=== PATIENT | female | born 2000 | race American Indian/Alaskan Native ===

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

== ENCOUNTER 2020-02-24 05:37 | Emergency (ER) | payer MEDICAID ==
[2020-02-24 07:11] LABS: Bacteria,Urine 2+ /HPF (Negative); Bilirubin,Urine NEG (Negative); Blood,Urine SM (Negative); Color,Urine Yellow (Yellow)
[2020-02-24 07:17] LABS: WBC,Urine > 182.0 /HPF (0.0-6.0)
[2020-02-24 07:21] LABS: HCG Qualitative,Urine Negative (Negative)
== END 2020-02-24 09:04 | disposition left against medical advice (07) ==
LOC: ED 05:37
DX: R21 Rash and other nonspecific skin eruption (principal); Z53.21 Procedure and treatment not carried out due to patient leaving prior to being seen by health care provider
CPT/HCPCS: 81001; 81025

== ENCOUNTER 2020-04-21 04:48 | Emergency (ER) | payer MEDICAID ==
[2020-04-21 06:04] VITALS: BP 133/85
[2020-04-21 07:08] LABS: Bacteria,Urine 1+ /HPF (Negative); Bilirubin,Urine NEG (Negative); Blood,Urine NEG (Negative); Color,Urine Yellow (Yellow); Protein,Urine <15 mg/dL mg/dL (Negative); Urobilinogen,Urine < 2.0 mg/dL (<2.0); WBC,Urine < 1.0 /HPF (0.0-6.0)
[2020-04-21 07:10] LABS: HCG Qualitative,Urine Negative (Negative)
--- NOTE | 2020-04-21 08:23 | Emergency Department Report ---
ED Female HPI - General Chief complaint: Urogenital-Female Stated complaint: BURNING URINATION/VAGINAL DISCHARGE/POSS STD Time Seen by Provider: 04/21/20 07:33 Source: patient Mode of arrival: Ambulatory Limitations: No Limitations - History of Present Illness Initial comments: This is a 20-year-old female nontoxic, well nourished in appearance, no acute signs of distress presents to the ED with c/o of nausea and vomiting after only taking doxycycline. Patient stated that she was seen by her ACID WASH OPERATOR 2 days ago and was prescribed doxycycline for STDs and stated that every time she takes medications she vomits 1 time. Patient denies any abdominal pain, pelvic pain, chest pain, short of breath, fever, chills, headache, stiff neck, numbness or tingling. Patient denies any diarrhea or constipation. Denies any blood in stool. Patient denies any recent travels. Patient stated allergies to azithromycin. Patient denies any urinary symptoms. -: days(s) Severity scale (0 -10): 0 Improves with: none Worsens with: none Associated Symptoms: nausea/vomiting. denies: vaginal bleeding, abdominal pain, fever/chills, headaches, loss of appetite, dysuria, hematuria, rash, seizure, shortness of breath, syncope, weakness - Related Data Sexually active: Yes Previous Rx's Medication Instructions Recorded Last Taken Type levETIRAcetam [Keppra TAB] 500 mg PO BID #60 tablet 06/17/16 Unknown Rx Acetaminophen/Codeine [Tylenol 1 tab PO Q6H PRN #20 tab 11/28/16 Unknown Rx /Codeine # 3 tab] Amoxicillin/K Clav Tab [Augmentin 1 tab PO Q12HR #20 tab 11/28/16 Unknown Rx 875 mg] Neomy/Polymyx B/Hc (Otic) Soln 4 drops .ROUTE TID #10 ml 11/28/16 Unknown Rx [Cortisporin (Otic) Soln] Ondansetron [Zofran Odt] 4 mg PO Q8HR PRN #12 tab.rapdis 04/21/20 Unknown Rx Allergies Allergy/AdvReac Type Severity Reaction Status Date / Time azithromycin [From Zithromax] Allergy Rash Verified 08/24/13 07:30 ED Review of Systems ROS: Stated complaint: BURNING URINATION/VAGINAL DISCHARGE/POSS STD Other details as noted in HPI Constitutional: denies: chills, fever Eyes: denies: eye pain, eye discharge, vision change ENT: denies: ear pain, throat pain Respiratory: denies: cough, shortness of breath, wheezing Cardiovascular: denies: chest pain, palpitations Endocrine: no symptoms reported Gastrointestinal: nausea, vomiting. denies: abdominal pain, diarrhea, constipation, hematemesis, melena, hematochezia Genitourinary: denies: urgency, dysuria, discharge Musculoskeletal: denies: back pain, joint swelling, arthralgia Skin: denies: rash, lesions Neurological: denies: headache, weakness, paresthesias Psychiatric: denies: anxiety, depression Hematological/Lymphatic: denies: easy bleeding, easy bruising ED Past Medical Hx - Past Medical History Previous Medical History?: Yes Hx Diabetes: Yes Hx Seizures: Yes (new this admission) Hx Psychiatric Treatment: Yes (bipolar) - Surgical History Past Surgical History?: No - Social History Smoking Status: Never Smoker Substance Use Type: None - Medications Home Medications: Home Medications Medication Instructions Recorded Confirmed Last Taken Type levETIRAcetam [Keppra TAB] 500 mg PO BID #60 tablet 06/17/16 Unknown Rx Acetaminophen/Codeine [Tylenol 1 tab PO Q6H PRN #20 tab 11/28/16 Unknown Rx /Codeine # 3 tab] Amoxicillin/K Clav Tab [Augmentin 1 tab PO Q12HR #20 tab 11/28/16 Unknown Rx 875 mg] Neomy/Polymyx B/Hc (Otic) Soln 4 drops .ROUTE TID #10 ml 11/28/16 Unknown Rx [Cortisporin (Otic) Soln] Ondansetron [Zofran Odt] 4 mg PO Q8HR PRN #12 tab.rapdis 04/21/20 Unknown Rx ED Physical Exam - General Limitations: No Limitations General appearance: alert, in no apparent distress - Head Head exam: Present: atraumatic, normocephalic - Eye Eye exam: Present: normal appearance - Neck Neck exam: Present: normal inspection, full ROM - Respiratory Respiratory exam: Absent: respiratory distress - Cardiovascular Cardiovascular Exam: Present: regular rate - GI/Abdominal GI/Abdominal exam: Present: soft, normal bowel sounds. Absent: distended, tenderness, guarding, rebound, rigid, diminished bowel sounds - Extremities Exam Extremities exam: Present: normal inspection, full ROM - Back Exam Back exam: Present: normal inspection, full ROM - Neurological Exam Neurological exam: Present: alert, oriented X3, normal gait - Psychiatric Psychiatric exam: Present: normal affect, normal mood - Skin Skin exam: Present: warm, dry, intact, normal color. Absent: rash ED Course Vital Signs 04/21/20 05:47 Temperature 98.3 F Pulse Rate 85 Respiratory 18 Rate Blood Pressure 133/85 O2 Sat by Pulse 100 Oximetry - Reevaluation(s) Reevaluation #1: 04/21/20 08:21 Patient is speaking in full sentences with no signs of distress noted. ED Medical Decision Making - Medical Decision Making This is a 20-year-old female that presents with nausea and vomiting. Patient is stable and was examined by me. There is no abdominal tenderness. Patient is currently being treated and seen by ACID WASH OPERATOR for STDs. Urine unremarkable. Patient be discharged with Zofran and was instructed to take Zofran prior to taking medication for nausea and vomiting. Negative signs of symptoms of appendicitis, cholecystitis or acute abdomen. Labs obtained. UA obtained. Xr abdomen/chest xray obtained and dictated by the radiologist. Patient is notified of the report with no questions noted by the patient. Vital signs are stable prior to discharge. A by mouth challenge has been obtained and patient tolerated well with no nausea vomiting. Patient was also instructed to call her ACID WASH OPERATOR tomorrow and see if further medication needs to be adjusted due to vomiting. Patient was also instructed to Follow-up with a OBGYN doctor in 3-5 days or if symptoms worsen and continue return to emergency room as soon as possible. At time of discharge, the patient does not seem toxic or ill in appearance. No acute signs of distress noted. Patient agrees to discharge treatment plan of care. No further questions noted by the patient. Critical care attestation.: If time is entered above; I have spent that time in minutes in the direct care of this critically ill patient, excluding procedure time. ED Disposition Clinical Impression: Nausea & vomiting Qualifiers: Vomiting type: unspecified Vomiting Intractability: non-intractable Qualified Code(s): R11.2 - Nausea with vomiting, unspecified Disposition: DC-01 TO HOME OR SELFCARE Is pt being admited?: No Does the pt Need Aspirin: No Condition: Stable Instructions: Nausea and Vomiting, Adult Additional Instructions: Follow-up with a primary care doctor in 3-5 days or if symptoms worsen and continue return to emergency room as soon as possible. Prescriptions: Ondansetron [Zofran Odt] 4 mg PO Q8HR PRN #12 tab.rapdis PRN Reason: nausea Referrals: PRIMARY CAREMD [Primary Care Provider] - 3-5 Days CHARO GUO MD [Staff Physician] - 3-5 Days Forms: Work/School Release Form(ED)
== END 2020-04-21 08:37 | disposition home or self-care (01) ==
LOC: ED 04:48
DX: R11.2 Nausea with vomiting, unspecified (principal); E11.9 Type 2 diabetes mellitus without complications; R56.9 Unspecified convulsions; F31.9 Bipolar disorder, unspecified; Z79.899 Other long term (current) drug therapy; Z88.1 Allergy status to other antibiotic agents
CPT/HCPCS: 81001; 81025

== ENCOUNTER 2020-10-01 10:57 | Emergency (ER) | payer MEDICAID ==
--- NOTE | 2020-10-01 12:26 | Event Note ---
ED Screening Note Date of service: 10/01/20 Time: 12:22 ED Screening Note: Nurses is a 20-year-old diabetic female presents with hyperglycemia. Seems alcohol intoxicated. FBG > 600 Charge nurse notified This initial assessment/diagnostic orders/clinical plan/treatment(s) is/are subject to change based on patients health status, clinical progression and re- assessment by fellow clinical providers in the ED. Further treatment and workup at subsequent clinical providers discretion. Patient/guardian urged not to elope from the ED as their condition may be serious if not clinically assessed and managed. Initial orders include: Labs, urine, IV fluids, insulin 10
[2020-10-01 12:27] VITALS: BP 147/87
[2020-10-01 15:33] LABS: Bilirubin,Urine NEG (Negative); Blood,Urine MOD (Negative); Color,Urine Colorless (Yellow); Mucus,Urine FEW /HPF; Protein,Urine <15 mg/dL mg/dL (Negative); Urobilinogen,Urine < 2.0 mg/dL (<2.0); WBC,Urine < 1.0 /HPF (0.0-6.0)
--- NOTE | 2020-10-02 14:55 | Electrocardiograph Report ---
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
== END 2020-10-01 16:30 ==
LOC: ED 10:57
DX: E11.65 Type 2 diabetes mellitus with hyperglycemia (principal); Z53.21 Procedure and treatment not carried out due to patient leaving prior to being seen by health care provider
CPT/HCPCS: 81001

== ENCOUNTER 2020-10-02 10:25 | Inpatient (IN) | payer MEDICAID ==
[2020-10-02] MEDS ORDERED: NALOXONE 2 MG/2 ML INJ ONE (10:31)
[2020-10-02] MEDS ORDERED: SODIUM CHLORIDE 0.9% 1000 ML 1,000 ML IV ONE ×2 (10:34→11:34)
--- NOTE | 2020-10-02 10:39 | Emergency Department Report ---
HPI - General Time Seen by Provider: 10/02/20 10:34 - HPI HPI: This is a 20-year-old -[place] female presents to the emergency department from home unresponsive. Per the patient's significant other, who was not there when EMS arrived, the patient allegedly was awake and alert at about 6:30 AM. The patient's mother found her in this current unresponsive state just prior to presentation. EMS found the patient to have a critically high blood sugar on Accu-Chek. Initially the patient had hypertension and then began having hypotension. She was given some IV fluid resuscitation in route. Mom says that she has insulin-dependent diabetes for which she is on Lantus and another insulin medication, but she is often noncompliant and has been out of her medication for at least 1 week. Mom also admits that the patient has been taking "beans", which is apparently street sling for ecstasy. The patient has a history of bipolar disorder. She has been in diabetic ketoacidosis previously. Our records indicate that the patient has also been here for a drug overdose for suicidal intent. Patient is a poor historian secondary to her current medical condition. ED Past Medical Hx - Past Medical History Hx Diabetes: Yes Hx Seizures: Yes (new this admission) Hx Psychiatric Treatment: Yes (bipolar) - Social History Smoking Status: Never Smoker Substance Use Type: None - Medications Home Medications: Home Medications Medication Instructions Recorded Confirmed Last Taken Type levETIRAcetam [Keppra TAB] 500 mg PO BID #60 tablet 06/17/16 Unknown Rx Acetaminophen/Codeine [Tylenol 1 tab PO Q6H PRN #20 tab 11/28/16 Unknown Rx /Codeine # 3 tab] Amoxicillin/K Clav Tab [Augmentin 1 tab PO Q12HR #20 tab 11/28/16 Unknown Rx 875 mg] Neomy/Polymyx B/Hc (Otic) Soln 4 drops .ROUTE TID #10 ml 11/28/16 Unknown Rx [Cortisporin (Otic) Soln] Ondansetron [Zofran Odt] 4 mg PO Q8HR PRN #12 tab.rapdis 04/21/20 Unknown Rx ED Review of Systems ROS: Stated complaint: UNRESPONSIVE Other details as noted in HPI Comment: Unobtainable due to pts medical conditions Physical Exam - Physical Exam Physical Exam: GENERAL: The patient is ill-appearing. HENT: Normocephalic. Atraumatic. Patient has moist mucous membranes. EYES: Pupils equal reactive to light bilaterally. NECK: Supple. Trachea is midline. CHEST/LUNGS: Clear to auscultation. Shallow breaths. HEART/CARDIOVASCULAR: Regular. There is mild tachycardia. There is no murmur. ABDOMEN: Abdomen is soft, nontender. Patient has normal bowel sounds. There is no abdominal distention. SKIN: Skin is warm and dry. NEURO: Patient is unresponsive except to painful stimuli. Nonverbal. Not following commands. MUSCULOSKELETAL: There is no tenderness or deformity. ED Course - Consultations Consultation #1: 10/02/20 12:05 I spoke to the major account representative on-call, Dr. Pitt, to let him know about the patient's ED course thus far and the impending consult for ICU management. Given the patient's DKA and severe acidosis, he has recommended a sodium bicarb drip with 3 A in sterile water to be run at 100 cc/h. - Central Line Placement Right Femoral Consent Obtained: verbal consent (From Mom) Time Out Performed: Yes Patient Placed on Monitor/Pulse Ox: Yes MD Prep: mask, gown, gloves Central Line Prep: Chlorhexidine scrub Local Anesthesia Used: Lidocaine 1% Amount of Anesthesia Used (mls): 3 Ultrasound Used for Placement: Yes Central Line Lumen Inserted: triple Reason for Insertion: Volume Resuscitation Bloods Obtained for Lab: No Central Line Position: good blood return, all ports aspirated, flus, sutured in place with nyl Dressing Applied: Tegaderm, sterile gauze/tape Patient Tolerated Procedure: well Complications: none ED Medical Decision Making - Lab Data Result diagrams: 10/02/20 10:44 10/02/20 13:55 Lab Results 10/02/20 10/02/20 10/02/20 Range/Units 10:35 10:44 10:44 WBC 42.4 H* (4.5-11.0) K/mm3 RBC 3.60 L (3.65-5.03) M/mm3 Hgb 11.3 (10.1-14.3) gm/dl Hct 46.6 H (30.3-42.9) % MCV 130 H (79-97) fl MCH 31 (28-32) pg MCHC 24 L (30-34) % RDW 17.7 H (13.2-15.2) % Plt Count 316 (140-440) K/mm3 Lymph # (Auto) Gi Technician Add Manual Diff Complete Total Counted 200 Seg Neuts % (Manual) 73.5 H (40.0-70.0) % Band Neutrophils % 1.5 % Lymphocytes % (Manual) 15.5 (13.4-35.0) % Monocytes % (Manual) 9.0 H (0.0-7.3) % Metamyelocytes % 0.5 % Nucleated RBC % Not Reportable Seg Neutrophils # Man 31.2 H (1.8-7.7) K/mm3 Band Neutrophils # 0.6 K/mm3 Lymphocytes # (Manual) 6.6 H (1.2-5.4) K/mm3 Abs React Lymphs (Man) 0.0 K/mm3 Monocytes # (Manual) 3.8 H (0.0-0.8) K/mm3 Eosinophils # (Manual) 0.0 (0.0-0.4) K/mm3 Basophils # (Manual) 0.0 (0.0-0.1) K/mm3 Metamyelocytes # 0.2 K/mm3 Myelocytes # 0.0 K/mm3 Promyelocytes # 0.0 K/mm3 Blast Cells # 0.0 K/mm3 WBC Morphology Not Reportable Hypersegmented Neuts Not Reportable Hyposegmented Neuts Not Reportable Hypogranular Neuts Not Reportable Smudge Cells Not Reportable Toxic Granulation Not Reportable Toxic Vacuolation Not Reportable Dohle Bodies Not Reportable Pelger-Huet Anomaly Not Reportable Alessio Rods Not Reportable Platelet Estimate Consistent w auto Clumped Platelets Not Reportable Plt Clumps, EDTA Not Reportable Large Platelets Few Giant Platelets Not Reportable Platelet Satelliting Not Reportable Plt Morphology Comment Not Reportable RBC Morphology Not Reportable Dimorphic RBCs Not Reportable Polychromasia Few Hypochromasia Not Reportable Poikilocytosis Not Reportable Anisocytosis 1+ Microcytosis Not Reportable Macrocytosis 1+ Spherocytes Not Reportable Pappenheimer Bodies Not Reportable Sickle Cells Not Reportable Target Cells Not Reportable Tear Drop Cells Not Reportable Ovalocytes Not Reportable Helmet Cells Not Reportable [place] Bodies Not Reportable [place] Rings Not Reportable [place] Cells Not Reportable Bite Cells Not Reportable Crenated Cell Not Reportable Elliptocytes Not Reportable Acanthocytes (Spur) Not Reportable Rouleaux Not Reportable Hemoglobin C Crystals Not Reportable Schistocytes Not Reportable Malaria parasites Not Reportable Luis Bodies Not Reportable Hem Pathologist Commnt No VBG pH (7.320-7.420) Sodium 126 L (137-145) mmol/L Potassium 7.6 H* (3.6-5.0) mmol/L Chloride 75.9 L (98-107) mmol/L Carbon Dioxide < 2.0 L* (22-30) mmol/L Anion Gap 56 mmol/L BUN 42 H (7-17) mg/dL Creatinine 3.2 H (0.6-1.2) mg/dL Estimated GFR 22 ml/min BUN/Creatinine Ratio 13 % Glucose 1603 H* (65-100) mg/dL POC Glucose > 600 H (70-105) mg/dL Ketones Quantitative (Negative) Lactic Acid (0.7-2.0) mmol/L Calcium 8.5 (8.4-10.2) mg/dL Phosphorus (2.5-4.5) mg/dL Magnesium (1.7-2.3) mg/dL Total Bilirubin 0.20 (0.1-1.2) mg/dL AST 24 (5-40) units/L ALT 21 (7-56) units/L Alkaline Phosphatase 165 H (35-129) units/L Ammonia (25-60) umol/L Total Creatine Kinase 357 H (30-135) units/L Total Protein 7.2 (6.3-8.2) g/dL Albumin 3.8 L (3.9-5) g/dL Albumin/Globulin Ratio 1.1 % TSH (0.270-4.200) mlU/mL HCG, Qual (Negative) Salicylates (2.8-20.0) mg/dL Acetaminophen (10.0-30.0) ug/mL Plasma/Serum Alcohol (0-0.07) % 10/02/20 10/02/20 10/02/20 Range/Units 10:44 10:44 10:44 WBC (4.5-11.0) K/mm3 RBC (3.65-5.03) M/mm3 Hgb (10.1-14.3) gm/dl Hct (30.3-42.9) % MCV (79-97) fl MCH (28-32) pg MCHC (30-34) % RDW (13.2-15.2) % Plt Count (140-440) K/mm3 Lymph # (Auto) Add Manual Diff Total Counted Seg Neuts % (Manual) (40.0-70.0) % Band Neutrophils % % Lymphocytes % (Manual) (13.4-35.0) % Monocytes % (Manual) (0.0-7.3) % Metamyelocytes % % Nucleated RBC % Seg Neutrophils # Man (1.8-7.7) K/mm3 Band Neutrophils # K/mm3 Lymphocytes # (Manual) (1.2-5.4) K/mm3 Abs React Lymphs (Man) K/mm3 Monocytes # (Manual) (0.0-0.8) K/mm3 Eosinophils # (Manual) (0.0-0.4) K/mm3 Basophils # (Manual) (0.0-0.1) K/mm3 Metamyelocytes # K/mm3 Myelocytes # K/mm3 Promyelocytes # K/mm3 Blast Cells # K/mm3 WBC Morphology Hypersegmented Neuts Hyposegmented Neuts Hypogranular Neuts Smudge Cells Toxic Granulation Toxic Vacuolation Dohle Bodies Pelger-Huet Anomaly Alessio Rods Platelet Estimate Clumped Platelets Plt Clumps, EDTA Large Platelets Giant Platelets Platelet Satelliting Plt Morphology Comment RBC Morphology Dimorphic RBCs Polychromasia Hypochromasia Poikilocytosis Anisocytosis Microcytosis Macrocytosis Spherocytes Pappenheimer Bodies Sickle Cells Target Cells Tear Drop Cells Ovalocytes Helmet Cells Masters-[place] Bodies [place] Rings Yu Cells Bite Cells Crenated Cell Elliptocytes Acanthocytes (Spur) Rouleaux Hemoglobin C Crystals Schistocytes Malaria parasites Luis Bodies Hem Pathologist Commnt VBG pH (7.320-7.420) Sodium (137-145) mmol/L Potassium (3.6-5.0) mmol/L Chloride (98-107) mmol/L Carbon Dioxide (22-30) mmol/L Anion Gap mmol/L BUN (7-17) mg/dL Creatinine (0.6-1.2) mg/dL Estimated GFR ml/min BUN/Creatinine Ratio % Glucose (65-100) mg/dL POC Glucose (70-105) mg/dL Ketones Quantitative (Negative) Lactic Acid 8.20 H* (0.7-2.0) mmol/L Calcium (8.4-10.2) mg/dL Phosphorus (2.5-4.5) mg/dL Magnesium (1.7-2.3) mg/dL Total Bilirubin (0.1-1.2) mg/dL AST (5-40) units/L ALT (7-56) units/L Alkaline Phosphatase (35-129) units/L Ammonia 97.0 H (25-60) umol/L Total Creatine Kinase (30-135) units/L Total Protein (6.3-8.2) g/dL Albumin (3.9-5) g/dL Albumin/Globulin Ratio % TSH 0.317 (0.270-4.200) mlU/mL HCG, Qual (Negative) Salicylates (2.8-20.0) mg/dL Acetaminophen (10.0-30.0) ug/mL Plasma/Serum Alcohol (0-0.07) % 10/02/20 10/02/20 10/02/20 Range/Units 10:44 10:44 10:44 WBC (4.5-11.0) K/mm3 RBC (3.65-5.03) M/mm3 Hgb (10.1-14.3) gm/dl Hct (30.3-42.9) % MCV (79-97) fl MCH (28-32) pg MCHC (30-34) % RDW (13.2-15.2) % Plt Count (140-440) K/mm3 Lymph # (Auto) Add Manual Diff Total Counted Seg Neuts % (Manual) (40.0-70.0) % Band Neutrophils % % Lymphocytes % (Manual) (13.4-35.0) % Monocytes % (Manual) (0.0-7.3) % Metamyelocytes % % Nucleated RBC % Seg Neutrophils # Man (1.8-7.7) K/mm3 Band Neutrophils # K/mm3 Lymphocytes # (Manual) (1.2-5.4) K/mm3 Abs React Lymphs (Man) K/mm3 Monocytes # (Manual) (0.0-0.8) K/mm3 Eosinophils # (Manual) (0.0-0.4) K/mm3 Basophils # (Manual) (0.0-0.1) K/mm3 Metamyelocytes # K/mm3 Myelocytes # K/mm3 Promyelocytes # K/mm3 Blast Cells # K/mm3 WBC Morphology Hypersegmented Neuts Hyposegmented Neuts Hypogranular Neuts Smudge Cells Toxic Granulation Toxic Vacuolation Dohle Bodies Pelger-Huet Anomaly Alessio Rods Platelet Estimate Clumped Platelets Plt Clumps, EDTA Large Platelets Giant Platelets Platelet Satelliting Plt Morphology Comment RBC Morphology Dimorphic RBCs Polychromasia Hypochromasia Poikilocytosis Anisocytosis Microcytosis Macrocytosis Spherocytes Pappenheimer Bodies Sickle Cells Target Cells Tear Drop Cells Ovalocytes Helmet Cells Masters-[place] Bodies [place] Rings [place] Cells Bite Cells Crenated Cell Elliptocytes Acanthocytes (Spur) Rouleaux Hemoglobin C Crystals Schistocytes Malaria parasites Luis Bodies Hem Pathologist Commnt VBG pH (7.320-7.420) Sodium (137-145) mmol/L Potassium (3.6-5.0) mmol/L Chloride (98-107) mmol/L Carbon Dioxide (22-30) mmol/L Anion Gap mmol/L BUN (7-17) mg/dL Creatinine (0.6-1.2) mg/dL Estimated GFR ml/min BUN/Creatinine Ratio % Glucose (65-100) mg/dL POC Glucose (70-105) mg/dL Ketones Quantitative (Negative) Lactic Acid (0.7-2.0) mmol/L Calcium (8.4-10.2) mg/dL Phosphorus (2.5-4.5) mg/dL Magnesium (1.7-2.3) mg/dL Total Bilirubin (0.1-1.2) mg/dL AST (5-40) units/L ALT (7-56) units/L Alkaline Phosphatase (35-129) units/L Ammonia (25-60) umol/L Total Creatine Kinase (30-135) units/L Total Protein (6.3-8.2) g/dL Albumin (3.9-5) g/dL Albumin/Globulin Ratio % TSH (0.270-4.200) mlU/mL HCG, Qual (Negative) Salicylates < 0.3 L (2.8-20.0) mg/dL Acetaminophen 5.0 L (10.0-30.0) ug/mL Plasma/Serum Alcohol < 0.01 (0-0.07) % 10/02/20 10/02/20 10/02/20 Range/Units 10:44 10:44 10:44 WBC (4.5-11.0) K/mm3 RBC (3.65-5.03) M/mm3 Hgb (10.1-14.3) gm/dl Hct (30.3-42.9) % MCV (79-97) fl MCH (28-32) pg MCHC (30-34) % RDW (13.2-15.2) % Plt Count (140-440) K/mm3 Lymph # (Auto) Add Manual Diff Total Counted Seg Neuts % (Manual) (40.0-70.0) % Band Neutrophils % % Lymphocytes % (Manual) (13.4-35.0) % Monocytes % (Manual) (0.0-7.3) % Metamyelocytes % % Nucleated RBC % Seg Neutrophils # Man (1.8-7.7) K/mm3 Band Neutrophils # K/mm3 Lymphocytes # (Manual) (1.2-5.4) K/mm3 Abs React Lymphs (Man) K/mm3 Monocytes # (Manual) (0.0-0.8) K/mm3 Eosinophils # (Manual) (0.0-0.4) K/mm3 Basophils # (Manual) (0.0-0.1) K/mm3 Metamyelocytes # K/mm3 Myelocytes # K/mm3 Promyelocytes # K/mm3 Blast Cells # K/mm3 WBC Morphology Hypersegmented Neuts Hyposegmented Neuts Hypogranular Neuts Smudge Cells Toxic Granulation Toxic Vacuolation Dohle Bodies Pelger-Huet Anomaly Alessio Rods Platelet Estimate Clumped Platelets Plt Clumps, EDTA Large Platelets Giant Platelets Platelet Satelliting Plt Morphology Comment RBC Morphology Dimorphic RBCs Polychromasia Hypochromasia Poikilocytosis Anisocytosis Microcytosis Macrocytosis Spherocytes Pappenheimer Bodies Sickle Cells Target Cells Tear Drop Cells Ovalocytes Helmet Cells Masters-[place] Bodies [place] Rings Yu Cells Bite Cells Crenated Cell Elliptocytes Acanthocytes (Spur) Rouleaux Hemoglobin C Crystals Schistocytes Malaria parasites Luis Bodies Hem Pathologist Commnt VBG pH 6.867 L* (7.320-7.420) Sodium (137-145) mmol/L Potassium (3.6-5.0) mmol/L Chloride (98-107) mmol/L Carbon Dioxide (22-30) mmol/L Anion Gap mmol/L BUN (7-17) mg/dL Creatinine (0.6-1.2) mg/dL Estimated GFR ml/min BUN/Creatinine Ratio % Glucose (65-100) mg/dL POC Glucose (70-105) mg/dL Ketones Quantitative Large (Negative) Lactic Acid (0.7-2.0) mmol/L Calcium (8.4-10.2) mg/dL Phosphorus (2.5-4.5) mg/dL Magnesium (1.7-2.3) mg/dL Total Bilirubin (0.1-1.2) mg/dL AST (5-40) units/L ALT (7-56) units/L Alkaline Phosphatase (35-129) units/L Ammonia (25-60) umol/L Total Creatine Kinase (30-135) units/L Total Protein (6.3-8.2) g/dL Albumin (3.9-5) g/dL Albumin/Globulin Ratio % TSH (0.270-4.200) mlU/mL HCG, Qual Negative (Negative) Salicylates (2.8-20.0) mg/dL Acetaminophen (10.0-30.0) ug/mL Plasma/Serum Alcohol (0-0.07) % 10/02/20 10/02/20 10/02/20 Range/Units 12:14 12:35 12:35 WBC (4.5-11.0) K/mm3 RBC (3.65-5.03) M/mm3 Hgb (10.1-14.3) gm/dl Hct (30.3-42.9) % MCV (79-97) fl MCH (28-32) pg MCHC (30-34) % RDW (13.2-15.2) % Plt Count (140-440) K/mm3 Lymph # (Auto) Add Manual Diff Total Counted Seg Neuts % (Manual) (40.0-70.0) % Band Neutrophils % % Lymphocytes % (Manual) (13.4-35.0) % Monocytes % (Manual) (0.0-7.3) % Metamyelocytes % % Nucleated RBC % Seg Neutrophils # Man (1.8-7.7) K/mm3 Band Neutrophils # K/mm3 Lymphocytes # (Manual) (1.2-5.4) K/mm3 Abs React Lymphs (Man) K/mm3 Monocytes # (Manual) (0.0-0.8) K/mm3 Eosinophils # (Manual) (0.0-0.4) K/mm3 Basophils # (Manual) (0.0-0.1) K/mm3 Metamyelocytes # K/mm3 Myelocytes # K/mm3 Promyelocytes # K/mm3 Blast Cells # K/mm3 WBC Morphology Hypersegmented Neuts Hyposegmented Neuts Hypogranular Neuts Smudge Cells Toxic Granulation Toxic Vacuolation Dohle Bodies Pelger-Huet Anomaly Alessio Rods Platelet Estimate Clumped Platelets Plt Clumps, EDTA Large Platelets Giant Platelets Platelet Satelliting Plt Morphology Comment RBC Morphology Dimorphic RBCs Polychromasia Hypochromasia Poikilocytosis Anisocytosis Microcytosis Macrocytosis Spherocytes Pappenheimer Bodies Sickle Cells Target Cells Tear Drop Cells Ovalocytes Helmet Cells Masters-[place] Bodies [place] Rings [place] Cells Bite Cells Crenated Cell Elliptocytes Acanthocytes (Spur) Rouleaux Hemoglobin C Crystals Schistocytes Malaria parasites Luis Bodies Hem Pathologist Commnt VBG pH (7.320-7.420) Sodium 128 L (137-145) mmol/L Potassium 7.5 H* (3.6-5.0) mmol/L Chloride 81.1 L (98-107) mmol/L Carbon Dioxide 3 L* (22-30) mmol/L Anion Gap 51 mmol/L BUN 42 H (7-17) mg/dL Creatinine 3.4 H (0.6-1.2) mg/dL Estimated GFR 20 ml/min BUN/Creatinine Ratio 12 % Glucose 1556 H* (65-100) mg/dL POC Glucose (70-105) mg/dL Ketones Quantitative (Negative) Lactic Acid 7.70 H* (0.7-2.0) mmol/L Calcium 7.7 L (8.4-10.2) mg/dL Phosphorus 16.10 H (2.5-4.5) mg/dL Magnesium 3.50 H (1.7-2.3) mg/dL Total Bilirubin (0.1-1.2) mg/dL AST (5-40) units/L ALT (7-56) units/L Alkaline Phosphatase (35-129) units/L Ammonia (25-60) umol/L Total Creatine Kinase (30-135) units/L Total Protein (6.3-8.2) g/dL Albumin (3.9-5) g/dL Albumin/Globulin Ratio % TSH (0.270-4.200) mlU/mL HCG, Qual (Negative) Salicylates (2.8-20.0) mg/dL Acetaminophen (10.0-30.0) ug/mL Plasma/Serum Alcohol (0-0.07) % - EKG Data -: EKG Interpreted by Me EKG shows normal: sinus rhythm, axis (Left axis deviation), intervals (Prolonged QTC), QRS complexes (Nonspecific IVCD, LVH), ST-T waves Rate: normal - EKG Data When compared to previous EKG there are: previous EKG unavailable Interpretation: other (Sinus rhythm at 89 bpm, left axis deviation, prolonged QTC, IVCD, LVH.) - Radiology Data Radiology results: report reviewed, image reviewed interpreted by me: Chest x-ray does not show any acute process. There are no pleural effusions, obvious pneumonia and there is no pneumothorax. No significant cardiomegaly. CT ABDOMEN AND PELVIS WITHOUT CONTRAST INDICATION / CLINICAL INFORMATION: ABD Pain, leukocytosis, DKA. TECHNIQUE: Axial CT images were obtained through the abdomen and pelvis without IV contrast. All CT scans at this location are performed using CT dose reduction for ALARA by means of automated exposure control. COMPARISON: None available. FINDINGS: LOWER CHEST: No significant abnormality. LIVER: No significant abnormality. GALLBLADDER: No significant abnormality. BILE DUCTS: No significant abnormality. PANCREAS: No significant abnormality. SPLEEN: No significant abnormality. ADRENALS: No significant abnormality. RIGHT KIDNEY / URETER: No significant abnormality. LEFT KIDNEY / URETER: No significant abnormality. STOMACH / SMALL BOWEL: No significant abnormality. COLON: No significant abnormality. APPENDIX: No significant abnormality. PERITONEUM: No free fluid. No free air. No fluid collection. LYMPH NODES: No significant adenopathy. VASCULAR STRUCTURES: No significant abnormality. URINARY BLADDER: Rebollar catheter in satisfactory position. REPRODUCTIVE ORGANS: No significant abnormality. ADDITIONAL FINDINGS: Right femoral catheter in satisfactory position. SKELETAL SYSTEM: No significant abnormality. IMPRESSION: No acute abnormality. CT head/brain wo con INDICATION: Altered mental status. TECHNIQUE: Routine CT head without contrast. All CT scans at this location are performed using CT dose reduction for ALARA by means of automated exposure control. COMPARISON: Head CT on 06/14/2016 FINDINGS: Exam is mildly limited due to motion artifact. BRAIN / INTRACRANIAL CONTENTS: No appreciable hemorrhage, mass effect, midline shift, or hydrocephalus. No appreciable acute large territorial or lacunar infarct. ORBITS: No significant abnormality of visualized orbits. SINUSES / MASTOIDS: No significant abnormality of visualized sinuses and mastoid air cells. ADDITIONAL FINDINGS: None. IMPRESSION: 1. Mildly limited exam due to motion artifact. No appreciable acute intracranial abnormality. - Medical Decision Making This patient presents to the emergency department with altered mental status and a critically high blood sugar on Accu-Chek. Mom had also said that the patient had some recent ecstasy use. Even though there was no known opiate use, I gave her Narcan with hopes that she would return to normal mentation, but this did not work. The patient has the appearance of someone in severe DKA and this was later confirmed with her laboratory studies. Patient has a venous acidosis of 6.8, and anion gap of 56, a blood sugar of 1600. The patient also has a leukocytosis of about 40,000. She has hyper kalemia, hyperphosphatemia, hypocalcemia, hypomagnesemia. The patient was given 3 L of IV fluid resuscitation and still had hypotension. For this reason a right femoral vein CVC was placed so that pressors could be started. An insulin drip has been started. Due to the leukocytosis and a lactic acidosis of 8, the patient was treated empirically with IV antibiotics. Patient has acute renal failure with a GFR of about 20. CT scan of the head without contrast did not show any large vessel occlusion, hemorrhage, edema, hydrocephalus, or any other acute process. CT scan of the abdomen and pelvis without contrast also did not show any acute process. The major account representative was contacted and consulted. After consultation the patient was started on a sodium bicarbonate drip. Patient will be admitted to the ICU and was accepted for admission by the hospitalist, Dr. Hannah. Critical Care Time: Yes Critical care time in (mins) excluding proc time.: 80 Critical care attestation.: If time is entered above; I have spent that time in minutes in the direct care of this critically ill patient, excluding procedure time. Critical care time was spent on this patient in doing her initial evaluation, multiple reevaluations, ordering and interpretation of labs and imaging, IV antibiotics, multiple liters of IV fluid resuscitation due to hypotension and hyperglycemia, IV insulin drip, multiple discussions with the patient's family, discussion with the major account representative and hospitalist services. This does not include the separately billable procedures including the central venous catheter placement. Critical Care Time: 80 minutes ED Disposition Clinical Impression: DKA (diabetic ketoacidoses), Metabolic encephalopathy, Acute kidney injury (COLT) with acute tubular necrosis (ATN), Metabolic acidosis, Hyperkalemia, Hyperphosphatemia, SIRS (systemic inflammatory response syndrome) Disposition: [id number] OP ADMIT IP TO THIS HOSP Is pt being admited?: Yes Condition: Serious Time of Disposition: 15:17
[2020-10-02 11:33] LABS: Mean Corpuscular HGB Conc 24 % (30-34); Platelet Count 316 K/mm3 (140-440); Red Cell Distribution Width 17.7 % (13.2-15.2)
[2020-10-02 11:34] LABS: Hematocrit 46.6 % (30.3-42.9); Hemoglobin 11.3 gm/dl (10.1-14.3); Mean Corpuscular Volume 130 fl (79-97)
[2020-10-02] MEDS ORDERED: cefTRIAXone/NS 1 GM/50 ML 1 GM/50 ML BAG IV ONE (11:51)
[2020-10-02 11:54] LABS: Alanine Aminotransferase 21 units/L (7-56); Albumin 3.8 g/dL (3.9-5); BUN/Creatinine Ratio 13; Blood Urea Nitrogen 42 mg/dL (7-17); Calcium 8.5 mg/dL (8.4-10.2); Hemolysis Index 2
[2020-10-02 12:05] LABS: Band Neutrophils # (Manual) 0.6 K/mm3; Total Cells Counted 200
--- NOTE | 2020-10-02 12:06 | XRay Report ---
CHEST 1 VIEW 10/02/2020 11:42 AM INDICATION / CLINICAL INFORMATION: Altered mental status COMPARISON: None available. FINDINGS: SUPPORT DEVICES: None. HEART / MEDIASTINUM: No significant abnormality. LUNGS / PLEURA: No significant pulmonary or pleural abnormality. No pneumothorax. ADDITIONAL FINDINGS: No significant additional findings. IMPRESSION: 1. No acute findings. Signer Name: Josué Gaines MD Signed: 10/02/2020 12:01 PM Workstation Name: [id number]
[2020-10-02 12:07] LABS: Anisocytosis 1+; Large Platelets Few; Macrocytosis 1+; Platelet Estimate Consistent w Auto
[2020-10-02] MEDS ORDERED: SODIUM BICARB 8.4% 50 MEQ/50 ML SYRINGE IV ONE ×3 (12:24→16:46)
[2020-10-02] MEDS: SODIUM BICARBONATE 150 MEQ in WATER FOR INJECTION (PF) 1,000 ML IV SCH (12:47)
[2020-10-02] MEDS ORDERED: INSULIN REGULAR, HUMAN 100 UNITS in SODIUM CHLORIDE 0.9% 99 ML IV SCH (13:00)
[2020-10-02] MEDS ORDERED: DOXYCYCLINE HYCLATE 100 MG in SODIUM CHLORIDE 0.9% 250ML 250 ML IV ONE (13:00)
[2020-10-02] MEDS ORDERED: SODIUM CHLORIDE 0.9% 1000 ML 3,000 ML IV ONE (13:21)
--- NOTE | 2020-10-02 13:23 | History and Physical Report ---
History of Present Illness Chief complaint: Unresponsive History of present illness: 20 YO Female ith DM, Seizure Disorder, Bipolar Disorder, Suicide Attempt in 2017 presents to ED for evaluation. Patient is unresponsive at the time of my evaluation and is unable to provide history. Patient history taken from EMS s taff, ED staff, as well as the patient's mother who is at bedside during exam and interview. As per patient mother the patient was in her usual state of health and spending time with her significant other at around 0630 hrs. The mother arrived at the patient home and the patient was found to be unresponsive. As per the patient's mother the patient has been "taking beans" which is apparently street sling for the drug ecstasy. EMS was notified by the patient's mother and upon arrival the patient was found to be in distress. The patient was transported to [facility] for further care and evaluation of the aforementioned symptoms. The patient was seen and evaluated in the emergency department. All lab and imaging studies reviewed. The patient was found to have DKA, complicated by metabolic encephalopathy, acute kidney injury with acute tubular necrosis. The patient was admitted to ICU and initiated on DKA protocol. The patient was also found to have significant leukocytosis without obvious source of infection. Leukocytosis is suspected secondary to use of ecstasy at this time. Critical care team consulted in the emergency department. Patient is unresponsive at the time my evaluation but has a positive gag reflex and is able to protect her airway without difficulty. Prior admission on 06/14/2016 reviewed. All medication listed at time of admission has been reconciled. Past History Past Medical History: diabetes, seizures, other (See HPI) Past Surgical History: No surgical history, Other (Reviewed) Social history: single, other (Polysubstance abuse) Family history: hypertension Medications and Allergies Allergies Allergy/AdvReac Type Severity Reaction Status Date / Time azithromycin [From Zithromax] Allergy Rash Verified 08/24/13 07:30 Home Medications Medication Instructions Recorded Confirmed Last Taken Type levETIRAcetam [Keppra TAB] 500 mg PO BID #60 tablet 06/17/16 Unknown Rx Acetaminophen/Codeine [Tylenol 1 tab PO Q6H PRN #20 tab 11/28/16 Unknown Rx /Codeine # 3 tab] Amoxicillin/K Clav Tab [Augmentin 1 tab PO Q12HR #20 tab 11/28/16 Unknown Rx 875 mg] Neomy/Polymyx B/Hc (Otic) Soln 4 drops .ROUTE TID #10 ml 11/28/16 Unknown Rx [Cortisporin (Otic) Soln] Ondansetron [Zofran Odt] 4 mg PO Q8HR PRN #12 tab.rapdis 04/21/20 Unknown Rx Active Meds: Active Medications Doxycycline Hyclate 100 mg/ (Sodium Chloride) 250 mls @ 250 mls/hr IV ONCE ONE; Protocol Stop: 10/02/20 13:59 Sodium Bicarbonate 150 meq/ (Sterile Water) 1,150 mls @ 100 mls/hr IV DIRECT CLARE Last Admin: 10/02/20 12:47 Dose: 100 mls/hr Documented by: Calcium Gluconate 1,000 mg/ (Sodium Chloride) 110 mls @ 220 mls/hr IV ONCE ONE Stop: 10/02/20 13:59 Insulin Human Regular 100 (units/ Sodium Chloride) 100 mls @ 1 mls/hr IV TITR CLARE; Protocol Insulin Human Regular 100 (units/ Sodium Chloride) 100 mls @ 1 mls/hr IV TITR CLARE; Protocol Sodium Chloride (Nacl 0.9% 1000 Ml) 1,000 mls @ 150 mls/hr IV DIRECT CLARE Sodium Chloride (Nacl 0.9% 1000 Ml) 3,000 mls @ 999 mls/hr IV BOLUS ONE Stop: 10/02/20 16:21 Sodium Chloride (Sodium Chloride 0.9% 10 Ml Flush Syringe) 10 ml IV BID CLARE Sodium Chloride (Sodium Chloride 0.9% 10 Ml Flush Syringe) 10 ml IV PRN PRN PRN Reason: LINE FLUSH Review of Systems ROS unobtainable: due to mental status Exam - Constitutional Vitals: Temp Pulse Resp BP Pulse Ox 89 25 H 88/31 100 10/02/20 10:37 10/02/20 10:37 10/02/20 10:37 10/02/20 10:37 General appearance: Present: mild distress - EENT Eyes: Present: PERRL ENT: clear oral mucosa, hearing decreased - Neck Neck: Present: supple, normal ROM - Respiratory Respiratory effort: normal Respiratory: bilateral: CTA - Cardiovascular Rhythm: other (Tachycardia) Heart Sounds: Present: S1 & S2. Absent: rub, click - Extremities Extremities: pulses symmetrical, No edema Peripheral Pulses: within normal limits - Abdominal General gastrointestinal: Present: soft, non-tender, non-distended, normal bowel sounds Female genitourinary: Present: normal - Integumentary Integumentary: Present: clear, warm, dry - Musculoskeletal Musculoskeletal: generalized weakness - Psychiatric Psychiatric: no appropriate mood/affect, no intact judgment & insight, no memory intact - Neurologic Neurologic: CNII-XII intact, no focal deficits, moves all extremities, no gait normal Results - Labs CBC & Chem 7: 10/02/20 10:44 10/02/20 10:44 Labs: Abnormal lab results 10/02/20 10/02/20 10/02/20 Range/Units 10:35 10:44 10:44 WBC 42.4 H* (4.5-11.0) K/mm3 RBC 3.60 L (3.65-5.03) M/mm3 Hct 46.6 H (30.3-42.9) % MCV 130 H (79-97) fl MCHC 24 L (30-34) % RDW 17.7 H (13.2-15.2) % Seg Neuts % (Manual) 73.5 H (40.0-70.0) % Monocytes % (Manual) 9.0 H (0.0-7.3) % Seg Neutrophils # Man 31.2 H (1.8-7.7) K/mm3 Lymphocytes # (Manual) 6.6 H (1.2-5.4) K/mm3 Monocytes # (Manual) 3.8 H (0.0-0.8) K/mm3 VBG pH (7.320-7.420) Sodium 126 L (137-145) mmol/L Potassium 7.6 H* (3.6-5.0) mmol/L Chloride 75.9 L (98-107) mmol/L Carbon Dioxide < 2.0 L* (22-30) mmol/L BUN 42 H (7-17) mg/dL Creatinine 3.2 H (0.6-1.2) mg/dL Glucose 1603 H* (65-100) mg/dL POC Glucose > 600 H (70-105) mg/dL Lactic Acid (0.7-2.0) mmol/L Alkaline Phosphatase 165 H (35-129) units/L Ammonia (25-60) umol/L Total Creatine Kinase 357 H (30-135) units/L Albumin 3.8 L (3.9-5) g/dL Salicylates (2.8-20.0) mg/dL Acetaminophen (10.0-30.0) ug/mL 10/02/20 10/02/20 10/02/20 Range/Units 10:44 10:44 10:44 WBC (4.5-11.0) K/mm3 RBC (3.65-5.03) M/mm3 Hct (30.3-42.9) % MCV (79-97) fl MCHC (30-34) % RDW (13.2-15.2) % Seg Neuts % (Manual) (40.0-70.0) % Monocytes % (Manual) (0.0-7.3) % Seg Neutrophils # Man (1.8-7.7) K/mm3 Lymphocytes # (Manual) (1.2-5.4) K/mm3 Monocytes # (Manual) (0.0-0.8) K/mm3 VBG pH (7.320-7.420) Sodium (137-145) mmol/L Potassium (3.6-5.0) mmol/L Chloride (98-107) mmol/L Carbon Dioxide (22-30) mmol/L BUN (7-17) mg/dL Creatinine (0.6-1.2) mg/dL Glucose (65-100) mg/dL POC Glucose (70-105) mg/dL Lactic Acid 8.20 H* (0.7-2.0) mmol/L Alkaline Phosphatase (35-129) units/L Ammonia 97.0 H (25-60) umol/L Total Creatine Kinase (30-135) units/L Albumin (3.9-5) g/dL Salicylates < 0.3 L (2.8-20.0) mg/dL Acetaminophen (10.0-30.0) ug/mL 10/02/20 10/02/20 10/02/20 Range/Units 10:44 10:44 12:14 WBC (4.5-11.0) K/mm3 RBC (3.65-5.03) M/mm3 Hct (30.3-42.9) % MCV (79-97) fl MCHC (30-34) % RDW (13.2-15.2) % Seg Neuts % (Manual) (40.0-70.0) % Monocytes % (Manual) (0.0-7.3) % Seg Neutrophils # Man (1.8-7.7) K/mm3 Lymphocytes # (Manual) (1.2-5.4) K/mm3 Monocytes # (Manual) (0.0-0.8) K/mm3 VBG pH 6.867 L* (7.320-7.420) Sodium (137-145) mmol/L Potassium (3.6-5.0) mmol/L Chloride (98-107) mmol/L Carbon Dioxide (22-30) mmol/L BUN (7-17) mg/dL Creatinine (0.6-1.2) mg/dL Glucose (65-100) mg/dL POC Glucose (70-105) mg/dL Lactic Acid 7.70 H* (0.7-2.0) mmol/L Alkaline Phosphatase (35-129) units/L Ammonia (25-60) umol/L Total Creatine Kinase (30-135) units/L Albumin (3.9-5) g/dL Salicylates (2.8-20.0) mg/dL Acetaminophen 5.0 L (10.0-30.0) ug/mL Assessment and Plan - Patient Problems (1) DKA (diabetic ketoacidosis) Current Visit: No Status: Acute Plan to address problem: DKA protocol: Patient mated to ICU and initiated on insulin drip, IV fluid resuscitation therapy, serial lactic acid level, serial BMP, monitor anion gap, IV fluid resuscitation therapy, potassium repletion as per protocol. The high probability of a clinically significant, sudden or life threatening deterioration of the [cardiac, pulmonary, renal, endocrine, infectious disease] system(s) required my full and direct attention, intervention and personal management. The aggregate critical care time was [95] minutes. This time is in addition to time spent performing reported procedures but includes the following : [x] Data Review and interpretation [x] Patient assessment and monitoring of vital signs [x] Documentation [x] Medication orders and management (2) Seizure disorder Current Visit: Yes Status: Acute Plan to address problem: Neuro check, seizure protocol, aspiration precautions, continue antiepileptic therapy. (3) Metabolic encephalopathy Current Visit: Yes Status: Acute Plan to address problem: CT head, neuro check, seizure precautions, aspiration precautions, supportive care. Treat DKA. (4) Metabolic acidosis Current Visit: Yes Status: Acute (5) Acute kidney injury (COLT) with acute tubular necrosis (ATN) Current Visit: Yes Status: Acute Plan to address problem: IV fluid resuscitation therapy, monitor urine output every shift, repeat BMP in a.m. to monitor serum creatinine as well as GFR. (6) DVT prophylaxis Current Visit: Yes Status: Acute Plan to address problem: SCD to bilateral lower extremities while in bed, prophylactic anticoagulation
[2020-10-02] MEDS ORDERED: SODIUM CHLORIDE 0.9% 1000 ML 1,000 ML IV SCH (13:30)
[2020-10-02] MEDS ORDERED: CALCIUM GLUCONATE 1,000 MG in SODIUM CHLORIDE 0.9% 100 ML IV ONE ×2 (13:30→16:59)
--- NOTE | 2020-10-02 13:32 | Cat Scan Report ---
CT head/brain wo con INDICATION: Altered mental status. TECHNIQUE: Routine CT head without contrast. All CT scans at this location are performed using CT dos e reduction for ALARA by means of automated exposure control. COMPARISON: Head CT on 06/14/2016 FINDINGS: Exam is mildly limited due to motion artifact. BRAIN / INTRACRANIAL CONTENTS: No appreciable hemorrhage, mass effect, midline shift, or hydrocephalu s. No appreciable acute large territorial or lacunar infarct. ORBITS: No significant abnormality of visualized orbits. SINUSES / MASTOIDS: No significant abnormality of visualized sinuses and mastoid air cells. ADDITIONAL FINDINGS: None. IMPRESSION: 1. Mildly limited exam due to motion artifact. No appreciable acute intracranial abnormality. Signer Name: Josué Gaines MD Signed: 10/02/2020 1:27 PM Workstation Name: [id number]
--- NOTE | 2020-10-02 13:35 | Cat Scan Report ---
CT ABDOMEN AND PELVIS WITHOUT CONTRAST INDICATION / CLINICAL INFORMATION: ABD Pain, leukocytosis, DKA. TECHNIQUE: Axial CT images were obtained through the abdomen and pelvis without IV contrast. All CT scans at this location are performed using CT dose reduction for ALARA by means of automated exposure control. COMPARISON: None available. FINDINGS: LOWER CHEST: No significant abnormality. LIVER: No significant abnormality. GALLBLADDER: No significant abnormality. BILE DUCTS: No significant abnormality. PANCREAS: No significant abnormality. SPLEEN: No significant abnormality. ADRENALS: No significant abnormality. RIGHT KIDNEY / URETER: No significant abnormality. LEFT KIDNEY / URETER: No significant abnormality. STOMACH / SMALL BOWEL: No significant abnormality. COLON: No significant abnormality. APPENDIX: No significant abnormality. PERITONEUM: No free fluid. No free air. No fluid collection. LYMPH NODES: No significant adenopathy. VASCULAR STRUCTURES: No significant abnormality. URINARY BLADDER: Rebollar catheter in satisfactory position. REPRODUCTIVE ORGANS: No significant abnormality. ADDITIONAL FINDINGS: Right femoral catheter in satisfactory position. SKELETAL SYSTEM: No significant abnormality. IMPRESSION: No acute abnormality. Signer Name: Len Rendon MD Signed: 10/02/2020 1:30 PM Workstation Name: [id number]
[2020-10-02 13:45] LABS: Calcium 7.7 mg/dL (8.4-10.2)
[2020-10-02 14:28] LABS: BUN/Creatinine Ratio 13; Blood Urea Nitrogen 41 mg/dL (7-17); Calcium 7.3 mg/dL (8.4-10.2); Hemolysis Index 11
[2020-10-02] MEDS: INSULIN REGULAR, HUMAN 100 UNITS in SODIUM CHLORIDE 0.9% 99 ML IV SCH ×2 (14:30→22:51)
--- NOTE | 2020-10-02 14:52 | Electrocardiograph Report ---
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
--- NOTE | 2020-10-02 14:57 | Consultation ---
History of Present Illness Consult date: 10/02/20 Requesting physician: BROWN DAVILA Reason for consult: other (Severe DKA; Severe Sepsis) History of present illness: PULMONARY/CCM CONSULT NOTE (Full dictation # [id number]) Please see dictated notes for full details Past History Past Medical History: diabetes, seizures, other (See HPI) Past Surgical History: No surgical history, Other (Reviewed) Social history: single, other (Polysubstance abuse) Family history: hypertension Medications and Allergies Allergies Allergy/AdvReac Type Severity Reaction Status Date / Time azithromycin [From Zithromax] Allergy Rash Verified 08/24/13 07:30 Home Medications Medication Instructions Recorded Confirmed Last Taken Type levETIRAcetam [Keppra TAB] 500 mg PO BID #60 tablet 06/17/16 Unknown Rx Acetaminophen/Codeine [Tylenol 1 tab PO Q6H PRN #20 tab 11/28/16 Unknown Rx /Codeine # 3 tab] Amoxicillin/K Clav Tab [Augmentin 1 tab PO Q12HR #20 tab 11/28/16 Unknown Rx 875 mg] Neomy/Polymyx B/Hc (Otic) Soln 4 drops .ROUTE TID #10 ml 11/28/16 Unknown Rx [Cortisporin (Otic) Soln] Ondansetron [Zofran Odt] 4 mg PO Q8HR PRN #12 tab.rapdis 04/21/20 Unknown Rx Active Meds: Active Medications Enoxaparin Sodium (Enoxaparin 30 Mg/0.3 Ml Inj) 30 mg SUB-Q QDAY CLARE; Protocol Sodium Bicarbonate 150 meq/ (Sterile Water) 1,150 mls @ 100 mls/hr IV DIRECT CLARE Last Admin: 10/02/20 12:47 Dose: 100 mls/hr Documented by: Insulin Human Regular 100 (units/ Sodium Chloride) 100 mls @ 1 mls/hr IV TITR CLARE; Protocol Last Admin: 10/02/20 14:30 Dose: 8 units/hr, 8 mls/hr Documented by: Sodium Chloride (Nacl 0.9% 1000 Ml) 1,000 mls @ 150 mls/hr IV DIRECT CLARE Sodium Chloride (Nacl 0.9% 1000 Ml) 3,000 mls @ 999 mls/hr IV BOLUS ONE Stop: 10/02/20 16:21 NORepinephrine/NS 8 MG-250 ML (Norepinephrine/Ns 8 Mg-250 Ml (Double Conc)) 8 mg in 250 mls @ 3.75 mls/hr IV TITRATE CLARE; Protocol Levetiracetam (Levetiracetam 500 Mg Tab) 500 mg PO BID CLARE Sodium Chloride (Sodium Chloride 0.9% 10 Ml Flush Syringe) 10 ml IV BID CLARE Sodium Chloride (Sodium Chloride 0.9% 10 Ml Flush Syringe) 10 ml IV PRN PRN PRN Reason: LINE FLUSH Physical Examination Vital signs: Vital Signs BP Pulse Ox 84/35 100 10/02/20 10:35 10/02/20 10:35 Results - Laboratory Findings CBC and BMP: 10/02/20 23:55 10/03/20 09:01 Abnormal lab findings: Abnormal Labs 10/02/20 10/02/20 10/02/20 10:35 10:44 10:44 WBC 42.4 H* RBC 3.60 L Hct 46.6 H MCV 130 H MCHC 24 L RDW 17.7 H Seg Neuts % (Manual) 73.5 H Monocytes % (Manual) 9.0 H Seg Neutrophils # Man 31.2 H Lymphocytes # (Manual) 6.6 H Monocytes # (Manual) 3.8 H VBG pH Sodium 126 L Potassium 7.6 H* Chloride 75.9 L Carbon Dioxide < 2.0 L* BUN 42 H Creatinine 3.2 H Glucose 1603 H* POC Glucose > 600 H Lactic Acid Calcium Phosphorus Magnesium Alkaline Phosphatase 165 H Ammonia Total Creatine Kinase 357 H Albumin 3.8 L Salicylates Acetaminophen 10/02/20 10/02/20 10/02/20 10:44 10:44 10:44 WBC RBC Hct MCV MCHC RDW Seg Neuts % (Manual) Monocytes % (Manual) Seg Neutrophils # Man Lymphocytes # (Manual) Monocytes # (Manual) VBG pH Sodium Potassium Chloride Carbon Dioxide BUN Creatinine Glucose POC Glucose Lactic Acid 8.20 H* Calcium Phosphorus Magnesium Alkaline Phosphatase Ammonia 97.0 H Total Creatine Kinase Albumin Salicylates < 0.3 L Acetaminophen 10/02/20 10/02/20 10/02/20 10:44 10:44 12:14 WBC RBC Hct MCV MCHC RDW Seg Neuts % (Manual) Monocytes % (Manual) Seg Neutrophils # Man Lymphocytes # (Manual) Monocytes # (Manual) VBG pH 6.867 L* Sodium Potassium Chloride Carbon Dioxide BUN Creatinine Glucose POC Glucose Lactic Acid 7.70 H* Calcium Phosphorus Magnesium Alkaline Phosphatase Ammonia Total Creatine Kinase Albumin Salicylates Acetaminophen 5.0 L 10/02/20 10/02/20 10/02/20 12:35 12:35 13:55 WBC RBC Hct MCV MCHC RDW Seg Neuts % (Manual) Monocytes % (Manual) Seg Neutrophils # Man Lymphocytes # (Manual) Monocytes # (Manual) VBG pH Sodium 128 L Potassium 7.5 H* Chloride 81.1 L Carbon Dioxide 3 L* BUN 42 H Creatinine 3.4 H Glucose 1556 H* POC Glucose Lactic Acid 7.70 H* Calcium 7.7 L Phosphorus 16.10 H Magnesium 3.50 H Alkaline Phosphatase Ammonia Total Creatine Kinase Albumin Salicylates Acetaminophen 10/02/20 10/02/20 13:55 13:55 WBC RBC Hct MCV MCHC RDW Seg Neuts % (Manual) Monocytes % (Manual) Seg Neutrophils # Man Lymphocytes # (Manual) Monocytes # (Manual) VBG pH Sodium 134 L Potassium 7.6 H* Chloride 90.3 L Carbon Dioxide < 2.0 L* BUN 41 H Creatinine 3.1 H Glucose 1445 H* POC Glucose Lactic Acid Calcium 7.3 L Phosphorus 14.50 H Magnesium 3.20 H Alkaline Phosphatase Ammonia Total Creatine Kinase Albumin Salicylates Acetaminophen
[2020-10-02] MEDS ORDERED: NORepinephrine/NS 8 MG-250 ML 8 MG/250 ML INFUS..BTL IV SCH (15:00)
[2020-10-02 16:35] LABS: Calcium 7.6 mg/dL (8.4-10.2)
--- NOTE | 2020-10-02 17:46 | Consultation ---
History of Present Illness - Reason for Consult Consult date: 10/02/20 acute renal failure, hyperkalemia - History of Present Illness The patient is a 20 YO female with history significant for Type 1 DM, Seizure Disorder, Bipolar Disorder and Suicide Attempt in 2016 who presented to PSYCHIATRIC ED 10/02 for evaluation of AMS. Patient was confused and there was no family member at the bedside. The mother found patient unresponsive at home. Per mother the patient has been taking ecstasy. EMS was notified and the patient was transported to the ED for further evaluation. In the ED patient was found to have DKA, complicated by metabolic encephalopathy and acute kidney injury. Initial BP was 80s/30s. The patient received IV fluid bolus, started on Insulin drip per protocol and was admitted to ICU. Labs significant for wbc 42, Glucose 1603, K 7.6, bicarb <2, Creat 3.2, BUN 42 and Lactic acid 8.2. Nephrology was consulted for further evaluation and treatment of COLT. Past History Past Medical History: diabetes, seizures, other (See HPI) Past Surgical History: No surgical history, Other (Reviewed) Social history: single, other (Polysubstance abuse) Family history: hypertension Medications and Allergies Allergies Allergy/AdvReac Type Severity Reaction Status Date / Time azithromycin [From Zithromax] Allergy Rash Verified 08/24/13 07:30 Home Medications Medication Instructions Recorded Confirmed Last Taken Type levETIRAcetam [Keppra TAB] 500 mg PO BID #60 tablet 06/17/16 Unknown Rx Acetaminophen/Codeine [Tylenol 1 tab PO Q6H PRN #20 tab 11/28/16 Unknown Rx /Codeine # 3 tab] Amoxicillin/K Clav Tab [Augmentin 1 tab PO Q12HR #20 tab 11/28/16 Unknown Rx 875 mg] Neomy/Polymyx B/Hc (Otic) Soln 4 drops .ROUTE TID #10 ml 11/28/16 Unknown Rx [Cortisporin (Otic) Soln] Ondansetron [Zofran Odt] 4 mg PO Q8HR PRN #12 tab.rapdis 04/21/20 Unknown Rx Active Meds: Active Medications Enoxaparin Sodium (Enoxaparin 30 Mg/0.3 Ml Inj) 30 mg SUB-Q QDAY CLARE; Protocol Sodium Bicarbonate 150 meq/ (Sterile Water) 1,150 mls @ 100 mls/hr IV DIRECT CLARE Last Admin: 10/02/20 12:47 Dose: 100 mls/hr Documented by: Insulin Human Regular 100 (units/ Sodium Chloride) 100 mls @ 1 mls/hr IV TITR CLARE; Protocol Last Titration: 10/02/20 17:01 Dose: 11 units/hr, 11 mls/hr Documented by: Sodium Chloride (Nacl 0.9% 1000 Ml) 1,000 mls @ 150 mls/hr IV DIRECT CLARE NORepinephrine/NS 8 MG-250 ML (Norepinephrine/Ns 8 Mg-250 Ml (Double Conc)) 8 mg in 250 mls @ 3.75 mls/hr IV TITRATE CLARE; Protocol Levetiracetam (Levetiracetam 500 Mg Tab) 500 mg PO BID CLARE Sodium Chloride (Sodium Chloride 0.9% 10 Ml Flush Syringe) 10 ml IV BID CLARE Sodium Chloride (Sodium Chloride 0.9% 10 Ml Flush Syringe) 10 ml IV PRN PRN PRN Reason: LINE FLUSH Review of Systems ROS unobtainable: due to mental status Exam - Vital Signs Vital signs: Vital Signs BP Pulse Ox 84/35 100 10/02/20 10:35 10/02/20 10:35 Results - Lab Results 10/02/20 10:44 10/02/20 18:40 Most recent lab results Calcium 7.6 mg/dL (8.4-10.2) L 10/02/20 16:00 Phosphorus 14.50 mg/dL (2.5-4.5) H 10/02/20 13:55 Magnesium 3.20 mg/dL (1.7-2.3) H 10/02/20 13:55 Assessment and Plan 1. Acute kidney injury: Vasomotor COLT in the setting of hypotension and volume depletion. ATN likely. CT abdomen negative for hydro. Urine studies ordered. S/p IV fluid boluses. Continue IV fluids. Monitor renal function. Non-oliguric. Pt has neves catheter. Avoid nephrotoxic agents. Meds dosage based on GFR. Monitor for [employer]ING [employer]ANT [employer]PER[employer] needs. 2. FEN: Hyperkalemia, associated with very high blood sugar, on Insulin drip, monitor. No significant EKG changes. Severe anion-gap metabolic acidosis, 2/2 DKA/COLT/Lactic acidosis, monitor. On Bicarbonate drip. Monitor lytes and volume status. 3. DKA: On Insulin drip. 4. Acute metabolic encephalopathy: CT head brain negative. Followed by Neuro. 5. Leukocytosis. 6. Seizure disorder: Neuro check, seizure precautions, aspiration precautions, continue antiepileptic therapy. 7. Suspected drug OD. Subjective: Patient was seen and examined at the bedside. RN at the bedside. Examination: General appearance: well-developed, agitated, on restrains HEENT: CYNDI, atraumatic Neck: trachea midline Respiratory: Ctab Heart: S1S2, tachycardia, no murmur Abdomen: soft, bowel sounds heard, NT, ND Integumentary: no obvious rash Neurologic: lethargic, very confused, not following any command Ext: no edema noted : Neves catheter
[2020-10-02] MEDS: CALCIUM CHLORIDE 1,000 MG/10 ML SYRINGE IV ONE ×2 (18:26→18:33)
[2020-10-02 19:09] LABS: Creatinine,Urine 27.5 mg/dL (0.1-20.0)
[2020-10-02 19:15] LABS: Amphetamine Screen,Urine PRESUMPTIVE NEGATIVE; Benzodiazepines Screen,Urine PRESUMPTIVE NEGATIVE; Cannabinoid Screen,Urine PRESUMPTIVE NEGATIVE; Cocaine Screen,Urine PRESUMPTIVE NEGATIVE; Methadone Screen,Urine PRESUMPTIVE NEGATIVE; Opiate Screen,Urine PRESUMPTIVE NEGATIVE
[2020-10-02 19:18] LABS: Calcium 8.9 mg/dL (8.4-10.2)
[2020-10-02] MEDS: levETIRAcetam 500 MG TAB PO SCH (21:10)
[2020-10-02 22:01] LABS: Bilirubin,Urine NEG (Negative); Blood,Urine MOD (Negative); Color,Urine Straw (Yellow); Mucus,Urine FEW /HPF; Urobilinogen,Urine < 2.0 mg/dL (<2.0)
[2020-10-02 23:25] LABS: Calcium 9.2 mg/dL (8.4-10.2)
[2020-10-03 00:10] LABS: Hematocrit 29.7 % (30.3-42.9); Hemoglobin 10.3 gm/dl (10.1-14.3); Mean Corpuscular HGB Conc 35 % (30-34); Mean Corpuscular Volume 91 fl (79-97); Platelet Count 251 K/mm3 (140-440); Red Blood Count 3.26 M/mm3 (3.65-5.03); Red Cell Distribution Width 15.1 % (13.2-15.2)
[2020-10-03] MEDS: D5W/0.45% NACL/KCL 20 MEQ 20 MEQ/1,000 ML BAG IV SCH ×2 (01:06→09:21)
[2020-10-03] MEDS: SODIUM BICARBONATE 150 MEQ in WATER FOR INJECTION (PF) 1,000 ML IV SCH (06:07)
[2020-10-03] MEDS: levETIRAcetam 500 MG TAB PO SCH ×2 (09:20→22:07)
[2020-10-03] MEDS: ENOXAPARIN 30 MG/0.3 ML INJ SUB-Q SCH (09:21)
[2020-10-03 10:30] LABS: Calcium 8.4 mg/dL (8.4-10.2)
[2020-10-03] MEDS: INSULIN REGULAR, HUMAN 100 UNITS in SODIUM CHLORIDE 0.9% 99 ML IV SCH (10:56)
--- NOTE | 2020-10-03 14:11 | Progress Note ---
Assessment and Plan 1. Acute kidney injury: Vasomotor COLT in the setting of hypotension and volume depletion. ATN likely. CT abdomen negative for hydro. Urine studies ordered. S/p IV fluid boluses. Continue IV fluids. Pt has neves catheter. Non-oliguric. Monitor renal function. Creatinine level is improving. Avoid nephrotoxic agents. Meds dosage based on GFR. 2. FEN: Hyperkalemia, improved, monitor. Severe anion-gap metabolic acidosis, 2/2 DKA/COLT/Lactic acidosis, improved, monitor. Hypernatremia, on hypotonic IV fluids. Monitor lytes and volume status. 3. DKA: On Insulin drip. 4. Acute metabolic encephalopathy: CT head brain negative. 5. Leukocytosis. 6. Seizure disorder: Neuro check, seizure precautions, aspiration precautions, continue antiepileptic therapy. 7. Suspected drug OD. Subjective: Patient was seen and examined at the bedside. Examination: General appearance: well-developed, no distress, on restrains HEENT: CYNDI, atraumatic Neck: trachea midline Respiratory: Ctab Heart: S1S2, tachycardia, no murmur Abdomen: soft, bowel sounds heard, NT, ND Integumentary: no obvious rash Neurologic: lethargic, some confusion noted, not following any command Ext: no edema noted : Neves catheter Subjective Date of service: 10/03/20 Objective - Vital Signs Vital signs: Vital Signs - 12hr 10/03/20 10/03/20 10/03/20 03:00 04:00 05:00 Temperature 98.1 F Pulse Rate 130 H 127 H Respiratory 32 H 29 H 18 Rate Blood Pressure 124/76 125/73 111/62 O2 Sat by Pulse 100 100 100 Oximetry 10/03/20 10/03/20 10/03/20 06:00 07:00 08:00 Temperature 98.1 F Pulse Rate 124 H 126 H 103 H Respiratory 22 20 19 Rate Blood Pressure 116/68 113/74 124/84 O2 Sat by Pulse 100 100 99 Oximetry 10/03/20 10/03/20 09:01 11:54 Temperature 98.4 F Pulse Rate 126 H Respiratory 16 Rate Blood Pressure 131/80 O2 Sat by Pulse 100 Oximetry - Lab 10/02/20 23:55 10/03/20 09:01 Most recent lab results Calcium 8.4 mg/dL (8.4-10.2) 10/03/20 09:01 Phosphorus 3.40 mg/dL (2.5-4.5) D 10/03/20 09:01 Magnesium 3.20 mg/dL (1.7-2.3) H 10/02/20 13:55 Urine Creatinine 27.5 mg/dL (0.1-20.0) H 10/02/20 17:02 Urine Sodium 43 mmol/L 10/02/20 17:02 Medications & Allergies - Medications Allergies/Adverse Reactions: Allergies azithromycin [From Zithromax] Allergy (Verified 08/24/13 07:30) Rash Home Medications: Home Medications Medication Instructions Recorded Confirmed Last Taken Type levETIRAcetam [Keppra TAB] 500 mg PO BID #60 tablet 06/17/16 Unknown Rx Acetaminophen/Codeine [Tylenol 1 tab PO Q6H PRN #20 tab 11/28/16 Unknown Rx /Codeine # 3 tab] Amoxicillin/K Clav Tab [Augmentin 1 tab PO Q12HR #20 tab 11/28/16 Unknown Rx 875 mg] Neomy/Polymyx B/Hc (Otic) Soln 4 drops .ROUTE TID #10 ml 11/28/16 Unknown Rx [Cortisporin (Otic) Soln] Ondansetron [Zofran Odt] 4 mg PO Q8HR PRN #12 tab.rapdis 04/21/20 Unknown Rx Active Medications: Generic Name Dose Route Start Last Admin Trade Name Freq PRN Reason Stop Dose Admin Enoxaparin Sodium 30 mg 10/03/20 10:00 10/03/20 09:21 Enoxaparin 30 Mg/0.3 Ml Inj SUB-Q 30 mg QDAY CLARE Administration Protocol Famotidine 20 mg 10/03/20 13:00 Famotidine 20 Mg/2 Ml Inj IV QDAY CLARE Insulin Human Regular 100 100 mls @ 1 mls/hr 10/02/20 14:00 10/03/20 13:36 units/ Sodium Chloride IV 8 units/hr TITR CLARE 8 mls/hr Titration Protocol 1 UNITS/HR Sodium Chloride 1,000 mls @ 150 mls/hr 10/02/20 13:30 10/02/20 20:20 Nacl 0.9% 1000 Ml IV 150 mls/hr DIRECT CLARE Administration NORepinephrine/NS 8 MG-250 ML 8 mg in 250 mls @ 3.75 mls/hr 10/02/20 15:00 Norepinephrine/Ns 8 Mg-250 Ml (Double Conc) IV TITRATE CLARE Protocol 2 MCG/MIN Potassium Chloride/Dextrose/Sod Cl 20 meq in 1,000 mls @ 125 mls/hr 10/02/20 23:45 10/03/20 09:21 D5w/0.45% Nacl/Kcl 20 Meq IV 125 mls/hr DIRECT CLARE Administration Insulin Human NPH 15 unit 10/03/20 17:00 Insulin Nph, Human 100 Unit/1 Ml SUB-Q BIDDIAB CLARE Insulin Human Regular 0 units 10/03/20 16:30 Insulin Regular, Human 100 Units/1 Ml SUB-Q ACHS CLARE Protocol Levetiracetam 500 mg 10/02/20 22:00 10/03/20 09:20 Levetiracetam 500 Mg Tab PO 500 mg BID CLARE Administration Sodium Chloride 10 ml 10/02/20 22:00 10/03/20 09:22 Sodium Chloride 0.9% 10 Ml Flush Syringe IV 10 ml BID CLARE Administration Sodium Chloride 10 ml 10/02/20 14:00 Sodium Chloride 0.9% 10 Ml Flush Syringe IV PRN PRN LINE FLUSH
[2020-10-03] MEDS: FAMOTIDINE 20 MG/2 ML INJ IV SCH (14:34)
[2020-10-03 14:57] LABS: Calcium 8.2 mg/dL (8.4-10.2)
--- NOTE | 2020-10-03 15:52 | Progress Note ---
Assessment and Plan This is a 20-year-old female with history of diabetes mellitus type 1 seizure disorder bipolar disorder suicidal attempt in 2017 brought to the ER by EMS after being found unresponsive by the family member. On admission patient noted to have white count of 42,000, venous blood pH 6.8, sodium 126, creatinine 3.2, CO2 <2, lactic acid 8.2, blood glucose of 1603, blood in urine with positive ketones. Patient was placed on bicarbonate drip and insulin drip and admitted to ICU with DKA protocol. A/P: -- DKA (diabetic ketoacidosis) On admission blood glucose was 1603 with CO2 less than 2, lactic acid 8.2 and venous pH 6.8 Patient admitted with DKA protocol: Insulin drip along with bicarbonate drip Anion gap has resolved, serum CO2 and blood glucose levels significantly improved. We will stop insulin and bicarbonate drip Start on consistent carb diet SSI, long-acting insulin Check A1c -- Seizure disorder Neuro check, seizure protocol, aspiration precautions, continue antiepileptic therapy with IV Keppra twice daily -- Metabolic encephalopathy Likely due to severe DKA CT head, neuro check, seizure precautions, aspiration precautions, supportive care. -- Acute kidney injury (COLT) with acute tubular necrosis (ATN) IV fluid resuscitation therapy, monitor urine output every shift, repeat BMP in a.m. to monitor serum creatinine as well as GFR. Nephrology following --History of bipolar disorder We will consult psychiatry --Hyponatremia likely due to hyperglycemia, resolved --Hypernatremia, will place on hypotonic fluid, monitor BMP -- DVT prophylaxis SCD to bilateral lower extremities while in bed, prophylactic anticoagulation --Full CODE STATUS Daily clinical course: 10/03: Patient remains lethargic, anion gap closed, will start on consistent carb diet as tolerated, will stop insulin drip and bicarbonate drip. Will place on SSI and long-acting insulin. Check A1c. Creatinine today 1.4 with sodium 147. Change fluid to half-normal saline. Appreciate nephrology and critical care recommendation. Patient's Covid test is negative. Will transfer the patient to telemetry. We will also consult psychiatry. Subjective Date of service: 10/03/20 Interval history: Patient seen and examined. Medical records and medication list reviewed. No acute event overnight noted by the RN. Patient does not communicate and does not make any eye contact Discussed plan of care at bedside with patient's RN. Objective - Exam Narrative Exam: GENERAL: well-developed and well-nourished young -Citizen Of [place] lying on bed appeared to be in no discomfort. HEENT: Normocephalic. Atraumatic. No conjunctival congestion or icterus. Pat ient has moist mucous membranes. NECK: Supple. Trachea midline. CHEST/LUNGS: Clear to auscultated bilaterally, breathing nonlabored. No wheezes crackles or rhonchi. HEART/CARDIOVASCULAR: Regular in rate and rhythm. S1 and S2 positive. ABDOMEN: Abdomen is soft, nontender. Patient has normal bowel sounds. SKIN: There is no rash. Warm and dry. NEURO: Does not follow any command and noncommunicative MUSCULOSKELETAL: No joint effusion or tenderness. EXTRIMITY: No edema, no cyanosis or clubbing. PSYCH: Does not make any eye contact - Constitutional Vitals: Vital Signs - 12hr 10/03/20 10/03/20 10/03/20 04:00 05:00 06:00 Temperature 98.1 F Pulse Rate 130 H 127 H 124 H Respiratory 29 H 18 22 Rate Blood Pressure 125/73 111/62 116/68 O2 Sat by Pulse 100 100 100 Oximetry 10/03/20 10/03/20 10/03/20 07:00 08:00 09:01 Temperature 98.1 F Pulse Rate 126 H 103 H 126 H Respiratory 20 19 16 Rate Blood Pressure 113/74 124/84 131/80 O2 Sat by Pulse 100 99 100 Oximetry 10/03/20 11:54 Temperature 98.4 F Pulse Rate Respiratory Rate Blood Pressure O2 Sat by Pulse Oximetry - Labs CBC & Chem 7: 10/02/20 23:55 10/03/20 13:41 Labs: Abnormal lab results 10/02/20 10/02/20 10/02/20 Range/Units 15:34 16:00 16:50 WBC (4.5-11.0) K/mm3 RBC (3.65-5.03) M/mm3 Hct (30.3-42.9) % MCHC (30-34) % Sodium 129 L (137-145) mmol/L Potassium 8.3 H* (3.6-5.0) mmol/L Chloride 84.8 L (98-107) mmol/L Carbon Dioxide 2 L* (22-30) mmol/L BUN 43 H (7-17) mg/dL Creatinine 3.3 H (0.6-1.2) mg/dL Glucose 1434 H* (65-100) mg/dL POC Glucose > 600 H > 600 H (70-105) mg/dL Calcium 7.6 L (8.4-10.2) mg/dL Urine Creatinine (0.1-20.0) mg/dL 10/02/20 10/02/20 10/02/20 Range/Units 17:02 18:07 18:40 WBC (4.5-11.0) K/mm3 RBC (3.65-5.03) M/mm3 Hct (30.3-42.9) % MCHC (30-34) % Sodium (137-145) mmol/L Potassium (3.6-5.0) mmol/L Chloride 93.1 L (98-107) mmol/L Carbon Dioxide 6 L* (22-30) mmol/L BUN 40 H (7-17) mg/dL Creatinine 2.8 H (0.6-1.2) mg/dL Glucose 970 H* (65-100) mg/dL POC Glucose > 600 H (70-105) mg/dL Calcium (8.4-10.2) mg/dL Urine Creatinine 27.5 H (0.1-20.0) mg/dL 10/02/20 10/02/20 10/02/20 Range/Units 18:47 19:26 20:00 WBC (4.5-11.0) K/mm3 RBC (3.65-5.03) M/mm3 Hct (30.3-42.9) % MCHC (30-34) % Sodium (137-145) mmol/L Potassium (3.6-5.0) mmol/L Chloride (98-107) mmol/L Carbon Dioxide (22-30) mmol/L BUN (7-17) mg/dL Creatinine (0.6-1.2) mg/dL Glucose (65-100) mg/dL POC Glucose > 600 H > 600 H > 600 H (70-105) mg/dL Calcium (8.4-10.2) mg/dL Urine Creatinine (0.1-20.0) mg/dL 10/02/20 10/02/20 10/02/20 Range/Units 20:09 21:01 22:08 WBC (4.5-11.0) K/mm3 RBC (3.65-5.03) M/mm3 Hct (30.3-42.9) % MCHC (30-34) % Sodium (137-145) mmol/L Potassium (3.6-5.0) mmol/L Chloride (98-107) mmol/L Carbon Dioxide (22-30) mmol/L BUN (7-17) mg/dL Creatinine (0.6-1.2) mg/dL Glucose 685 H* (65-100) mg/dL POC Glucose > 600 H 485 H (70-105) mg/dL Calcium (8.4-10.2) mg/dL Urine Creatinine (0.1-20.0) mg/dL 10/02/20 10/02/20 10/02/20 Range/Units 22:53 22:59 23:55 WBC 29.4 H (4.5-11.0) K/mm3 RBC 3.26 L (3.65-5.03) M/mm3 Hct 29.7 L D (30.3-42.9) % MCHC 35 H (30-34) % Sodium 147 H (137-145) mmol/L Potassium (3.6-5.0) mmol/L Chloride (98-107) mmol/L Carbon Dioxide 20 L D (22-30) mmol/L BUN 36 H (7-17) mg/dL Creatinine 2.2 H (0.6-1.2) mg/dL Glucose 381 H (65-100) mg/dL POC Glucose 410 H (70-105) mg/dL Calcium (8.4-10.2) mg/dL Urine Creatinine (0.1-20.0) mg/dL 10/03/20 10/03/20 10/03/20 Range/Units 00:01 00:59 01:58 WBC (4.5-11.0) K/mm3 RBC (3.65-5.03) M/mm3 Hct (30.3-42.9) % MCHC (30-34) % Sodium (137-145) mmol/L Potassium (3.6-5.0) mmol/L Chloride (98-107) mmol/L Carbon Dioxide (22-30) mmol/L BUN (7-17) mg/dL Creatinine (0.6-1.2) mg/dL Glucose (65-100) mg/dL POC Glucose 310 H 221 H 223 H (70-105) mg/dL Calcium (8.4-10.2) mg/dL Urine Creatinine (0.1-20.0) mg/dL 10/03/20 10/03/20 10/03/20 Range/Units 03:01 03:59 05:05 WBC (4.5-11.0) K/mm3 RBC (3.65-5.03) M/mm3 Hct (30.3-42.9) % MCHC (30-34) % Sodium (137-145) mmol/L Potassium (3.6-5.0) mmol/L Chloride (98-107) mmol/L Carbon Dioxide (22-30) mmol/L BUN (7-17) mg/dL Creatinine (0.6-1.2) mg/dL Glucose (65-100) mg/dL POC Glucose 171 H 154 H 145 H (70-105) mg/dL Calcium (8.4-10.2) mg/dL Urine Creatinine (0.1-20.0) mg/dL 10/03/20 10/03/20 10/03/20 Range/Units 06:04 06:55 08:00 WBC (4.5-11.0) K/mm3 RBC (3.65-5.03) M/mm3 Hct (30.3-42.9) % MCHC (30-34) % Sodium (137-145) mmol/L Potassium (3.6-5.0) mmol/L Chloride (98-107) mmol/L Carbon Dioxide (22-30) mmol/L BUN (7-17) mg/dL Creatinine (0.6-1.2) mg/dL Glucose (65-100) mg/dL POC Glucose 136 H 117 H 111 H (70-105) mg/dL Calcium (8.4-10.2) mg/dL Urine Creatinine (0.1-20.0) mg/dL 10/03/20 10/03/20 10/03/20 Range/Units 08:52 09:01 09:55 WBC (4.5-11.0) K/mm3 RBC (3.65-5.03) M/mm3 Hct (30.3-42.9) % MCHC (30-34) % Sodium 152 H (137-145) mmol/L Potassium (3.6-5.0) mmol/L Chloride 109.2 H (98-107) mmol/L Carbon Dioxide (22-30) mmol/L BUN 30 H (7-17) mg/dL Creatinine 1.5 H (0.6-1.2) mg/dL Glucose (65-100) mg/dL POC Glucose 127 H 114 H (70-105) mg/dL Calcium (8.4-10.2) mg/dL Urine Creatinine (0.1-20.0) mg/dL 10/03/20 10/03/20 10/03/20 Range/Units 10:54 11:49 13:07 WBC (4.5-11.0) K/mm3 RBC (3.65-5.03) M/mm3 Hct (30.3-42.9) % MCHC (30-34) % Sodium (137-145) mmol/L Potassium (3.6-5.0) mmol/L Chloride (98-107) mmol/L Carbon Dioxide (22-30) mmol/L BUN (7-17) mg/dL Creatinine (0.6-1.2) mg/dL Glucose (65-100) mg/dL POC Glucose 113 H 130 H 250 H (70-105) mg/dL Calcium (8.4-10.2) mg/dL Urine Creatinine (0.1-20.0) mg/dL 10/03/20 10/03/20 Range/Units 13:41 14:14 WBC (4.5-11.0) K/mm3 RBC (3.65-5.03) M/mm3 Hct (30.3-42.9) % MCHC (30-34) % Sodium 147 H (137-145) mmol/L Potassium (3.6-5.0) mmol/L Chloride (98-107) mmol/L Carbon Dioxide (22-30) mmol/L BUN 26 H (7-17) mg/dL Creatinine 1.4 H (0.6-1.2) mg/dL Glucose 292 H (65-100) mg/dL POC Glucose 294 H (70-105) mg/dL Calcium 8.2 L (8.4-10.2) mg/dL Urine Creatinine (0.1-20.0) mg/dL
--- NOTE | 2020-10-03 16:08 | Progress Note ---
Assessment and Plan DKA Seizure disorder Metabolic encephalopathy Acute kidney injury bipolar disorder Hyponatremia Hypernatremia - Psych evaluation is appropriate - continue IV insulin per DKA protocol - prn supplemental oxygen to keep O2 sats > 90% - prn bronchodilators with pulm hygiene per RT - avoid nephrotoxins, renally dose all medications - mobility protocols to prevent pressure ulcers - PT/OT as tolerated - Wound care per RN/WCT - tobacco abstinence strongly counseled at the bedside - GI & VTE prophylaxis - Flu & pneumovax per protocol - prn analgesia per pain score - continue other care per attending / other consultants ... re-evaluate in am & prn I have spent ( >35 ) minutes with the patient w/ >50% of the time spent counseling and/or coordinating care for this patient. Counseling topics and/or how time was spent coordinating patient's care is outlined in the impression and plan above. Subjective Date of service: 10/03/20 Principal diagnosis: DKA; Seizures; Metabolic encephalopathy; COLT; bipolar disorder Interval history: Patient is seen today for: DKA; Seizure disorder; Metabolic encephalopathy; Acute kidney injury; bipolar disorder Seen and examined at bedside; 24hour events reviewed; nursing and respiratory care staff consulted; no adverse overnight events reported to me; restring peacefully in bed; a little more ccoherent; remains on IV insulin drip @ 8 units/hr; denies suicidal ideations to me Objective Vital Signs - 12hr 10/03/20 10/03/20 10/03/20 05:00 06:00 07:00 Temperature 98.1 F Pulse Rate 127 H 124 H 126 H Respiratory 18 22 20 Rate Blood Pressure 111/62 116/68 113/74 O2 Sat by Pulse 100 100 100 Oximetry 10/03/20 10/03/20 10/03/20 08:00 09:01 11:54 Temperature 98.4 F Pulse Rate 103 H 126 H Respiratory 19 16 Rate Blood Pressure 124/84 131/80 O2 Sat by Pulse 99 100 Oximetry Constitutional: no acute distress Eyes: non-icteric ENT: oropharynx moist Neck: supple, no lymphadenopathy, no JVD Effort: normal Ascultation: Bilateral: clear Percussion: Bilateral: not dull Cardiovascular: regular rate and rhythm Gastrointestinal: normoactive bowel sounds, soft, non-tender, non-distended Integumentary: normal Extremities: no cyanosis, no edema, pulses normal, no ischemia or petechiae Neurologic: non-focal exam, pupils equal and round, CN II-XII normal, motor strength normal and Psychiatric: other (flat affect) CBC and BMP: 10/04/20 04:58 10/04/20 04:58 Abnormal lab findings: Abnormal Labs 10/02/20 10/02/20 10/02/20 10:35 10:44 10:44 WBC 42.4 H* RBC 3.60 L Hct 46.6 H MCV 130 H MCHC 24 L RDW 17.7 H Seg Neuts % (Manual) 73.5 H Monocytes % (Manual) 9.0 H Seg Neutrophils # Man 31.2 H Lymphocytes # (Manual) 6.6 H Monocytes # (Manual) 3.8 H VBG pH Sodium 126 L Potassium 7.6 H* Chloride 75.9 L Carbon Dioxide < 2.0 L* BUN 42 H Creatinine 3.2 H Glucose 1603 H* POC Glucose > 600 H Lactic Acid Calcium Phosphorus Magnesium Alkaline Phosphatase 165 H Ammonia Total Creatine Kinase 357 H Albumin 3.8 L Urine Creatinine Salicylates Acetaminophen 10/02/20 10/02/20 10/02/20 10:44 10:44 10:44 WBC RBC Hct MCV MCHC RDW Seg Neuts % (Manual) Monocytes % (Manual) Seg Neutrophils # Man Lymphocytes # (Manual) Monocytes # (Manual) VBG pH Sodium Potassium Chloride Carbon Dioxide BUN Creatinine Glucose POC Glucose Lactic Acid 8.20 H* Calcium Phosphorus Magnesium Alkaline Phosphatase Ammonia 97.0 H Total Creatine Kinase Albumin Urine Creatinine Salicylates < 0.3 L Acetaminophen 10/02/20 10/02/20 10/02/20 10:44 10:44 12:14 WBC RBC Hct MCV MCHC RDW Seg Neuts % (Manual) Monocytes % (Manual) Seg Neutrophils # Man Lymphocytes # (Manual) Monocytes # (Manual) VBG pH 6.867 L* Sodium Potassium Chloride Carbon Dioxide BUN Creatinine Glucose POC Glucose Lactic Acid 7.70 H* Calcium Phosphorus Magnesium Alkaline Phosphatase Ammonia Total Creatine Kinase Albumin Urine Creatinine Salicylates Acetaminophen 5.0 L 10/02/20 10/02/20 10/02/20 12:35 12:35 13:55 WBC RBC Hct MCV MCHC RDW Seg Neuts % (Manual) Monocytes % (Manual) Seg Neutrophils # Man Lymphocytes # (Manual) Monocytes # (Manual) VBG pH Sodium 128 L Potassium 7.5 H* Chloride 81.1 L Carbon Dioxide 3 L* BUN 42 H Creatinine 3.4 H Glucose 1556 H* POC Glucose Lactic Acid 7.70 H* Calcium 7.7 L Phosphorus 16.10 H Magnesium 3.50 H Alkaline Phosphatase Ammonia Total Creatine Kinase Albumin Urine Creatinine Salicylates Acetaminophen 10/02/20 10/02/20 10/02/20 13:55 13:55 15:34 WBC RBC Hct MCV MCHC RDW Seg Neuts % (Manual) Monocytes % (Manual) Seg Neutrophils # Man Lymphocytes # (Manual) Monocytes # (Manual) VBG pH Sodium 134 L Potassium 7.6 H* Chloride 90.3 L Carbon Dioxide < 2.0 L* BUN 41 H Creatinine 3.1 H Glucose 1445 H* POC Glucose > 600 H Lactic Acid Calcium 7.3 L Phosphorus 14.50 H Magnesium 3.20 H Alkaline Phosphatase Ammonia Total Creatine Kinase Albumin Urine Creatinine Salicylates Acetaminophen 10/02/20 10/02/20 10/02/20 16:00 16:50 17:02 WBC RBC Hct MCV MCHC RDW Seg Neuts % (Manual) Monocytes % (Manual) Seg Neutrophils # Man Lymphocytes # (Manual) Monocytes # (Manual) VBG pH Sodium 129 L Potassium 8.3 H* Chloride 84.8 L Carbon Dioxide 2 L* BUN 43 H Creatinine 3.3 H Glucose 1434 H* POC Glucose > 600 H Lactic Acid Calcium 7.6 L Phosphorus Magnesium Alkaline Phosphatase Ammonia Total Creatine Kinase Albumin Urine Creatinine 27.5 H Salicylates Acetaminophen 10/02/20 10/02/20 10/02/20 18:07 18:40 18:47 WBC RBC Hct MCV MCHC RDW Seg Neuts % (Manual) Monocytes % (Manual) Seg Neutrophils # Man Lymphocytes # (Manual) Monocytes # (Manual) VBG pH Sodium Potassium Chloride 93.1 L Carbon Dioxide 6 L* BUN 40 H Creatinine 2.8 H Glucose 970 H* POC Glucose > 600 H > 600 H Lactic Acid Calcium Phosphorus Magnesium Alkaline Phosphatase Ammonia Total Creatine Kinase Albumin Urine Creatinine Salicylates Acetaminophen 10/02/20 10/02/20 10/02/20 19:26 20:00 20:09 WBC RBC Hct MCV MCHC RDW Seg Neuts % (Manual) Monocytes % (Manual) Seg Neutrophils # Man Lymphocytes # (Manual) Monocytes # (Manual) VBG pH Sodium Potassium Chloride Carbon Dioxide BUN Creatinine Glucose 685 H* POC Glucose > 600 H > 600 H Lactic Acid Calcium Phosphorus Magnesium Alkaline Phosphatase Ammonia Total Creatine Kinase Albumin Urine Creatinine Salicylates Acetaminophen 10/02/20 10/02/20 10/02/20 21:01 22:08 22:53 WBC RBC Hct MCV MCHC RDW Seg Neuts % (Manual) Monocytes % (Manual) Seg Neutrophils # Man Lymphocytes # (Manual) Monocytes # (Manual) VBG pH Sodium 147 H Potassium Chloride Carbon Dioxide 20 L D BUN 36 H Creatinine 2.2 H Glucose 381 H POC Glucose > 600 H 485 H Lactic Acid Calcium Phosphorus Magnesium Alkaline Phosphatase Ammonia Total Creatine Kinase Albumin Urine Creatinine Salicylates Acetaminophen 10/02/20 10/02/20 10/03/20 22:59 23:55 00:01 WBC 29.4 H RBC 3.26 L Hct 29.7 L D MCV MCHC 35 H RDW Seg Neuts % (Manual) Monocytes % (Manual) Seg Neutrophils # Man Lymphocytes # (Manual) Monocytes # (Manual) VBG pH Sodium Potassium Chloride Carbon Dioxide BUN Creatinine Glucose POC Glucose 410 H 310 H Lactic Acid Calcium Phosphorus Magnesium Alkaline Phosphatase Ammonia Total Creatine Kinase Albumin Urine Creatinine Salicylates Acetaminophen 10/03/20 10/03/20 10/03/20 00:59 01:58 03:01 WBC RBC Hct MCV MCHC RDW Seg Neuts % (Manual) Monocytes % (Manual) Seg Neutrophils # Man Lymphocytes # (Manual) Monocytes # (Manual) VBG pH Sodium Potassium Chloride Carbon Dioxide BUN Creatinine Glucose POC Glucose 221 H 223 H 171 H Lactic Acid Calcium Phosphorus Magnesium Alkaline Phosphatase Ammonia Total Creatine Kinase Albumin Urine Creatinine Salicylates Acetaminophen 10/03/20 10/03/20 10/03/20 03:59 05:05 06:04 WBC RBC Hct MCV MCHC RDW Seg Neuts % (Manual) Monocytes % (Manual) Seg Neutrophils # Man Lymphocytes # (Manual) Monocytes # (Manual) VBG pH Sodium Potassium Chloride Carbon Dioxide BUN Creatinine Glucose POC Glucose 154 H 145 H 136 H Lactic Acid Calcium Phosphorus Magnesium Alkaline Phosphatase Ammonia Total Creatine Kinase Albumin Urine Creatinine Salicylates Acetaminophen 10/03/20 10/03/20 10/03/20 06:55 08:00 08:52 WBC RBC Hct MCV MCHC RDW Seg Neuts % (Manual) Monocytes % (Manual) Seg Neutrophils # Man Lymphocytes # (Manual) Monocytes # (Manual) VBG pH Sodium Potassium Chloride Carbon Dioxide BUN Creatinine Glucose POC Glucose 117 H 111 H 127 H Lactic Acid Calcium Phosphorus Magnesium Alkaline Phosphatase Ammonia Total Creatine Kinase Albumin Urine Creatinine Salicylates Acetaminophen 10/03/20 10/03/20 10/03/20 09:01 09:55 10:54 WBC RBC Hct MCV MCHC RDW Seg Neuts % (Manual) Monocytes % (Manual) Seg Neutrophils # Man Lymphocytes # (Manual) Monocytes # (Manual) VBG pH Sodium 152 H Potassium Chloride 109.2 H Carbon Dioxide BUN 30 H Creatinine 1.5 H Glucose POC Glucose 114 H 113 H Lactic Acid Calcium Phosphorus Magnesium Alkaline Phosphatase Ammonia Total Creatine Kinase Albumin Urine Creatinine Salicylates Acetaminophen 10/03/20 10/03/20 10/03/20 11:49 13:07 13:41 WBC RBC Hct MCV MCHC RDW Seg Neuts % (Manual) Monocytes % (Manual) Seg Neutrophils # Man Lymphocytes # (Manual) Monocytes # (Manual) VBG pH Sodium 147 H Potassium Chloride Carbon Dioxide BUN 26 H Creatinine 1.4 H Glucose 292 H POC Glucose 130 H 250 H Lactic Acid Calcium 8.2 L Phosphorus Magnesium Alkaline Phosphatase Ammonia Total Creatine Kinase Albumin Urine Creatinine Salicylates Acetaminophen 10/03/20 14:14 WBC RBC Hct MCV MCHC RDW Seg Neuts % (Manual) Monocytes % (Manual) Seg Neutrophils # Man Lymphocytes # (Manual) Monocytes # (Manual) VBG pH Sodium Potassium Chloride Carbon Dioxide BUN Creatinine Glucose POC Glucose 294 H Lactic Acid Calcium Phosphorus Magnesium Alkaline Phosphatase Ammonia Total Creatine Kinase Albumin Urine Creatinine Salicylates Acetaminophen Allied health notes reviewed: nursing
[2020-10-03] MEDS: INSULIN NPH, HUMAN 100 UNIT/1 ML SUB-Q SCH (17:20)
[2020-10-03] MEDS: INSULIN REGULAR, HUMAN 100 UNITS/1 ML SUB-Q SCH ×2 (17:20→22:08)
[2020-10-03] MEDS: SODIUM CHLORIDE 0.45% 1000 ML 1,000 ML IV SCH ×2 (17:21→20:14)
[2020-10-03] MEDS ORDERED: cefTRIAXone/NS 2 GM/100 ML 2 GM/100 ML BAG IV SCH (20:00)
[2020-10-03] MEDS ORDERED: cefTRIAXone/NS 1 GM/50 ML 1 GM/50 ML BAG IV SCH (20:00)
--- NOTE | 2020-10-04 02:01 | Consultation ---
DATE OF CONSULTATION: 10/02/2020 PULMONARY CRITICAL CARE CONSULT NOTE CONSULTING PHYSICIAN: Dr. Bourne. REASON FOR CONSULTATION: 1. Diabetic ketoacidosis. 2. Severe metabolic acidosis. 3. Acute encephalopathy. CHIEF COMPLAINT AND HISTORY OF PRESENT ILLNESS: The patient is a now 20-year-old female with past medical history significant amongst other things for a diagnosis of diabetes that is insulin-dependent. She was brought in to the Emergency Department from her home unresponsive. According to her significant other she had been alert around 6:30 a.m. Her mother found her unresponsive prior to presentation. Accu-Cheks revealed a critically high blood sugar, in the emergency room, she was initially hypertensive and then became hypotensive. She was evaluated. There was no acute need for intubation. Reportedly, she had been taking a street drug called beans, which appears to be Ecstasy. She is also reported to have a history of bipolar disorder. She was stabilized in the emergency room, had a discussion with emergency room physician. Because of her severe metabolic acidosis she was also started on a bicarbonate drip and we are asked to assist with management. When I stopped by to see her, she was resting in bed, still mostly unresponsive, but did moan to stimulation. I do not have any history of vomiting or overt aspiration. With regards to the patient's tobacco use/abuse history, she is described as a never smoker. The above is as much of the history of presentation as I have. Of note, also no mention of any injuries on her body. There was a mention of a possible vaginal discharge according to I believe the history from the patient's mother, but no purulent discharge was seen or other type of discharge reportedly, at the insertion of Rebollar catheter. This really is as much of the history of presentation as I have. PAST MEDICAL HISTORY: Diabetes. She was also taking blood pressure medication at home according to the home medication list and she also has a history of seizures. She reportedly also has a history of being on Keppra. ____ she has a history of bipolar disorder. PAST SURGICAL HISTORY: Unknown. MEDICATIONS: She was on at the time I stopped by to see her, according to the medication administration record included the following: Sodium bicarbonate drip, 3 amps of sodium bicarbonate per liter of sterile water running at 100 mL per hour. She was also on an IV insulin drip at 8 units per hour, Levophed drip had been started earlier today. I believe at 5 mcg per minute. Keppra 500 mg p.o. b.i.d., enoxaparin 30 mg subcu daily. ALLERGIES: AZITHROMYCIN. Nature of this allergy is unknown. DIET: Obese young lady, acute weight loss or gain history is unknown. FAMILY AND SOCIAL HISTORY: Lives in the community. Alcohol, tobacco use history is unknown. She reportedly does use some street drugs. Family history is otherwise unknown. REVIEW OF SYSTEMS: Unobtainable secondary to patient's medical and mental condition. Since she has been in the hospital, no gross hematochezia or melena, no gross hematuria. Seems like she had a witnessed seizure. No hematemesis, no hemoptysis. Review of systems is otherwise unobtainable or as in the body of the history above. PHYSICAL EXAMINATION: VITAL SIGNS: At presentation the initial vital signs, temperature was 90.4 degrees Fahrenheit, pulse of 89, respiratory rate of 25, blood pressure 84/35, O2 sats 100%, inspired oxygen concentration at that time was not recorded. GENERAL: She is a young, obese female. Normocephalic, atraumatic. Resting in bed with mildly increased respiratory effort at rest, but without overt Kussmaul respirations. HEAD, EYES, EARS, NOSE AND THROAT: Anicteric. No conjunctival erythema. Oropharynx was dry. NECK: No gross jugular venous distention, no thyromegaly. Grossly, there were no palpable lymph nodes in the supraclavicular or submandibular lymph node chains. LUNGS: Auscultation of both lung murphy were unremarkable. Lungs were clear bilaterally with good bilateral air movement. No wheezing. HEART: Sounds 1 and 2 are heard. Regular tachycardia at the time of my evaluation without overt rubs or murmurs. ABDOMEN: Soft, full, nontender. Bowel sounds are positive, but hyperactive. No palpable hepatosplenomegaly. EXTREMITIES: Without overt digital clubbing or cyanosis, no pedal edema. Pedal pulses are 2+ bilaterally. NEUROLOGIC: Pupils were equal, round, about 3 mm, reactive to light. Extraocular muscle movements could not be assessed. She had spontaneous movements to all 4 extremities, but she was lethargic. SKIN: Normal turgor in the areas examined without overt cellulitis or rash. Please see the registered wound care nurses' notes for full description of her skin. PSYCHIATRIC: Mood and affect could not be assessed. She was lethargic/encephalopathic. LABORATORY DATA: From my review are as follows: Admission white cell count 42,400, hemoglobin 11.3, hematocrit 46.6, and a platelet count of 316. No significant band forms on the manual differential. Venous blood gas showed a pH of 6.88. Serum sodium was 126, potassium 7.6, chloride was 76, bicarbonate was less than 2. BUN was 42, creatinine was 3.2, glucose was 1603. Lactic acid was 8.2. Liver function tests otherwise within normal limits. Ammonia was high at 97. CPK was up at 357. TSH within normal limits. Urine test was negative. Urinalysis was negative for nitrites and leukocyte esterase. Aspirin, Tylenol and alcohol levels were nondetectable. Urine drug screen was presumptive negative. HIV 1 and 2 tests were negative. Two sets of blood cultures, no growth to date. Chest x-ray has been reviewed, it is a normal chest x-ray for age. A CT scan of the head was also done. It was read as no acute abnormality. A CT of the abdomen and pelvis was also done. It showed no acute abnormality. ASSESSMENT: 1. Diabetic ketoacidosis. 2. Severe metabolic acidosis. 3. Acute kidney injury. 4. Acute toxic metabolic encephalopathy. 5. Severe leukocytosis. 6. Sepsis, unspecified. 7. Hyperkalemia. 8. Lactic acidosis. 9. Hyperammonemia. 10. Obesity. 11. Possible drug use. PLAN: We will keep her on the supplemental bicarbonate. They have just called another serum potassium of I believe 7.6 and I have ordered for 2 more amps of bicarbonate to be pushed. We will also continue the insulin therapy. She has received 3 units of IV normal saline at presentation. Volume resuscitation will continue. Oxygen will be weaned to keep sats greater than or equal to about 90%. Aspiration precautions will be maintained. I will order genital swabs to ensure that there is no genitourinary infection as the cause of the sepsis/diabetic ketoacidosis. I do feel that we are likely dealing with a stress leukocytosis. She did receive a dose of doxycycline in the emergency room. I will be ordering procalcitonin levels and trend in the lactic acid levels to help guide clinical decision making. Oxygen will be weaned to keep sats greater than or equal to 90%. She will remain n.p.o. for now. Vasopressors will be titrated to keep mean arterial pressures greater than or equal to 65 mmHg. Nephrology consult has been placed. Urine electrolytes will be ordered to assist with management and better characterization of the acute kidney injury. She is appropriately on DVT prophylaxis. She will be placed on GI prophylaxis. Consideration will be given for Infectious Disease consultation. I will defer to the attending physician on that. Flu and pneumonia vaccination will be addressed per protocol. Thank you very much for the consult. We will follow along and make further recommendations as picture progresses/becomes clearer. Of note, she does have a femoral central line that will be discontinued over the next 24-48 hours. If she still needs vasopressors then a different site will be chosen. Again, thank you very much for the consult. We will follow along and make further recommendations as picture progresses/becomes clearer. She is critically ill on life-sustaining interventions including the IV insulin therapy and vasopressors, at high risk for from cardiopulmonary and endocrine system decompensation. At this time, we spent about 35 to 40 minutes of critical care time without overlap and excluding any procedural time that may be necessary. TID: [id number] RECEIPT: [id number] CONRAD/RAVINDER/RUDY
[2020-10-04] MEDS ORDERED: ACETAMINOPHEN 325 MG TAB PO ONE (05:50)
[2020-10-04 06:11] LABS: Basophils # (Auto) 0.1 K/mm3 (0.0-0.1); Basophils % (Auto) 0.3 % (0.0-1.8); Hematocrit 31.2 % (30.3-42.9); Hemoglobin 10.6 gm/dl (10.1-14.3); Lymphocytes # (Auto) 3.9 K/mm3 (1.2-5.4); Lymphocytes % (Auto) 21.3 % (13.4-35.0); Mean Corpuscular HGB Conc 34 % (30-34); Mean Corpuscular Volume 92 fl (79-97); Monocytes # (Auto) 0.8 K/mm3 (0.0-0.8); Monocytes % (Auto) 4.6 % (0.0-7.3); Platelet Count 202 K/mm3 (140-440); Red Blood Count 3.38 M/mm3 (3.65-5.03); Red Cell Distribution Width 15.6 % (13.2-15.2)
[2020-10-04 06:32] LABS: BUN/Creatinine Ratio 13; Blood Urea Nitrogen 16 mg/dL (7-17); Calcium 8.4 mg/dL (8.4-10.2); Hemolysis Index 0
[2020-10-04 09:37] VITALS: BP 137/88
[2020-10-04] MEDS ORDERED: POTASSIUM CHLORIDE ER 20 MEQ TAB PO SCH (10:00)
[2020-10-04] MEDS: INSULIN REGULAR, HUMAN 100 UNITS/1 ML SUB-Q SCH (10:13)
[2020-10-04] MEDS: INSULIN NPH, HUMAN 100 UNIT/1 ML SUB-Q SCH (10:14)
[2020-10-04] MEDS: levETIRAcetam 500 MG TAB PO SCH (10:15)
[2020-10-04] MEDS: ENOXAPARIN 30 MG/0.3 ML INJ SUB-Q SCH (10:15)
[2020-10-04] MEDS: FAMOTIDINE 20 MG/2 ML INJ IV SCH (10:15)
--- NOTE | 2020-10-04 14:21 | Discharge Summary ---
Providers - Providers Date of Admission: 10/02/20 13:19 Date of discharge: 10/04/20 Attending physician: KM DEL CID 10/02/20 12:04 Consult to Physician [CONS] Stat Comment: dr. smith saw patient/ indra Consulting Provider: JOSE RAMON CHOW Physician Instructions: Reason For Exam: DKA, ICU management 10/02/20 16:47 Consult to Physician [CONS] Stat Comment: DR. SNOWDEN SAW PATIENT/ INDRA Consulting Provider: RAMA SNOWDEN Physician Instructions: Reason For Exam: hyperkalemiw 10/03/20 15:42 Consult to Mental Health [CONS] Routine Reason For Exam: bipolar disorder Primary care physician: DETHISTLER OPERATOR Hospitalization Condition: Serious Hospital course: This is a 20-year-old female with history of diabetes mellitus type 1 seizure disorder bipolar disorder suicidal attempt in 2017 brought to the ER by EMS after being found unresponsive by the family member. On admission patient noted to have white count of 42,000, venous blood pH 6.8, sodium 126, creatinine 3.2, CO2 <2, lactic acid 8.2, blood glucose of 1603, blood in urine with positive ketones. Patient was placed on bicarbonate drip and insulin drip and admitted to ICU with DKA protocol. Next day Patient remains lethargic, anion gap closed, he was started on consistent carb diet, stopped insulin drip and bicarbonate drip. Placed on SSI and long-acting insulin. Creatinine level slightly improved, nephrology was following. Patient was transferred back to telemetry from the ICU. But next day patient decided to leave AMA and did not even wait to get her prescriptions or being evaluated by MD. Disposition: [id number] LEFT AGAINST MED ADVICE Final Discharge Diagnosis (Prints w/discharge instructions): -- DKA (diabetic ketoacidosis). -- Seizure disorder. -- Metabolic encephalopathy. -- Acute kidney injury (COLT) with acute tubular necrosis (ATN). --History of bipolar disorder. --Hyponatremia likely due to hyperglycemia, resolved. --Hypernatremia, will place on hypotonic fluid, resolved Core Measure Documentation - Palliative Care Palliative Care/ Comfort Measures: Not Applicable - Core Measures Any of the following diagnoses?: none Exam - Constitutional Vitals: Temp Pulse Resp BP Pulse Ox 98.0 F 81 18 136/82 100 10/04/20 03:31 10/04/20 08:28 10/04/20 03:31 10/04/20 03:31 10/04/20 10:00 Plan Activity: advance as tolerated Weight Bearing Status: Weight Bear as Tolerated Diet: diabetic Follow up with: PRIMARY CARE, [Primary Care Provider] - 3-5 Days Forms: AMA Form
[2020-10-05] MEDS ORDERED: ENOXAPARIN 40 MG/0.4 ML INJ SUB-Q SCH (10:00)
== END 2020-10-04 11:53 | disposition left against medical advice (07) | DRG 637 ==
LOC: ED 10:25 → CC1 13:19 → 4A 10-03 21:51
PROVIDERS: ADMIT Internal Medicine; ATTEND Internal Medicine
DX: E10.10 Type 1 diabetes mellitus with ketoacidosis without coma (principal); N17.0 Acute kidney failure with tubular necrosis; G92 Toxic encephalopathy; R65.10 Systemic inflammatory response syndrome (SIRS) of non-infectious origin without acute organ dysfunction; Z20.822 Contact with and (suspected) exposure to COVID-19; E87.5 Hyperkalemia; I95.9 Hypotension, unspecified; E66.9 Obesity, unspecified; D72.829 Elevated white blood cell count, unspecified; E83.39 Other disorders of phosphorus metabolism; Z79.4 Long term (current) use of insulin; Z79.899 Other long term (current) drug therapy; Z82.49 Family history of ischemic heart disease and other diseases of the circulatory system; Z88.1 Allergy status to other antibiotic agents
CPT/HCPCS: 36415; 70450; 71045; 74176; 80048; 80053; 80307; 80320; 81001; 82010; 82140; 82550; 82570; 82805; 82947; 82962; 83735; 84100; 84145; 84300; 84443; 84703; 85007; 85025; 85027; 87040; 87591; 87806; 93005; 96365; 96367; 99292; G0378; G0480; J0610; J0696; J1650; J1815; J2310; J7030; J7050; U0003

== ENCOUNTER 2021-01-28 21:18 | Emergency (ER) | payer MEDICAID ==
[2021-01-28 22:39] VITALS: BP 147/87
--- NOTE | 2021-01-29 02:08 | Emergency Department Report ---
ED General Adult HPI - General Chief complaint: Upper Respiratory Infection Stated complaint: SEVERE COUGH BODYACHE Time Seen by Provider: 01/28/21 23:52 Source: patient Mode of arrival: Ambulatory Limitations: No Limitations - History of Present Illness Initial comments: 21-year-old female patient with history of tobacco use presents to the emergency department with complaints of a cough for four days. No known sick contacts. No current steroid or antibiotic use. No recent travel. No current medications. Patient has not been tested for COVID-19 since symptom onset. Patient did not receive her COVID-19 vaccination series. Patient states "her mother sent here to be checked out for bronchitis." Denies fever, chills, chest pain, dyspnea, wheezing, congestion. Denies all other complaints at this time. - Related Data Previous Rx's Medication Instructions Recorded Last Taken Type levETIRAcetam [Keppra TAB] 500 mg PO BID #60 tablet 06/17/16 Unknown Rx Acetaminophen/Codeine [Tylenol 1 tab PO Q6H PRN #20 tab 11/28/16 Unknown Rx /Codeine # 3 tab] Amoxicillin/K Clav Tab [Augmentin 1 tab PO Q12HR #20 tab 11/28/16 Unknown Rx 875 mg] Neomy/Polymyx B/Hc (Otic) Soln 4 drops .ROUTE TID #10 ml 11/28/16 Unknown Rx [Cortisporin (Otic) Soln] Ondansetron [Zofran Odt] 4 mg PO Q8HR PRN #12 tab.rapdis 04/21/20 Unknown Rx Allergies Allergy/AdvReac Type Severity Reaction Status Date / Time azithromycin [From Zithromax] Allergy Rash Verified 08/24/13 07:30 ED Review of Systems ROS: Stated complaint: SEVERE COUGH BODYACHE Other details as noted in HPI Other: GENERAL: Negative for fever, chills, weight change, anorexia, fatigue. ENT: Negative for ear pain, difficulty hearing, sore throat, nasal congestion, epistaxis. CARDIOVASCULAR: Negative for chest pain, palpitations, lower extremity swelling. PULMONARY: Positive for cough. GASTROINTESTINAL: Negative for abdominal pain, nausea, vomiting, diarrhea, constipation. MUSCULOSKELETAL: Negative for joint pain, joint swelling, myalgias, back pain, neck pain. NEUROLOGICAL: Negative for headache, seizure, syncope, paresthesias, weakness. INTEGUMENTARY: Negative for erythema, rash, diaphoresis, laceration, ecchymosis. HEMATOLOGICAL: Negative for hemoptysis, hematemesis, hematochezia, hematuria. PSYCHIATRIC: Negative for hallucinations, suicidal ideation, homicidal ideation, anxiety, depression. ED Past Medical Hx - Past Medical History Previous Medical History?: Yes Hx Congestive Heart Failure: No Hx Diabetes: Yes Hx Seizures: Yes (new this admission) Hx Psychiatric Treatment: Yes (bipolar) Hx Asthma: No Hx COPD: No Hx HIV: No - Surgical History Past Surgical History?: No - Social History Smoking Status: Never Smoker Substance Use Type: None - Medications Home Medications: Home Medications Medication Instructions Recorded Confirmed Last Taken Type levETIRAcetam [Keppra TAB] 500 mg PO BID #60 tablet 06/17/16 Unknown Rx Acetaminophen/Codeine [Tylenol 1 tab PO Q6H PRN #20 tab 11/28/16 Unknown Rx /Codeine # 3 tab] Amoxicillin/K Clav Tab [Augmentin 1 tab PO Q12HR #20 tab 11/28/16 Unknown Rx 875 mg] Neomy/Polymyx B/Hc (Otic) Soln 4 drops .ROUTE TID #10 ml 11/28/16 Unknown Rx [Cortisporin (Otic) Soln] Ondansetron [Zofran Odt] 4 mg PO Q8HR PRN #12 tab.rapdis 04/21/20 Unknown Rx ED Physical Exam - General Limitations: No Limitations - Other Other exam information: General: Awake and alert. No acute distress. Head: Atraumatic, normocephalic. Eyes: EOMI. Pupils are equal and round. Normal sclera and conjunctiva. ENT: Oral mucosa is moist. Normal pharyngeal exam. Neck: Supple. No lymphadenopathy. Pulmonary: Cough present. No respiratory distress. Clear to auscultation bilaterally. Cardiac: Regular rate and rhythm. Pulses are palpable and equal bilaterally. No lower extremity cyanosis or edema. Skin: Warm and dry. No rashes. Abdomen: Soft, non-tender, non-protuberant. No guarding, rigidity, or rebound. Bowel sounds are normal. No organomegaly or masses noted. Back: Normal alignment. No CVA tenderness. Extremities: Symmetrical. Full range of motion intact. Neurological: Alert and oriented, appropriately interactive, no focal deficits. Psych: Cooperative. Appropriate mood and affect. Speech is evenly metered. Thoughts are logically construed. ED Course Vital Signs 01/28/21 22:38 Temperature 99.2 F Pulse Rate 84 Respiratory 18 Rate Blood Pressure 147/87 O2 Sat by Pulse 100 Oximetry ED Medical Decision Making - Medical Decision Making Differential diagnosis including but not limited to: pneumonia, influenza, pertussis, viral upper respiratory infection, reactive airways disease Critical care attestation.: If time is entered above; I have spent that time in minutes in the direct care of this critically ill patient, excluding procedure time. ED Disposition Condition: Stable
== END 2021-01-29 00:30 | disposition left against medical advice (07) ==
LOC: ED 21:18
DX: R05 Cough (principal); E11.8 Type 2 diabetes mellitus with unspecified complications; Z88.1 Allergy status to other antibiotic agents
CPT/HCPCS: 99281

== ENCOUNTER 2021-12-01 01:25 | Emergency (ER) | payer MEDICAID ==
[2021-12-01 02:36] VITALS: BP 148/82
[2021-12-01] MEDS ORDERED: diphenhydrAMINE 25 MG CAP PO ONE (03:34)
[2021-12-01] MEDS ORDERED: ACETAMINOPHEN 500 MG TAB PO ONE (03:34)
[2021-12-01] MEDS ORDERED: predniSONE 50 MG TAB PO ONE (03:34)
--- NOTE | 2021-12-01 03:59 | Emergency Department Report ---
- General Chief Complaint: Sore Throat Stated Complaint: SORE THROAT/SOB Source: patient Mode of arrival: Ambulatory Limitations: No Limitations - History of Present Illness Initial Comments: Patient is a A0 21-year-old -[place] female who is approximately 29 weeks gestation and who presents to the ED with complaint of acute onset persistent nasal and sinus congestion, frontal sinus pressure and headache, sore throat, diffuse body aches and pains, persistent dry cough for the last 3 days. Patient states that she has not been able to take anything because she did not want to take because she is 29 weeks gestation. Patient denies dizziness, syncope, fever, chills, nausea and vomiting, diarrhea, abdominal pain, vaginal bleeding, vaginal discharge, dysphagia, dysphonia, back pain or neck pain. MD Complaint: cough, sore throat, rhinorrhea, nasal congestion, sinus pain -: days(s) (3) Severity: moderate Severity scale (0 -10): 5 Quality: sharp Consistency: constant Improves With: nothing Worsens With: nothing Associated Symptoms: denies other symptoms, rhinorrhea, nasal congestion, sore throat, cough. denies: chest pain, shortness of breath, abdominal pain, nausea, vomiting, diarrhea, rash, confusion, weight loss, epistaxis, hoarseness, ear pain Treatments Prior to Arrival: none - Related Data Previous Rx's Medication Instructions Recorded Last Taken Type levETIRAcetam [Keppra TAB] 500 mg PO BID #60 tablet 06/17/16 Unknown Rx Acetaminophen/Codeine [Tylenol 1 tab PO Q6H PRN #20 tab 11/28/16 Unknown Rx /Codeine # 3 tab] Amoxicillin/K Clav Tab [Augmentin 1 tab PO Q12HR #20 tab 11/28/16 Unknown Rx 875 mg] Neomy/Polymyx B/Hc (Otic) Soln 4 drops .ROUTE TID #10 ml 11/28/16 Unknown Rx [Cortisporin (Otic) Soln] Ondansetron [Zofran Odt] 4 mg PO Q8HR PRN #12 tab.rapdis 04/21/20 Unknown Rx Acetaminophen [Tylenol] 500 mg PO Q6HR PRN #30 tablet 12/01/21 Unknown Rx Amoxicillin [Trimox CAP] 500 mg PO Q8H #30 capsule 12/01/21 Unknown Rx Cetirizine HCl [Zyrtec 10mg tab] 10 mg PO DAILY #30 tab 12/01/21 Unknown Rx diphenhydrAMINE [Benadryl CAP] 25 mg PO Q6HR PRN #30 capsule 12/01/21 Unknown Rx predniSONE [Deltasone] 40 mg PO QDAY #10 tab 12/01/21 Unknown Rx Allergies Allergy/AdvReac Type Severity Reaction Status Date / Time azithromycin [From Zithromax] Allergy Rash Verified 08/24/13 07:30 ED Review of Systems ROS: Stated complaint: SORE THROAT/SOB Other details as noted in HPI Constitutional: denies: chills, fever Eyes: denies: eye pain, eye discharge, vision change ENT: throat pain, congestion, other (Frontal sinus pressure). denies: ear pain Respiratory: cough. denies: shortness of breath, wheezing Cardiovascular: denies: chest pain, palpitations Endocrine: no symptoms reported Gastrointestinal: denies: abdominal pain, nausea, vomiting, diarrhea Genitourinary: denies: urgency, dysuria, discharge Musculoskeletal: denies: back pain, joint swelling, arthralgia Skin: denies: rash, lesions Neurological: headache (Frontal sinus pressure). denies: weakness, paresthesias Psychiatric: denies: anxiety, depression Hematological/Lymphatic: denies: easy bleeding, easy bruising ED Past Medical Hx - Past Medical History Previous Medical History?: Yes Hx Congestive Heart Failure: No Hx Diabetes: Yes (Type 1) Hx Seizures: Yes (new this admission) Hx Psychiatric Treatment: Yes (bipolar) Hx Asthma: No Hx COPD: No Hx HIV: No - Social History Smoking Status: Never Smoker Substance Use Type: None - Medications Home Medications: Home Medications Medication Instructions Recorded Confirmed Last Taken Type levETIRAcetam [Keppra TAB] 500 mg PO BID #60 tablet 06/17/16 Unknown Rx Acetaminophen/Codeine [Tylenol 1 tab PO Q6H PRN #20 tab 11/28/16 Unknown Rx /Codeine # 3 tab] Amoxicillin/K Clav Tab [Augmentin 1 tab PO Q12HR #20 tab 11/28/16 Unknown Rx 875 mg] Neomy/Polymyx B/Hc (Otic) Soln 4 drops .ROUTE TID #10 ml 11/28/16 Unknown Rx [Cortisporin (Otic) Soln] Ondansetron [Zofran Odt] 4 mg PO Q8HR PRN #12 tab.rapdis 04/21/20 Unknown Rx Acetaminophen [Tylenol] 500 mg PO Q6HR PRN #30 tablet 12/01/21 Unknown Rx Amoxicillin [Trimox CAP] 500 mg PO Q8H #30 capsule 12/01/21 Unknown Rx Cetirizine HCl [Zyrtec 10mg tab] 10 mg PO DAILY #30 tab 12/01/21 Unknown Rx diphenhydrAMINE [Benadryl CAP] 25 mg PO Q6HR PRN #30 capsule 12/01/21 Unknown R x predniSONE [Deltasone] 40 mg PO QDAY #10 tab 12/01/21 Unknown Rx ED Physical Exam - General Limitations: No Limitations General appearance: alert, in no apparent distress - Head Head exam: Present: atraumatic, normocephalic, normal inspection - Eye Eye exam: Present: normal appearance, PERRL, EOMI Pupils: Present: normal accommodation - ENT ENT exam: Present: mucous membranes moist, TM's normal bilaterally, normal external ear exam, other (Palpable frontal sinus tenderness; grossly congested nasal passages; mildly erythematous oropharynx) - Neck Neck exam: Present: normal inspection, full ROM. Absent: tenderness, lymphadenopathy - Respiratory Respiratory exam: Present: normal lung sounds bilaterally. Absent: respiratory distress, wheezes, rales, rhonchi, stridor, chest wall tenderness, accessory muscle use, decreased breath sounds, prolonged expiratory - Cardiovascular Cardiovascular Exam: Present: regular rate, normal rhythm, normal heart sounds. Absent: systolic murmur, diastolic murmur, rubs, gallop - GI/Abdominal GI/Abdominal exam: Present: soft, normal bowel sounds. Absent: tenderness, guarding, rebound, hyperactive bowel sounds, hypoactive bowel sounds, organomegaly, mass - Extremities Exam Extremities exam: Present: normal inspection, full ROM, normal capillary refill. Absent: tenderness - Back Exam Back exam: Present: normal inspection, full ROM. Absent: tenderness, CVA tenderness (R), CVA tenderness (L), muscle spasm, paraspinal tenderness, vertebral tenderness - Neurological Exam Neurological exam: Present: alert, oriented X3, CN II-XII intact, normal gait, reflexes normal - Psychiatric Psychiatric exam: Present: normal affect, normal mood - Skin Skin exam: Present: warm, dry, intact, normal color. Absent: rash ED Course Vital Signs 12/01/21 02:25 Temperature 98.9 F Pulse Rate 83 Respiratory 16 Rate Blood Pressure 148/82 [Right] O2 Sat by Pulse 100 Oximetry ED Medical Decision Making - Medical Decision Making This is a A0 21-year-old -[place]unis[place] female who is approximately 29 weeks gestation and who presents to the ED with complaint of acute onset persistent nasal and sinus congestion, frontal sinus pressure and headache, sore throat, diffuse body aches and pains, persistent dry cough for the last 3 days. Patient states that she has not been able to take anything because she did not want to take because she is 29 weeks gestation. In the ED, patient is alert and oriented x3 and is not in any distress. Patient was treated for pain in the ED and also given an decongestants. Patient was discharged home on medications based on the history and physical exam findings. Patient was advised to return to the ED immediately if symptoms get worse, otherwise follow-up with her primary care physician in 7 to 10 days for reevaluation. - Differential Diagnosis Sinusitis; URI; bronchitis; pharyngitis; rhinitis; Critical care attestation.: If time is entered above; I have spent that time in minutes in the direct care of this critically ill patient, excluding procedure time. ED Disposition Clinical Impression: Acute upper respiratory infection Acute frontal sinusitis Qualifiers: Recurrence: non-recurrent Qualified Code(s): J01.10 - Acute frontal sinusitis, unspecified Acute pharyngitis Qualifiers: Pharyngitis/tonsillitis etiology: other specified organisms Qualified Code(s): J02.8 - Acute pharyngitis due to other specified organisms Disposition: 01 HOME / SELF CARE / HOMELESS Is pt being admited?: No Does the pt Need Aspirin: No Condition: Stable Instructions: Sinusitis, Adult, [id number], Upper Respiratory Infection, Adult, [id number], Cough, Adult, [id number], Pharyngitis, [id number] Additional Instructions: Take medication with food, drink plenty of fluids and follow-up with your primary care physician in 7 to 10 days for reevaluation. Return to the ED immediately if symptoms get worse. Prescriptions: Acetaminophen [Tylenol] 500 mg PO Q6HR PRN #30 tablet PRN Reason: Pain , Severe (7-10) diphenhydrAMINE [Benadryl CAP] 25 mg PO Q6HR PRN #30 capsule PRN Reason: Congestion predniSONE [Deltasone] 40 mg PO QDAY #10 tab Amoxicillin [Trimox CAP] 500 mg PO Q8H #30 capsule Cetirizine HCl [Zyrtec 10mg tab] 10 mg PO DAILY #30 tab Referrals: [facility] [Provider Group] - 7-10 days Time of Disposition: 04:00 Print Language: ARABIC
== END 2021-12-01 04:51 | disposition home or self-care (01) ==
LOC: ED 01:25
DX: O99.513 Diseases of the respiratory system complicating pregnancy, third trimester (principal); J06.9 Acute upper respiratory infection, unspecified; J01.10 Acute frontal sinusitis, unspecified; J02.9 Acute pharyngitis, unspecified
CPT/HCPCS: 99282; J7512

== ENCOUNTER 2021-12-04 01:28 | Outpatient (CLI) | payer MEDICAID ==
[2021-12-04] MEDS ORDERED: LACTATED RINGERS 500 ML IV ONE (03:22)
[2021-12-04 03:57] LABS: Hematocrit 28.5 % (30.3-42.9); Hemoglobin 9.5 gm/dl (10.1-14.3); Mean Corpuscular HGB Conc 34 % (30-34); Mean Corpuscular Volume 97 fl (79-97); Platelet Count 194 K/mm3 (140-440); Red Blood Count 2.93 M/mm3 (3.65-5.03); Red Cell Distribution Width 12.9 % (13.2-15.2)
[2021-12-04 04:00] LABS: Bacteria,Urine 1+ /HPF (Negative)
[2021-12-04 04:01] LABS: Color,Urine Yellow (Yellow)
[2021-12-04 04:02] LABS: Bilirubin,Urine Negative (Negative); Blood,Urine Trace (Negative); PH,Urine 6.5 (5.0-7.0)
[2021-12-04 04:03] LABS: Protein,Urine >2000 mg dL mg/dL (Negative); Urobilinogen,Urine 0.2 mg/dL (<2.0)
[2021-12-04 04:04] VITALS: BP 148/86
[2021-12-04 04:18] LABS: Alanine Aminotransferase 29 units/L (7-56); BUN/Creatinine Ratio 8; Blood Urea Nitrogen 6 mg/dL (7-17); Calcium 8.3 mg/dL (8.4-10.2); Hemolysis Index 5; Uric Acid 5.3 mg/dL (3.5-7.6)
== END 2021-12-04 04:32 | disposition left against medical advice (07) ==
LOC: TRG 01:28 → APU 01:30 → TRG 04:32
PROVIDERS: ATTEND Obstetrics & Gynecology
DX: O26.893 Other specified pregnancy related conditions, third trimester (principal); M79.89 Other specified soft tissue disorders; Z3A.29 29 weeks gestation of pregnancy
CPT/HCPCS: 36415; 80053; 81001; 82962; 83615; 84550; 85027

== ENCOUNTER 2021-12-13 15:05 | Outpatient (CLI) | payer MEDICAID ==
[2021-12-13] MEDS ORDERED: LACTATED RINGERS 500 ML IV ONE (16:30)
[2021-12-13] MEDS ORDERED: LACTATED RINGERS 1,000 ML IV SCH ×3 (16:30→21:30)
[2021-12-13 17:47] LABS: Hematocrit 27.7 % (30.3-42.9); Hemoglobin 9.6 gm/dl (10.1-14.3); Mean Corpuscular HGB Conc 35 % (30-34); Mean Corpuscular Volume 96 fl (79-97); Platelet Count 218 K/mm3 (140-440); Red Blood Count 2.88 M/mm3 (3.65-5.03)
[2021-12-13 18:09] LABS: Alanine Aminotransferase 15 units/L (7-56)
[2021-12-13 18:41] LABS: WBC,Urine < 1.0 /HPF (0.0-6.0)
[2021-12-13 18:42] LABS: Bilirubin,Urine NEG (Negative); Blood,Urine NEG (Negative); Color,Urine Yellow (Yellow); Protein,Urine >500 mg/dL (Negative); Urobilinogen,Urine < 2.0 mg/dL (<2.0)
[2021-12-13] MEDS ORDERED: ONDANSETRON 4 MG/2 ML INJ IV PRN (19:51)
[2021-12-13] MEDS ORDERED: ACETAMINOPHEN 325 MG TAB PO PRN (19:51)
[2021-12-13] MEDS ORDERED: BUTORPHANOL 2 MG/1 ML INJ IV PRN (19:51)
[2021-12-13] MEDS ORDERED: SODIUM CHLORIDE NASAL SPRAY 44ML NS PRN (21:25)
[2021-12-13] MEDS ORDERED: SIMETHICONE 80 MG CHEW TAB PO PRN (21:25)
[2021-12-13] MEDS ORDERED: DOCUSATE SODIUM 100 MG CAP PO PRN (21:25)
[2021-12-13] MEDS ORDERED: hydrALAZINE 20 MG/1 ML INJ IV PRN (21:29)
--- NOTE | 2021-12-13 21:35 | History and Physical Report ---
History of Present Illness Date of examination: 12/13/21 Chief complaint: "They told me I have preeclampsia" History of present illness: Pt is a 21 year old -[place] female primigravida LISANDRO 02/13/22 at 31w1d who presents with complaint that she was evaluated at [facility] and told that she had preeclampsia according to the patient. She notes that she was not satisfied with her treatment, so she left the hospital against medical advice three days ago. She presents today because she wants to follow up on the diagnosis. She has had care at [facility] since 10 wks complicated by Type 1 Diabetes, Chronic HTN, Genital herpes without lesion or prodrome, LSIL pap smear , Polyhydramnios, Subclinical Hyperthyroidism. Her GBS status is unknown. Pt however denies that she has a h/o thyroid dysfunction. Past History Past Medical History: hypertension (no meds prior to [facility] hospital admission, on Procardia XL 30 mg ), diabetes (type 1, diagnosed at age 3 ) Past Surgical History: no surgical history [employer] History: abnormal PAP smear (LSIL ), herpes Family/Genetic History: diabetes, hypertension, other (asthma ) Social history: no significant social history, other (depression, history of bipolar disorder but pt denies it presently ) - Obstetrical History Expected Date of Delivery: 02/13/22 Actual Gestation: 31 Week(s) 1 Day(s) : 1 Medications and Allergies Allergies Allergy/AdvReac Type Severity Reaction Status Date / Time azithromycin [From Zithromax] Allergy Rash Verified 08/24/13 07:30 Home Medications Medication Instructions Recorded Confirmed Last Taken Type levETIRAcetam [Keppra TAB] 500 mg PO BID #60 tablet 06/17/16 Unknown Rx Acetaminophen/Codeine [Tylenol 1 tab PO Q6H PRN #20 tab 11/28/16 Unknown Rx /Codeine # 3 tab] Amoxicillin/K Clav Tab [Augmentin 1 tab PO Q12HR #20 tab 11/28/16 Unknown Rx 875 mg] Neomy/Polymyx B/Hc (Otic) Soln 4 drops .ROUTE TID #10 ml 11/28/16 Unknown Rx [Cortisporin (Otic) Soln] Ondansetron [Zofran Odt] 4 mg PO Q8HR PRN #12 tab.rapdis 04/21/20 Unknown Rx Acetaminophen [Tylenol] 500 mg PO Q6HR PRN #30 tablet 12/01/21 Unknown Rx Amoxicillin [Trimox CAP] 500 mg PO Q8H #30 capsule 12/01/21 Unknown Rx Cetirizine HCl [Zyrtec 10mg tab] 10 mg PO DAILY #30 tab 12/01/21 Unknown Rx diphenhydrAMINE [Benadryl CAP] 25 mg PO Q6HR PRN #30 capsule 12/01/21 Unknown Rx predniSONE [Deltasone] 40 mg PO QDAY #10 tab 12/01/21 Unknown Rx Active Meds: Active Medications Acetaminophen (Acetaminophen 325 Mg Tab) 650 mg PO Q4H PRN PRN Reason: Pain, Mild (1-3) Butorphanol Tartrate (Butorphanol 2 Mg/1 Ml Inj) 2 mg IV Q2H PRN PRN Reason: Pain , Severe (7-10) Docusate Sodium (Docusate Sodium 100 Mg Cap) 100 mg PO Q12H PRN PRN Reason: Constipation Lactated Ringer's (Lactated Ringers) 1,000 mls @ 125 mls/hr IV DIRECT CLARE Last Admin: 12/13/21 19:54 Dose: 125 mls/hr Lactated Ringer's (Lactated Ringers) 1,000 mls @ 125 mls/hr IV DIRECT CLARE Insulin Glargine (Insulin Glargine 100 Units/Ml) 15 units SUB-Q QAMDIAB CLARE Insulin Glargine (Insulin Glargine 100 Units/Ml) 15 units SUB-Q QHS CLARE Multivitamins/Iron/Calcium ( [id number]-Du Fumarate-Folic Acid Vit Tab) 1 each PO QDAY CLARE Nifedipine (Nifedipine Xl 30 Mg Tab) 30 mg PO QDAY CLARE Ondansetron HCl (Ondansetron 4 Mg/2 Ml Inj) 4 mg IV Q8H PRN PRN Reason: Nausea And Vomiting - Vital Signs Vital signs: Vital Signs Pulse Pulse Ox 87 99 12/13/21 15:46 12/13/21 15:46 Temp Pulse Resp BP Pulse Ox 98.2 F 97 H 16 157/91 97 12/13/21 16:00 12/13/21 21:17 12/13/21 16:00 12/13/21 20:56 12/13/21 21:17 - Physical Exam Breasts: Positive: deferred Abdomen: Positive: soft (gravid ) Uterus: Positive: enlarged (gravid ) Extremities: Positive: normal - Obstetrical FHR: auscultation normal Uterine Contraction Monitor Mode: External Uterine Contraction Pattern: Irregular Uterine Tone Measurement Phase: Resting Uterine Contraction Intensity: Mild Results Result Diagrams: 12/13/21 16:19 12/13/21 16:19 Abnormal lab results 12/13/21 12/13/21 Range/Units 16:19 16:19 RBC 2.88 L (3.65-5.03) M/mm3 Hgb 9.6 L (10.1-14.3) gm/dl Hct 27.7 L (30.3-42.9) % MCH 33 H (28-32) pg MCHC 35 H (30-34) % RDW 13.0 L (13.2-15.2) % Lactate Dehydrogenase 204 H (91-180) units/L All other labs normal. Assessment and Plan A: IUP at 31w1d Chronic HTN with pt reported diagnosis of superimposed preeclampsia, records not available for review Type 1 Diabetes Genital Herpes Abnormal Pap Smear P: Admit to antepartum service Restart Procardia XL 30 mg daily Begin glucose monitoring, and insulin as scheduled Obtain records from [facility] for well being PIH labs MFM consult in the AM Closely monitor maternal and status
[2021-12-13] MEDS ORDERED: INSULIN GLARGINE 100 UNITS/ML SUB-Q SCH (22:00)
[2021-12-13] MEDS: NIFEdipine XL 30 MG TAB PO SCH (22:18)
[2021-12-14] MEDS ORDERED: DEXTROSE 50% IN WATER (25GM) 50 ML SYRINGE IV PRN ×2 (02:36→02:41)
[2021-12-14] MEDS ORDERED: INSULIN LISPRO 100 UNIT/ML SUB-Q PRN (02:36)
[2021-12-14] MEDS: INSULIN REGULAR, HUMAN 100 UNITS/1 ML SUB-Q PRN ×3 (02:54→20:20)
[2021-12-14] MEDS ORDERED: INSULIN GLARGINE 100 UNITS/ML SUB-Q SCH ×3 (08:00→22:00)
--- NOTE | 2021-12-14 09:22 | Progress Note ---
Assessment and Plan A: IUP at 31w2d Chronic HTN with pt reported diagnosis of superimposed preeclampsia, records not available for review; on Procardia XL 30 mg daily Type 1 Diabetes on Basaglar 30 units BID, and sliding scale PRN Genital Herpes Abnormal Pap Smear Limited Care Depression P: Admit to antepartum service Begin glucose monitoring, and insulin as scheduled Obtain records from [facility] this morning MFM consult today Closely monitor maternal and status Subjective - Subjective Date of service: 12/14/21 Principal diagnosis: IUP at 31w2d, Type 1 DM, CHTN Interval history: Overnight, pt reports taking some of her own insulin in addition to the insulin that was prescribed. Pt discouraged from taking her own insulin while she is hospitalized. Otherwise no new complaints. Pt cannot recall her sliding scale from [facility]. [place] was contacted overnight to receive her records from the end of November, but medical records is not open until Wednesday December 15, 2021. Patient reports: movement normal, no new complaints, no loss of fluid, no vaginal bleeding, no contractions Objective - Vital Signs Vital Signs: Vital Signs - 12hr 12/13/21 12/13/21 12/13/21 21:36 21:41 21:46 Temperature Pulse Rate 108 H 89 104 H Respiratory Rate Blood Pressure Blood Pressure [Left] O2 Sat by Pulse 98 100 98 Oximetry 12/13/21 12/13/21 12/13/21 21:51 21:56 22:01 Temperature Pulse Rate 89 87 108 H Respiratory Rate Blood Pressure 144/80 Blood Pressure [Left] O2 Sat by Pulse 98 98 98 Oximetry 12/13/21 12/13/21 12/13/21 22:06 22:11 22:16 Temperature Pulse Rate 90 90 105 H Respiratory Rate Blood Pressure Blood Pressure [Left] O2 Sat by Pulse 99 98 99 Oximetry 12/13/21 12/13/21 12/13/21 22:21 22:25 22:26 Temperature Pulse Rate 95 H 84 91 H Respiratory 18 Rate Blood Pressure 120/60 Blood Pressure 120/60 [Left] O2 Sat by Pulse 99 99 99 Oximetry 12/13/21 12/13/21 12/13/21 22:31 22:36 22:41 Temperature Pulse Rate 97 H 94 H 87 Respiratory Rate Blood Pressure Blood Pressure [Left] O2 Sat by Pulse 98 99 99 Oximetry 12/13/21 12/13/2112/13/22 22:46 22:51 22:55 Temperature Pulse Rate 90 88 88 Respiratory Rate Blood Pressure 119/61 Blood Pressure [Left] O2 Sat by Pulse 99 99 Oximetry 12/13/21 12/13/21 12/13/21 22:56 23:01 23:06 Temperature Pulse Rate 93 H 90 92 H Respiratory Rate Blood Pressure Blood Pressure [Left] O2 Sat by Pulse 98 99 98 Oximetry 12/13/21 12/13/21 12/13/21 23:11 23:16 23:21 Temperature Pulse Rate 99 H 106 H 91 H Respiratory Rate Blood Pressure Blood Pressure [Left] O2 Sat by Pulse 100 100 100 Oximetry 12/13/21 12/13/21 12/13/21 23:25 23:26 23:31 Temperature Pulse Rate 111 H 104 H 99 H Respiratory Rate Blood Pressure 137/97 Blood Pressure 137/97 [Left] O2 Sat by Pulse 99 99 98 Oximetry 12/13/21 12/13/21 12/13/21 23:36 23:41 23:46 Temperature Pulse Rate 98 H 99 H 102 H Respiratory Rate Blood Pressure Blood Pressure [Left] O2 Sat by Pulse 98 98 100 Oximetry 12/13/21 12/13/21 12/13/21 23:51 23:55 23:56 Temperature Pulse Rate 91 H 84 95 H Respiratory Rate Blood Pressure 146/87 Blood Pressure [Left] O2 Sat by Pulse 98 99 Oximetry 12/14/21 12/14/21 12/14/21 00:01 00:06 02:28 Temperature Pulse Rate 98 H 95 H 83 Respiratory Rate Blood Pressure 142/83 Blood Pressure [Left] O2 Sat by Pulse 98 99 Oximetry 12/14/21 12/14/21 12/14/21 03:09 03:14 03:19 Temperature Pulse Rate 102 H 105 H 89 Respiratory Rate Blood Pressure Blood Pressure [Left] O2 Sat by Pulse 100 100 100 Oximetry 12/14/21 12/14/21 12/14/21 03:24 03:29 03:31 Temperature Pulse Rate 78 80 78 Respiratory Rate Blood Pressure Blood Pressure [Left] O2 Sat by Pulse 96 100 89 Oximetry 12/14/21 12/14/21 12/14/21 03:34 03:39 03:44 Temperature Pulse Rate 88 85 88 Respiratory Rate Blood Pressure Blood Pressure [Left] O2 Sat by Pulse 99 98 99 Oximetry 12/14/21 12/14/21 12/14/21 03:49 03:54 03:58 Temperature 98.1 F Pulse Rate 84 91 H 90 Respiratory 18 Rate Blood Pressure 140/76 Blood Pressure 140/76 [Left] O2 Sat by Pulse 100 98 99 Oximetry 12/14/21 12/14/21 12/14/21 03:59 04:04 04:09 Temperature Pulse Rate 94 H 99 H 111 H Respiratory Rate Blood Pressure Blood Pressure [Left] O2 Sat by Pulse 100 100 100 Oximetry 12/14/21 12/14/21 12/14/21 04:14 04:19 04:24 Temperature Pulse Rate 115 H 102 H 109 H Respiratory Rate Blood Pressure Blood Pressure [Left] O2 Sat by Pulse 98 100 100 Oximetry 12/14/21 12/14/21 12/14/21 04:29 04:34 04:39 Temperature Pulse Rate 100 H 89 84 Respiratory Rate Blood Pressure Blood Pressure [Left] O2 Sat by Pulse 100 100 100 Oximetry 12/14/21 12/14/21 12/14/21 04:44 04:56 05:01 Temperature Pulse Rate 89 102 H 92 H Respiratory Rate Blood Pressure Blood Pressure [Left] O2 Sat by Pulse 99 99 100 Oximetry 12/14/21 12/14/21 12/14/21 05:06 05:11 05:16 Temperature Pulse Rate 91 H 86 99 H Respiratory Rate Blood Pressure Blood Pressure [Left] O2 Sat by Pulse 100 99 99 Oximetry 12/14/21 12/14/21 12/14/21 05:21 05:26 05:31 Temperature Pulse Rate 86 90 90 Respiratory Rate Blood Pressure Blood Pressure [Left] O2 Sat by Pulse 99 99 98 Oximetry 12/14/21 12/14/21 12/14/21 05:36 05:41 05:46 Temperature Pulse Rate 91 H 101 H 85 Respiratory Rate Blood Pressure Blood Pressure [Left] O2 Sat by Pulse 98 100 98 Oximetry 12/14/21 12/14/21 12/14/21 05:51 05:56 05:58 Temperature Pulse Rate 83 86 86 Respiratory Rate Blood Pressure 118/61 Blood Pressure [Left] O2 Sat by Pulse 98 97 Oximetry 12/14/21 12/14/21 12/14/21 06:01 06:06 06:11 Temperature Pulse Rate 89 90 82 Respiratory Rate Blood Pressure Blood Pressure [Left] O2 Sat by Pulse 97 96 97 Oximetry 12/14/21 12/14/21 12/14/21 06:16 06:21 06:26 Temperature Pulse Rate 96 H 90 94 H Respiratory Rate Blood Pressure Blood Pressure [Left] O2 Sat by Pulse 97 98 98 Oximetry 12/14/21 12/14/21 12/14/21 06:31 06:36 06:41 Temperature Pulse Rate 95 H 89 87 Respiratory Rate Blood Pressure Blood Pressure [Left] O2 Sat by Pulse 97 97 98 Oximetry 12/14/21 12/14/21 12/14/21 06:46 06:51 06:56 Temperature Pulse Rate 84 92 H 104 H Respiratory Rate Blood Pressure Blood Pressure [Left] O2 Sat by Pulse 98 98 98 Oximetry 12/14/21 12/14/21 12/14/21 06:58 07:01 07:06 Temperature Pulse Rate 103 H 92 H 84 Respiratory Rate Blood Pressure 140/80 Blood Pressure [Left] O2 Sat by Pulse 98 97 Oximetry 12/14/21 12/14/21 12/14/21 07:11 07:16 07:21 Temperature Pulse Rate 87 85 82 Respiratory Rate Blood Pressure Blood Pressure [Left] O2 Sat by Pulse 99 99 98 Oximetry 12/14/21 12/14/21 12/14/21 07:26 07:31 07:36 Temperature Pulse Rate 95 H 85 83 Respiratory Rate Blood Pressure Blood Pressure [Left] O2 Sat by Pulse 98 98 98 Oximetry 12/14/21 12/14/21 12/14/21 07:41 07:46 07:51 Temperature Pulse Rate 84 85 84 Respiratory Rate Blood Pressure Blood Pressure [Left] O2 Sat by Pulse 98 98 98 Oximetry 12/14/21 12/14/21 12/14/21 07:56 07:58 08:01 Temperature Pulse Rate 85 80 85 Respiratory Rate Blood Pressure 145/70 Blood Pressure [Left] O2 Sat by Pulse 98 98 Oximetry 12/14/21 12/14/21 12/14/21 08:06 08:11 08:16 Temperature Pulse Rate 87 85 82 Respiratory Rate Blood Pressure Blood Pressure [Left] O2 Sat by Pulse 98 98 98 Oximetry 12/14/21 12/14/21 12/14/21 08:21 08:26 08:31 Temperature Pulse Rate 76 79 79 Respiratory Rate Blood Pressure Blood Pressure [Left] O2 Sat by Pulse 99 99 99 Oximetry 12/14/21 12/14/21 12/14/21 08:36 08:41 08:46 Temperature Pulse Rate 87 89 101 H Respiratory Rate Blood Pressure Blood Pressure [Left] O2 Sat by Pulse 100 100 100 Oximetry 12/14/21 12/14/21 12/14/21 08:51 08:56 08:58 Temperature Pulse Rate 94 H 89 90 Respiratory Rate Blood Pressure 137/75 Blood Pressure [Left] O2 Sat by Pulse 99 99 Oximetry 12/14/21 09:21 Temperature Pulse Rate 114 H Respiratory Rate Blood Pressure Blood Pressure [Left] O2 Sat by Pulse 94 Oximetry - Exam Breasts: deferred Abdomen: Present: soft (gravid ) Uterus: Present: normal (gravid ) Uterine Contraction Monitor Mode: External Uterine Contraction Pattern: Absent Uterine Tone Measurement Phase: Resting - Labs Labs: Abnormal Labs 12/13/21 12/13/21 12/13/21 16:19 16:19 22:18 RBC 2.88 L Hgb 9.6 L Hct 27.7 L MCH 33 H MCHC 35 H RDW 13.0 L POC Glucose 336 H Lactate Dehydrogenase 204 H 12/14/21 12/14/21 12/14/21 02:30 03:50 04:57 RBC Hgb Hct MCH MCHC RDW POC Glucose 334 H 292 H 224 H Lactate Dehydrogenase 12/14/21 08:53 RBC Hgb Hct MCH MCHC RDW POC Glucose 56 L Lactate Dehydrogenase Laboratory Results - last 24 hr 12/13/21 12/13/21 12/13/21 14:00 16:19 16:19 WBC 8.9 RBC 2.88 L Hgb 9.6 L Hct 27.7 L MCV 96 MCH 33 H MCHC 35 H RDW 13.0 L Plt Count 218 Creatinine 0.6 Estimated GFR > 60 POC Glucose Uric Acid 5.0 AST 14 ALT 15 Lactate Dehydrogenase 204 H Urine Color Yellow Urine Turbidity Clear Urine pH 7.0 Ur Specific Alpha 1.011 Urine Protein >500 Urine Glucose (UA) Neg Urine Ketones Neg Urine Blood Neg Urine Nitrite Neg Ur Reducing Substances Not Reportable Urine Bilirubin Neg Urine Ictotest Not Reportable Urine Urobilinogen < 2.0 Ur Leukocyte Esterase Neg Urine WBC (Auto) < 1.0 Urine RBC (Auto) 5.0 U Epithel Cells (Auto) 1.0 Syphilis IgG/IgM Ab Blood Type Antibody Screen 12/13/21 12/13/21 12/14/21 21:40 22:18 02:30 WBC RBC Hgb Hct MCV MCH MCHC RDW Plt Count Creatinine Estimated GFR POC Glucose 336 H 334 H Uric Acid AST ALT Lactate Dehydrogenase Urine Color Urine Turbidity Urine pH Ur Specific Alpha Urine Protein Urine Glucose (UA) Urine Ketones Urine Blood Urine Nitrite Ur Reducing Substances Urine Bilirubin Urine Ictotest Urine Urobilinogen Ur Leukocyte Esterase Urine WBC (Auto) Urine RBC (Auto) U Epithel Cells (Auto) Syphilis IgG/IgM Ab Blood Type O POSITIVE Antibody Screen Negative 12/14/21 12/14/21 12/14/21 03:50 04:09 04:57 WBC RBC Hgb Hct MCV MCH MCHC RDW Plt Count Creatinine Estimated GFR POC Glucose 292 H 224 H Uric Acid AST ALT Lactate Dehydrogenase Urine Color Urine Turbidity Urine pH Ur Specific Alpha Urine Protein Urine Glucose (UA) Urine Ketones Urine Blood Urine Nitrite Ur Reducing Substances Urine Bilirubin Urine Ictotest Urine Urobilinogen Ur Leukocyte Esterase Urine WBC (Auto) Urine RBC (Auto) U Epithel Cells (Auto) Syphilis IgG/IgM Ab Nonreactive Blood Type Antibody Screen 12/14/21 08:53 WBC RBC Hgb Hct MCV MCH MCHC RDW Plt Count Creatinine Estimated GFR POC Glucose 56 L Uric Acid AST ALT Lactate Dehydrogenase Urine Color Urine Turbidity Urine pH Ur Specific Alpha Urine Protein Urine Glucose (UA) Urine Ketones Urine Blood Urine Nitrite Ur Reducing Substances Urine Bilirubin Urine Ictotest Urine Urobilinogen Ur Leukocyte Esterase Urine WBC (Auto) Urine RBC (Auto) U Epithel Cells (Auto) Syphilis IgG/IgM Ab Blood Type Antibody Screen
--- NOTE | 2021-12-14 09:59 | Ultrasound Report ---
ULTRASOUND BIOPHYSICAL PROFILE INDICATION: Diabetes, Chronic HTN. COMPARISON: None available. FINDINGS: breathing movement = 2 Gross body movement = 2 tone = 2 Qualitative amniotic fluid volume = 2 Total biophysical score = 8/8 Amniotic fluid index is 8.7 cm. Presentation is Breech. heart rate is 151 beats per minute. Biparietal diameter 8.1 cm, 32 weeks 4 days Head circumference 28.6 cm, 31 weeks 3 days Abdominal circumference 28.5 cm, 32 weeks 4 days Femur length 6.2 cm, 32 weeks 1 day Estimated weight is 1951 g. No placental abnormalities are seen. The placenta is fundal. IMPRESSION: biophysical profile = 12/15 Amniotic fluid index is normal. Signer Name: Ladarius Roque MD Signed: 12/14/2021 9:54 AM Workstation Name: [id number]
[2021-12-14] MEDS ORDERED: PRENATAL VIT27-FE FUMARATE-FOLIC ACID VIT TAB PO SCH (10:00)
--- NOTE | 2021-12-14 11:26 | Event Note ---
Date: 12/14/21 On-call provider called secondary to heavy vaginal bleeding in this patient. Pt hypotensive. Normal saline infusing. Pt given Methergine 0.2 mg IM. Cytotec 800 mcg per rectum. Code Met team at beside. Fundus above umbilicus and deviated to the left. Gloved hand for vaginal sweep with copious amount of clots removed. Fundus now 3 fingerbreaths below umbilicus. Transfusing 2 units PRBCs. Awaiting repeat CBC, coags and Fibrinogen. Continue to closely monitor patient. QBL 1550 mL.
[2021-12-14] MEDS ORDERED: METHYLERGONOVINE MALEATE 0.2 MG/ML VIAL IM SCH (12:00)
[2021-12-14] MEDS: NIFEdipine XL 30 MG TAB PO SCH (14:04)
[2021-12-14 22:48] VITALS: BP 136/78
[2021-12-15] MEDS: INSULIN REGULAR, HUMAN 100 UNITS/1 ML SUB-Q PRN (06:23)
--- NOTE | 2021-12-15 08:59 | Progress Note ---
Assessment and Plan - Patient Problems (1) Diabetes mellitus affecting Current Visit: Yes Status: Acute Plan to address problem: The patient was instructed several times that abusive language would not be tolerated however she continued to use offensive language. The patient has decided to leave and follow-up with her primary mobile home park manager Subjective - Subjective Date of service: 12/15/21 Principal diagnosis: IUP at 31w2d, Type 1 DM, CHTN Interval history: 21-year-old G1, P0 at 31+2 weeks who was a walk-in admission secondary to being told she had gestational hypertension. Her course is complicated by insulin-dependent diabetes mellitus. Went into evaluate patient this morning for which the patient was highly belligerent and abusive to the provider. Attempted to discuss the plan of care with the patient. She proceeded to use abusive language against the provider. The patient was instructed that it was within her right to leave if she felt her care was an adequate. She continued to use offensive language during the conversation. The provider instructed nursing staff to provide paperwork documenting the patient's request to leave AGAINST MEDICAL ADVICE. Her blood pressures during the admission remains with systolics in the 130s and diastolics in the 80s. [facility] labs were all within normal limits. Her glucose levels have remained elevated however the patient states she has not been using a sliding scale for maintenance of her glucose levels. Extensive discussion was had with the patient's mother who states that the patient left [place] AGAINST MEDICAL ADVICE. Patient reports: new complaints, movement normal, no loss of fluid, no vaginal bleeding, no contractions Objective - Vital Signs Vital Signs: Vital Signs - 12hr 12/14/21 12/14/21 12/14/21 20:57 21:02 21:07 Pulse Rate 86 79 78 Blood Pressure O2 Sat by Pulse 100 99 97 Oximetry 12/14/21 12/14/21 21:12 22:46 Pulse Rate 76 75 Blood Pressure 136/78 O2 Sat by Pulse 98 Oximetry - Labs Labs: Abnormal Labs 12/13/21 12/13/21 12/13/21 16:19 16:19 22:18 RBC 2.88 L Hgb 9.6 L Hct 27.7 L MCH 33 H MCHC 35 H RDW 13.0 L POC Glucose 336 H Lactate Dehydrogenase 204 H 12/14/21 12/14/21 12/14/21 02:30 03:50 04:57 RBC Hgb Hct MCH MCHC RDW POC Glucose 334 H 292 H 224 H Lactate Dehydrogenase 12/14/21 12/14/21 12/14/21 08:53 11:28 22:23 RBC Hgb Hct MCH MCHC RDW POC Glucose 56 L 123 H 210 H Lactate Dehydrogenase 12/15/21 06:07 RBC Hgb Hct MCH MCHC RDW POC Glucose 199 H Lactate Dehydrogenase Laboratory Results - last 24 hr 12/14/21 12/14/21 12/14/21 08:53 11:28 22:23 POC Glucose 56 L 123 H 210 H 12/15/21 06:07 POC Glucose 199 H
== END 2021-12-15 08:22 | disposition left against medical advice (07) ==
LOC: TRG 15:05 → APU 15:06 → LD 12-14 00:41 → TRG 12-15 08:22
PROVIDERS: ATTEND Obstetrics & Gynecology
DX: O14.13 Severe pre-eclampsia, third trimester (principal); O40.3XX0 Polyhydramnios, third trimester, not applicable or unspecified; O10.913 Unspecified pre-existing hypertension complicating pregnancy, third trimester; O24.913 Unspecified diabetes mellitus in pregnancy, third trimester; O99.283 Endocrine, nutritional and metabolic diseases complicating pregnancy, third trimester; E05.80 Other thyrotoxicosis without thyrotoxic crisis or storm; O98.313 Other infections with a predominantly sexual mode of transmission complicating pregnancy, third trimester; A60.00 Herpesviral infection of urogenital system, unspecified; O99.343 Other mental disorders complicating pregnancy, third trimester; F99 Mental disorder, not otherwise specified; F31.9 Bipolar disorder, unspecified; Z79.4 Long term (current) use of insulin; Z3A.31 31 weeks gestation of pregnancy
CPT/HCPCS: 36415; 59025; 76815; 76819; 81001; 82565; 82962; 83615; 84450; 84460; 84550; 85027; 86592; 86850; 86900; 86901; 96360; 96361; 96372; A9270; J7120; Q9967; J1815

== ENCOUNTER 2021-12-19 17:37 | Inpatient (IN) | payer MEDICAID ==
[2021-12-19] MEDS ORDERED: DOCUSATE SODIUM 100 MG CAP PO PRN (22:19)
[2021-12-19] MEDS ORDERED: ACETAMINOPHEN 325 MG TAB PO PRN (22:19)
[2021-12-19] MEDS ORDERED: DEXTROSE 50% IN WATER (25GM) 50 ML SYRINGE IV PRN (22:21)
[2021-12-19] MEDS ORDERED: ONDANSETRON 4 MG/2 ML INJ IV PRN (22:21)
[2021-12-19] MEDS ORDERED: ZOLPIDEM 5 MG TAB PO PRN (22:21)
[2021-12-19] MEDS ORDERED: LACTATED RINGERS 1,000 ML IV SCH (22:30)
[2021-12-19 23:56] LABS: Hematocrit 30.9 % (30.3-42.9); Hemoglobin 10.4 gm/dl (10.1-14.3); Mean Corpuscular HGB Conc 34 % (30-34); Mean Corpuscular Volume 98 fl (79-97); Platelet Count 201 K/mm3 (140-440); Red Blood Count 3.15 M/mm3 (3.65-5.03)
[2021-12-20] MEDS ORDERED: INSULIN REGULAR, HUMAN 100 UNITS/1 ML ONE (03:47)
[2021-12-20] MEDS: INSULIN REGULAR, HUMAN 100 UNITS/1 ML SUB-Q SCH ×3 (04:02→23:33)
[2021-12-20] MEDS: INSULIN NPH, HUMAN 100 UNIT/1 ML SUB-Q SCH ×2 (08:31→23:33)
--- NOTE | 2021-12-20 10:58 | Consultation ---
History of Present Illness Consult date: 12/20/21 Past History - Obstetrical History : 1 Medications and Allergies Allergies Allergy/AdvReac Type Severity Reaction Status Date / Time azithromycin [From Zithromax] Allergy Rash Verified 08/24/13 07:30 latex Allergy Itching Verified 12/19/21 18:24 Home Medications Medication Instructions Recorded Confirmed Last Taken Type Insulin Regular, Human 12 units SUB-Q BID 12/19/21 12/19/21 12/19/21 History Lantus VIAL 30 units SUB-Q BID 12/19/21 12/19/21 12/19/21 History Tablet 1 tab PO DAILY 12/19/21 12/19/21 12/19/21 History Wellbutrin 1 tab PO DAILY 12/19/21 12/19/21 12/15/21 History Active Meds: Active Medications Acetaminophen (Acetaminophen 325 Mg Tab) 650 mg PO Q4H PRN PRN Reason: Pain MILD(1-3)/Fever >100.5/MARROQUIN Dextrose (Dextrose 50% In Water (25gm) 50 Ml Syringe) 50 ml IV Q30MIN PRN; Protocol PRN Reason: Hypoglycemia Docusate Sodium (Docusate Sodium 100 Mg Cap) 100 mg PO Q12H PRN PRN Reason: Constipation Lactated Ringer's (Lactated Ringers) 1,000 mls @ 50 mls/hr IV DIRECT PENDING SALE TO [facility] Insulin Human NPH (Insulin Nph, Human 100 Unit/1 Ml) 30 unit SUB-Q QDDIAB [facility]END[facility] TO [facility] Last Admin: 12/20/21 08:31 Dose: Not Given Insulin Human NPH (Insulin Nph, Human 100 Unit/1 Ml) 30 unit SUB-Q QPMDIAB [facility]END[facility] TO [facility] Insulin Human Regular (Insulin Regular, Human 100 Units/1 Ml) 12 units SUB-Q QDDIAB [facility] TO [facility] Last Admin: 12/20/21 08:08 Dose: 12 units Insulin Human Regular (Insulin Regular, Human 100 Units/1 Ml) 20 units SUB-Q QPMDIAB [facility]END[facility] TO [facility] Insulin Human Regular (Insulin Regular, Human 100 Units/1 Ml) 0 units SUB-Q QHS [facility] TO [facility]; Protocol Last Admin: 12/20/21 04:02 Dose: 2 units Insulin Human Regular (Insulin Regular, Human 100 Units/1 Ml) 2 units SUB-Q ONCE ONE Stop: 12/20/21 11:31 Last Admin: 12/20/21 10:36 Dose: 2 units Multivitamins/Iron/Calcium ( Mbw83-Lr Fumarate-Folic Acid Vit Tab) 1 each PO QDAY [facility] Ondansetron HCl (Ondansetron 4 Mg/2 Ml Inj) 4 mg IV Q6H PRN PRN Reason: Nausea And Vomiting Zolpidem Tartrate (Zolpidem 5 Mg Tab) 5 mg PO QHS PRN PRN Reason: Sleep - Vital Signs Vital signs: Vital Signs Pulse BP 88 131/81 12/19/21 18:16 12/19/21 18:16 Temp Pulse Resp BP Pulse Ox 98.4 F 39 L 20 131/76 83 L 12/20/21 08:32 12/20/21 10:37 12/20/21 08:32 12/20/21 09:41 12/20/21 10:37 Results Result Diagrams: 12/19/21 18:30 Abnormal lab results 12/19/21 12/19/21 12/20/21 Range/Units 18:30 18:42 03:42 RBC 3.15 L (3.65-5.03) M/mm3 MCV 98 H (79-97) fl MCH 33 H (28-32) pg RDW 13.0 L (13.2-15.2) % POC Glucose 238 H 177 H (70-105) mg/dL 12/20/21 12/20/21 Range/Units 07:41 09:58 RBC (3.65-5.03) M/mm3 MCV (79-97) fl MCH (28-32) pg RDW (13.2-15.2) % POC Glucose 142 H 149 H (70-105) mg/dL All other labs normal. Assessment and Plan Full consult on chart 21 yo G1 at 32 1/7 weeks gestation, Type I DM, CHTN with superimposed preeclampsia admitted for glycemic control Insulin regimen that was ordered on her arrival was NPH 30units BID Reg 12 units BID She refused the morning NPH and took the Regular insulin Accuchecks : 12/19: 238mg/dl 12/20 177 , 142, 149mg/dl Seen at [facility] yesterday Med record release was submitted to [place] She received a course of BMZ on that admission [facility] US 12/19 SIUP breech GENE 15.6cm Posterior placenta EFW 4lb 1 oz 32% 12/19/21: 10.4/30.9<201 A: IUP at 32 1/7 weeks gestation Uncontrolled Type I DM CHTN with superimposed preeclampsia Rec: 1. Continue to monitor for worsening maternal HTN , distress 2. No indication for antihypertensive treatment at this time Initiate IV Hydralazine or Labetalol prn SBP>/=160mmhg, DBP>/=110mmhg Records from [place] were requested in the office yesterday 3. Continue AM : NPH 30u Reg 12u PM NPH 30 u Reg 12 u ADA diet ,three meals/three snacks She reports that she does not like the food at the hospital because it is not what she typically eats Nutritional consult was ordered to review the ADA diet Goal is to maintain the fasting <95mg/dl, 2 hr PP <120mg/dl PP regular insulin sliding scale : for Blood sugar <120 - no insulin Blood sugar 121-150 give 4 units regular insulin Blood sugar 151-180 give 6 units regular insulin Blood sugar 181-210 give 10 units regular insulin She asked how long she would need to stay. Advised that her cooperation and compliance with her insulin and diet are necessary to ensure adequate glycemic control and reduce the risk of distress, demise. She is a candidate for continuation of outpt management if adequate glycemic control can be achieved, HTN remains stable and status remains reassuring RN instructed to administer 2 units of RISS to cover her blood sugar and to provide the patient with a PP snack 3. CMP and HgA1c ordered Check the CBC/CMP q 3-4 days to monitor for end organ damage , HELLP 4. Twice weekly BPP 5. Delivery is recommended at 34 0/7 -37 0/7 weeks gestation based on the maternal/ status
[2021-12-20] MEDS ORDERED: INSULIN REGULAR, HUMAN 100 UNITS/1 ML SUB-Q ONE (11:30)
[2021-12-20 11:39] LABS: Alanine Aminotransferase 10 units/L (7-56); Albumin 2.9 g/dL (3.9-5); Blood Urea Nitrogen 10 mg/dL (7-17); Calcium 8.5 mg/dL (8.4-10.2); Hemolysis Index 13
[2021-12-20 11:44] LABS: BUN/Creatinine Ratio 17
--- NOTE | 2021-12-20 12:50 | History and Physical Report ---
History of Present Illness Date of examination: 12/20/21 Chief complaint: Sent from [facility] clinic for blood sugar control History of present illness: Pt is a 21 year old -[place] primigravida LISANDRO 02/13/[birth year] at 32w1d who presented on 12/19/21 for inpatient assistance for glucose control. She has had multiple hospitalizations over the past month. She was initially hospitalized at [facility] where she was diagnosed with chronic hypertension with superimposed preeclampsia and left against medical advice. She went home for a few days, and was admitted here at [facility] for glucose control, then left again medical advice again. She reports begin unhappy that the provider who takes care of her mother was taking care of her as well, though she does not state a reason for that concern. She has had limited care at [facility] since 10 wks complicated by Type 1 Diabetes, Chronic HTN with superimposed preeclampsia, genital herpes without lesion or prodrome, LSIL pap smear, polyhydramnios, subclinicaal hyperthyroidism, and GBS status is unknown. During this admission, pt has stopped answering questions though she remains awake and alert. 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: abnormal PAP smear (LSIL), herpes (no lesion or prodrome ) Family/Genetic History: diabetes, hypertension, other (asthma ) Social history: no significant social history, other (depression, h/o bipolar disorder but pt denies it presently ) - Obstetrical History Expected Date of Delivery: 02/13/22 Actual Gestation: 32 Week(s) 1 Day(s) : 1 Medications and Allergies Allergies Allergy/AdvReac Type Severity Reaction Status Date / Time azithromycin [From Zithromax] Allergy Rash Verified 08/24/13 07:30 latex Allergy Itching Verified 12/19/21 18:24 Home Medications Medication Instructions Recorded Confirmed Last Taken Type Insulin Regular, Human 12 units SUB-Q BID 12/19/21 12/19/21 12/19/21 History Lantus VIAL 30 units SUB-Q BID 12/19/21 12/19/21 12/19/21 History Tablet 1 tab PO DAILY 12/19/21 12/19/21 12/19/21 History Wellbutrin 1 tab PO DAILY 12/19/21 12/19/2122 History Active Meds: Active Medications Acetaminophen (Acetaminophen 325 Mg Tab) 650 mg PO Q4H PRN PRN Reason: Pain MILD(1-3)/Fever >100.5/MARROQUIN Dextrose (Dextrose 50% In Water (25gm) 50 Ml Syringe) 50 ml IV Q30MIN PRN; Protocol PRN Reason: Hypoglycemia Docusate Sodium (Docusate Sodium 100 Mg Cap) 100 mg PO Q12H PRN PRN Reason: Constipation Lactated Ringer's (Lactated Ringers) 1,000 mls @ 50 mls/hr IV DIRECT [facility] Insulin Human NPH (Insulin Nph, Human 100 Unit/1 Ml) 30 unit SUB-Q QDDIAB [facility] Last Admin: 12/20/21 08:31 Dose: Not Given Insulin Human NPH (Insulin Nph, Human 100 Unit/1 Ml) 30 unit SUB-Q QPMDIAB [facility] Insulin Human Regular (Insulin Regular, Human 100 Units/1 Ml) 12 units SUB-Q QDDIAB [facility] Last Admin: 12/20/21 08:08 Dose: 12 units Insulin Human Regular (Insulin Regular, Human 100 Units/1 Ml) 20 units SUB-Q QPMDIAB [facility] Insulin Human Regular (Insulin Regular, Human 100 Units/1 Ml) 0 units SUB-Q QHS [facility]; Protocol Last Admin: 12/20/21 04:02 Dose: 2 units Multivitamins/Iron/Calcium ( Neu21-Og Fumarate-Folic Acid Vit Tab) 1 each PO QDAY [facility] Ondansetron HCl (Ondansetron 4 Mg/2 Ml Inj) 4 mg IV Q6H PRN PRN Reason: Nausea And Vomiting Zolpidem Tartrate (Zolpidem 5 Mg Tab) 5 mg PO QHS PRN PRN Reason: Sleep Review of Systems All systems: negative - Vital Signs Vital signs: Vital Signs Pulse BP 88 131/81 12/19/21 18:16 12/19/21 18:16 Temp Pulse Resp BP Pulse Ox 98.4 F 39 L 20 131/76 83 L 12/20/21 08:32 12/20/21 10:37 12/20/21 08:32 12/20/21 09:41 12/20/21 10:37 - Physical Exam Breasts: Positive: deferred Abdomen: Positive: soft (gravid ) Uterus: Positive: enlarged (gravid ) Results Result Diagrams: 12/19/21 18:30 12/20/21 10:52 Abnormal lab results 12/19/21 12/19/21 12/20/21 Range/Units 18:30 18:42 03:42 RBC 3.15 L (3.65-5.03) M/mm3 MCV 98 H (79-97) fl MCH 33 H (28-32) pg RDW 13.0 L (13.2-15.2) % POC Glucose 238 H 177 H (70-105) mg/dL Total Protein (6.3-8.2) g/dL Albumin (3.9-5) g/dL 12/20/21 12/20/21 12/20/21 Range/Units 07:41 09:58 10:52 RBC (3.65-5.03) M/mm3 MCV (79-97) fl MCH (28-32) pg RDW (13.2-15.2) % POC Glucose 142 H 149 H (70-105) mg/dL Total Protein 5.4 L (6.3-8.2) g/dL Albumin 2.9 L (3.9-5) g/dL All other labs normal. Assessment and Plan A: IUP at 32w1d Chronic HTN with pt reported diagnosis of superimposed preeclampsia, records still unavailable for review Type 1 Diabetes Genital Herpes GBS Unknown P: MFM recommendations noted and appreciated Continue glucose monitoring Change diet to vegetarian diet with no scrambled eggs or bread per pt request Continue to monitor maternal and status Consider psych consult
[2021-12-20] MEDS ORDERED: INSULIN REGULAR, HUMAN 100 UNITS/1 ML SUB-Q SCH (17:00)
[2021-12-20] MEDS: PRENATAL VIT27-FE FUMARATE-FOLIC ACID VIT TAB PO SCH (17:39)
[2021-12-21] MEDS: INSULIN NPH, HUMAN 100 UNIT/1 ML SUB-Q SCH ×2 (08:00→22:13)
[2021-12-21] MEDS: INSULIN REGULAR, HUMAN 100 UNITS/1 ML SUB-Q SCH (08:02)
[2021-12-21] MEDS: PRENATAL VIT27-FE FUMARATE-FOLIC ACID VIT TAB PO SCH (10:27)
--- NOTE | 2021-12-21 10:44 | Progress Note ---
Assessment and Plan A: IUP at 32w2d Chronic HTN with pt reported diagnosis of superimposed preeclampsia, records still unavailable for review Type 1 Diabetes Bipolar Disorder Depression Genital Herpes GBS Unknown P: MFM recommendations noted and appreciated Continue glucose monitoring Change diet to vegetarian diet with no scrambled eggs or bread per pt request Continue to monitor maternal and status Subjective - Subjective Date of service: 12/21/21 Principal diagnosis: IUP at 32 wks, Type I DM, Bipolar Disorder Interval history: No complaints overnight. Pt did not eat two of her meals yesterday. Patient reports: movement normal, no new complaints, no loss of fluid, no vaginal bleeding, no contractions Objective - Vital Signs Vital Signs: Vital Signs - 12hr 12/20/21 12/20/21 12/21/21 23:12 23:14 08:25 Temperature 98.4 F 98.5 F Pulse Rate 83 79 Respiratory 17 Rate Blood Pressure 148/85 121/68 O2 Sat by Pulse Oximetry 12/21/21 12/21/21 12/21/21 08:29 08:34 08:39 Temperature Pulse Rate 99 H 105 H 100 H Respiratory Rate Blood Pressure O2 Sat by Pulse 100 99 99 Oximetry 12/21/21 12/21/21 12/21/21 08:44 08:49 08:54 Temperature Pulse Rate 91 H 108 H 117 H Respiratory Rate Blood Pressure O2 Sat by Pulse 99 99 99 Oximetry 12/21/21 12/21/21 08:59 09:00 Temperature Pulse Rate 108 H 93 H Respiratory Rate Blood Pressure O2 Sat by Pulse 99 82 L Oximetry - Exam Breasts: deferred Abdomen: Present: soft (gravid ) Uterus: Present: normal (gravid ) FHR: auscultation normal Uterine Contraction Monitor Mode: External Uterine Contraction Pattern: Absent Uterine Tone Measurement Phase: Resting Extremities: normal - Labs Labs: Abnormal Labs 12/19/21 12/19/21 12/20/21 18:30 18:42 02:35 RBC 3.15 L MCV 98 H MCH 33 H RDW 13.0 L POC Glucose 238 H Total Protein Albumin Ur Total Protein 24 Hr 4000.00 H Urine Total Protein 200 H 12/20/21 12/20/21 12/20/21 03:42 07:41 09:58 RBC MCV MCH RDW POC Glucose 177 H 142 H 149 H Total Protein Albumin Ur Total Protein 24 Hr Urine Total Protein 12/20/21 12/20/21 12/20/21 10:52 17:30 23:09 RBC MCV MCH RDW POC Glucose 130 H 195 H Total Protein 5.4 L Albumin 2.9 L Ur Total Protein 24 Hr Urine Total Protein 12/21/21 12/21/21 05:57 10:22 RBC MCV MCH RDW POC Glucose 49 L 115 H Total Protein Albumin Ur Total Protein 24 Hr Urine Total Protein Laboratory Results - last 24 hr 12/20/21 12/20/21 12/20/21 02:35 10:52 17:30 Sodium 138 Potassium 3.9 Chloride 104.1 Carbon Dioxide 22 Anion Gap 16 BUN 10 Creatinine 0.6 Estimated GFR > 60 BUN/Creatinine Ratio 17 Glucose 91 POC Glucose 130 H Calcium 8.5 Total Bilirubin 0.30 AST 10 ALT 10 Alkaline Phosphatase 81 Total Protein 5.4 L Albumin 2.9 L Albumin/Globulin Ratio 1.2 Urine Total Volume 2000 Ur Total Protein 24 Hr 4000.00 H Urine Total Protein 200 H 12/20/21 12/21/21 12/21/21 23:09 05:57 06:43 Sodium Potassium Chloride Carbon Dioxide Anion Gap BUN Creatinine Estimated GFR BUN/Creatinine Ratio Glucose POC Glucose 195 H 49 L 92 Calcium Total Bilirubin AST ALT Alkaline Phosphatase Total Protein Albumin Albumin/Globulin Ratio Urine Total Volume Ur Total Protein 24 Hr Urine Total Protein 12/21/21 10:22 Sodium Potassium Chloride Carbon Dioxide Anion Gap BUN Creatinine Estimated GFR BUN/Creatinine Ratio Glucose POC Glucose 115 H Calcium Total Bilirubin AST ALT Alkaline Phosphatase Total Protein Albumin Albumin/Globulin Ratio Urine Total Volume Ur Total Protein 24 Hr Urine Total Protein
[2021-12-21] MEDS: buPROPion XL 150 MG TAB PO SCH (12:54)
[2021-12-22] MEDS: INSULIN REGULAR, HUMAN 100 UNITS/1 ML SUB-Q SCH (08:15)
[2021-12-22] MEDS: INSULIN NPH, HUMAN 100 UNIT/1 ML SUB-Q SCH ×2 (08:38→17:00)
--- NOTE | 2021-12-22 08:39 | Progress Note ---
Assessment and Plan - Patient Problems (1) Chronic hypertension affecting Current Visit: Yes Status: Acute Plan to address problem: Will continue plan of aggressive glucose management Defer to [facility] for management (2) Type 1 diabetes mellitus Current Visit: Yes Status: Acute (3) Diabetes mellitus affecting Current Visit: No Status: Acute Subjective - Subjective Date of service: 12/22/21 Principal diagnosis: IUP at 32 wks, Type I DM, Bipolar Disorder Interval history: 21-year-old G1, P0 at 32+2 weeks admitted for uncontrolled type 1 diabetes mellitus. The patient reports not eating her diet on a regular basis secondary to taste. Yesterday she experienced occasional hypoglycemic episodes. This a.m. her fasting is 82. 24-hour urine collection revealed 4 g of protein. Blood pressures have remained normotensive along with remainder of [facility] labs. Unable to determine at this point if patient has longstanding renal disease secondary to her type 1 diabetes. Patient reports: movement normal, no new complaints, no loss of fluid, no vaginal bleeding, no contractions Objective - Vital Signs Vital Signs: Vital Signs - 12hr 12/21/21 12/22/21 12/22/21 22:17 00:17 00:21 Temperature Pulse Rate 73 100 H Blood Pressure 134/79 O2 Sat by Pulse 84 Oximetry O2 Sat by Pulse 98 Oximetry [ Posterior Bilateral Throughout] 12/22/21 12/22/21 12/22/21 00:22 00:24 00:27 Temperature 98.6 F Pulse Rate 103 H 91 H Blood Pressure O2 Sat by Pulse 100 100 Oximetry O2 Sat by Pulse Oximetry [ Posterior Bilateral Throughout] 12/22/21 12/22/21 12/22/21 00:32 00:37 00:42 Temperature Pulse Rate 122 H 108 H 99 H Blood Pressure O2 Sat by Pulse 100 100 99 Oximetry O2 Sat by Pulse Oximetry [ Posterior Bilateral Throughout] 12/22/21 12/22/21 12/22/21 06:04 06:10 06:14 Temperature 98.4 F Pulse Rate 127 H 101 H Blood Pressure 132/84 O2 Sat by Pulse 84 Oximetry O2 Sat by Pulse Oximetry [ Posterior Bilateral Throughout] - Labs Labs: Abnormal Labs 12/19/21 12/19/21 12/20/21 18:30 18:42 02:35 RBC 3.15 L MCV 98 H MCH 33 H RDW 13.0 L POC Glucose 238 H Total Protein Albumin Ur Total Protein 24 Hr 4000.00 H Urine Total Protein 200 H 12/20/21 12/20/21 12/20/21 03:42 07:41 09:58 RBC MCV MCH RDW POC Glucose 177 H 142 H 149 H Total Protein Albumin Ur Total Protein 24 Hr Urine Total Protein 12/20/21 12/20/21 12/20/21 10:52 17:30 23:09 RBC MCV MCH RDW POC Glucose 130 H 195 H Total Protein 5.4 L Albumin 2.9 L Ur Total Protein 24 Hr Urine Total Protein 12/21/21 12/21/21 12/21/21 05:57 10:22 12:48 RBC MCV MCH RDW POC Glucose 49 L 115 H 34 L Total Protein Albumin Ur Total Protein 24 Hr Urine Total Protein 12/21/21 12/21/21 12/21/21 14:09 15:15 17:42 RBC MCV MCH RDW POC Glucose 69 L 64 L 42 L Total Protein Albumin Ur Total Protein 24 Hr Urine Total Protein 12/21/21 12/22/21 20:11 00:22 RBC MCV MCH RDW POC Glucose 162 H 140 H Total Protein Albumin Ur Total Protein 24 Hr Urine Total Protein Laboratory Results - last 24 hr 12/21/21 12/21/21 12/21/21 10:22 10:30 12:48 POC Glucose 115 H 34 L SARS-CoV-2 (PCR) Negative 12/21/21 12/21/21 12/21/21 13:22 14:09 15:15 POC Glucose 71 69 L 64 L SARS-CoV-2 (PCR) 12/21/21 12/21/21 12/22/21 17:42 20:11 00:22 POC Glucose 42 L 162 H 140 H SARS-CoV-2 (PCR) 12/22/21 06:12 POC Glucose 89 SARS-CoV-2 (PCR)
[2021-12-22] MEDS: buPROPion XL 150 MG TAB PO SCH (10:12)
[2021-12-22] MEDS: PRENATAL VIT27-FE FUMARATE-FOLIC ACID VIT TAB PO SCH (10:13)
[2021-12-22 17:01] VITALS: BP 138/80
--- NOTE | 2021-12-22 18:22 | Progress Note ---
Assessment and Plan 1. IUP at 32 3/7 weeks' 2. IDDM, Type 1 3. CHTN with possible supeimposed preeclampsia vs diabetic nephropathy 4. Maternal bipolar D/O 1.Home 2. Continue current insulin dose 3. Twice weekly maternal and surveillance 4. Deliver by 37 0/7 weeks' Subjective - Subjective Date of service: 12/22/21 Principal diagnosis: IUP at 32 wks, Type I DM, Bipolar Disorder Interval history: Feeling well, fetus active Patient reports: movement normal, no new complaints, no loss of fluid, no vaginal bleeding, no contractions Objective - Vital Signs Vital Signs: Vital Signs - 12hr 12/22/21 12/22/21 12/22/21 10:21 10:22 10:23 Temperature 98.9 F Pulse Rate 90 90 87 Respiratory 16 Rate Blood Pressure 145/84 142/83 Blood Pressure 142/83 [Right] O2 Sat by Pulse Oximetry [ Posterior Bilateral Throughout] 12/22/21 12/22/21 10:25 17:00 Temperature Pulse Rate 90 Respiratory Rate Blood Pressure 138/80 Blood Pressure [Right] O2 Sat by Pulse 98 Oximetry [ Posterior Bilateral Throughout] - Exam Narrative Exam: Abd soft, nontender; FHT's reassuring earlier; Accucheks reviewed - Labs Labs: Abnormal Labs 12/19/21 12/19/21 12/20/21 18:30 18:42 02:35 RBC 3.15 L MCV 98 H MCH 33 H RDW 13.0 L POC Glucose 238 H Hemoglobin A1c Total Protein Albumin Ur Total Protein 24 Hr 4000.00 H Urine Total Protein 200 H 12/20/21 12/20/21 12/20/21 03:42 07:27 07:41 RBC MCV MCH RDW POC Glucose 177 H 142 H Hemoglobin A1c 8.2 H Total Protein Albumin Ur Total Protein 24 Hr Urine Total Protein 12/20/21 12/20/21 12/20/21 09:58 10:52 17:30 RBC MCV MCH RDW POC Glucose 149 H 130 H Hemoglobin A1c Total Protein 5.4 L Albumin 2.9 L Ur Total Protein 24 Hr Urine Total Protein 12/20/21 12/21/21 12/21/21 23:09 05:57 10:22 RBC MCV MCH RDW POC Glucose 195 H 49 L 115 H Hemoglobin A1c Total Protein Albumin Ur Total Protein 24 Hr Urine Total Protein 12/21/21 12/21/21 12/21/21 12:48 14:09 15:15 RBC MCV MCH RDW POC Glucose 34 L 69 L 64 L Hemoglobin A1c Total Protein Albumin Ur Total Protein 24 Hr Urine Total Protein 12/21/21 12/21/21 12/22/21 17:42 20:11 00:22 RBC MCV MCH RDW POC Glucose 42 L 162 H 140 H Hemoglobin A1c Total Protein Albumin Ur Total Protein 24 Hr Urine Total Protein 12/22/21 15:00 RBC MCV MCH RDW POC Glucose 20 L Hemoglobin A1c Total Protein Albumin Ur Total Protein 24 Hr Urine Total Protein Laboratory Results - last 24 hr 12/20/21 12/21/21 12/22/21 07:27 20:11 00:22 POC Glucose 162 H 140 H Hemoglobin A1c 8.2 H 12/22/21 12/22/21 12/22/21 06:12 10:18 15:00 POC Glucose 89 81 20 L Hemoglobin A1c 12/22/21 16:04 POC Glucose 95 Hemoglobin A1c
== END 2021-12-22 18:51 | disposition home or self-care (01) | DRG 781 ==
LOC: TRG 17:37 → LD 17:39 → TRG 22:19
PROVIDERS: ADMIT Obstetrics & Gynecology; ATTEND Obstetrics & Gynecology
DX: O24.013 Pre-existing type 1 diabetes mellitus, in pregnancy, third trimester (principal); O99.413 Diseases of the circulatory system complicating pregnancy, third trimester; O24.913 Unspecified diabetes mellitus in pregnancy, third trimester; Z20.822 Contact with and (suspected) exposure to COVID-19; O98.313 Other infections with a predominantly sexual mode of transmission complicating pregnancy, third trimester; A60.00 Herpesviral infection of urogenital system, unspecified; O16.3 Unspecified maternal hypertension, third trimester; O14.94 Unspecified pre-eclampsia, complicating childbirth; Z3A.32 32 weeks gestation of pregnancy; Z91.040 Latex allergy status; Z91.09 Other allergy status, other than to drugs and biological substances
CPT/HCPCS: 36415; 82962; 85027; 86850; 86900; 86901; G0378; J2354; Q9967; J1815

== ENCOUNTER 2022-01-13 11:01 | Outpatient (CLI) | payer MEDICAID ==
[2022-01-13] MEDS ORDERED: LACTATED RINGERS 1,000 ML IV ONE (12:00)
[2022-01-13 14:48] VITALS: BP 177/91
--- NOTE | 2022-01-13 15:42 | Ultrasound Report ---
ULTRASOUND OBSTETRIC INDICATION / CLINICAL INFORMATION: well-being. - Clinical Gestational Age (GA) in weeks, days: 35, 4 TECHNIQUE: Transabdominal. COMPARISON: 12/13/21. FINDINGS: Single intrauterine . Biparietal Diameter = 8.7 cm = 35, 0 weeks, days Head Circumference = 31.6 cm = 35, 3 weeks, days Abdominal Circumference = 30.6 cm = 34, 4 weeks, days Femur Length = 6.0 cm = 31, 3 weeks, days Average Ultrasound Age (AUA) = 34, 1 weeks, days Heart Rate: 157 beats per minute. Estimated Weight in grams (if calculated): 2281 +/- 338. Estimated Weight Growth Percentile (if calculated): 66% Position: cephalic. Cervix: closed. Length in cm (if measured): Placenta: Posterior, grade 2 and free of the os. Amniotic Fluid Volume: normal Amniotic Fluid Index (GENE) in cm (if calculated): 17.4. Maternal Adnexa: No significant abnormality. IMPRESSION: Single, living intrauterine with estimated sonographic age of 34, 1 weeks, days . ULTRASOUND BIOPHYSICAL PROFILE INDICATION / CLINICAL INFORMATION: well-being. COMPARISON: None available. FINDINGS: BREATHING MOVEMENT = 0 GROSS BODY MOVEMENT = 2 TONE = 2 QUALITATIVE AMNIOTIC FLUID VOLUME = 2 TOTAL BIOPHYSICAL SCORE = /8 AMNIOTIC FLUID INDEX (cm) = 17.4 PRESENTATION: Cephalic. HEART RATE (beats per minute): 152 IMPRESSION: biophysical profile = 10/15 Signer Name: Austin Ocampo MD Signed: 01/13/2022 3:38 PM Workstation Name: [employer]
== END 2022-01-13 14:50 | disposition home or self-care (01) ==
LOC: TRG 11:01 → APU 11:03 → TRG 14:50
PROVIDERS: ATTEND Obstetrics & Gynecology
DX: Z34.93 Encounter for supervision of normal pregnancy, unspecified, third trimester (principal); Z3A.35 35 weeks gestation of pregnancy
CPT/HCPCS: 59025; 76816; 76819

== ENCOUNTER 2022-01-14 14:40 | Inpatient (IN) | payer MEDICAID ==
[2022-01-14] MEDS ORDERED: LACTATED RINGERS 1,000 ML ONE (16:23)
[2022-01-14] MEDS ORDERED: fentaNYL 100 MCG/2 ML INJ IV PRN (16:52)
[2022-01-14] MEDS ORDERED: LIDOCAINE (2%) 20 MG/1 ML VIAL 20 ML MDV INFILTRATI ONE (16:52)
[2022-01-14] MEDS ORDERED: LOPERAMIDE 2 MG CAP PO PRN (16:52)
[2022-01-14] MEDS ORDERED: ACETAMINOPHEN 325 MG TAB PO PRN (16:52)
[2022-01-14] MEDS ORDERED: METHYLERGONOVINE MALEATE 0.2 MG/ML VIAL IM PRN (16:52)
[2022-01-14] MEDS ORDERED: TERBUTALINE 1 MG/1 ML INJ SUB-Q PRN (16:52)
[2022-01-14] MEDS ORDERED: OXYTOCIN 10 UNIT/1 ML INJ IM PRN (16:52)
[2022-01-14] MEDS ORDERED: ePHEDrine SULFATE 50 MG/1 ML INJ IV PRN (16:52)
[2022-01-14] MEDS ORDERED: ONDANSETRON 4 MG/2 ML INJ IV PRN (16:52)
[2022-01-14] MEDS ORDERED: DINOPROSTONE 10 MG VAG SUPP VG ONE (16:52)
[2022-01-14] MEDS ORDERED: miSOPROStol 200 MCG TAB PR PRN (16:52)
[2022-01-14] MEDS ORDERED: MINERAL OIL 30 ML ORAL LIQD PO PRN (16:52)
[2022-01-14] MEDS ORDERED: CARBOPROST TROMETHAMINE 250 MCG/1 ML INJ IM PRN (16:52)
[2022-01-14] MEDS ORDERED: OXYTOCIN DRIP 30 UNITS/500 ML BAG IV SCH (17:00)
[2022-01-14 17:34] LABS: Hematocrit 30.3 % (30.3-42.9); Hemoglobin 10.3 gm/dl (10.1-14.3); Mean Corpuscular HGB Conc 34 % (30-34); Mean Corpuscular Volume 98 fl (79-97); Platelet Count 182 K/mm3 (140-440); Red Blood Count 3.11 M/mm3 (3.65-5.03); Red Cell Distribution Width 13.1 % (13.2-15.2)
[2022-01-14] MEDS ORDERED: miSOPROStol 25 MCG TAB PO SCH (18:00)
[2022-01-14] MEDS ORDERED: DEXTROSE 50% IN WATER (25GM) 50 ML SYRINGE IV PRN (18:34)
[2022-01-15] MEDS ORDERED: INSULIN REGULAR, HUMAN 100 UNITS/1 ML ONE (02:57)
[2022-01-15] MEDS: BUTORPHANOL 2 MG/1 ML INJ IV PRN ×2 (08:00→13:41)
--- NOTE | 2022-01-15 08:21 | History and Physical Report ---
History of Present Illness Date of examination: 01/15/22 Date of admission: 01/14/22 16:52 Chief complaint: Induction of labor History of present illness: 22-year-old at 35+6 weeks presents for induction of labor. Patient's course was initiated in first trimester of the . Her course has been significantly complicated by history of chronic hypertension and insulin-dependent diabetes. The patient has remained noncompliant throughout her to the point of being abusive to her care providers. She is continue to not follow-up for her antepartum testing on a regular basis. She has been adverse to any supervision of her medical management of her diabetes. Per recommendation of [facility] for delivery between 34 and 37 weeks estimated gestational age. The patient had a lapse in care from 22 to 32 weeks in her . Past History Past Medical History: hypertension, diabetes, other (Bipolar disorder) Past Surgical History: no surgical history Social history: single - Obstetrical History Expected Date of Delivery: 02/13/22 Actual Gestation: 35 Week(s) 6 Day(s) : 1 Para: 0 Hx # Term Pregnancies: 0 Number of Pregnancies: 0 Spontaneous Abortions: 0 Induced : 0 Number of Living Children: 0 Medications and Allergies Allergies Allergy/AdvReac Type Severity Reaction Status Date / Time azithromycin [From Zithromax] Allergy Rash Verified 08/24/13 07:30 latex Allergy Itching Verified 12/19/21 18:24 Home Medications Medication Instructions Recorded Confirmed Last Taken Type Insulin Regular, Human 12 units SUB-Q BID 12/19/21 12/19/21 12/19/21 History Lantus VIAL 30 units SUB-Q BID 12/19/21 12/19/21 12/19/21 History Tablet 1 tab PO DAILY 12/19/21 12/19/21 12/19/21 History Wellbutrin 1 tab PO DAILY 12/19/21 12/19/21 12/15/21 History Active Meds: Active Medications Acetaminophen (Acetaminophen 325 Mg Tab) 650 mg PO Q4H PRN PRN Reason: Pain, Mild (1-3) Butorphanol Tartrate (Butorphanol 2 Mg/1 Ml Inj) 2 mg IV Q2H PRN PRN Reason: Pain , Severe (7-10) Butorphanol Tartrate (Butorphanol 2 Mg/1 Ml Inj) 1 mg IV Q2H PRN PRN Reason: Pain, Moderate(4-6) LABOR PAIN Last Admin: 01/15/22 08:00 Dose: 1 mg Carboprost Tromethamine (Carboprost Tromethamine 250 Mcg/1 Ml Inj) 250 mcg IM ONCE PRN PRN Reason: Uterine Bleeding Dextrose (Dextrose 50% In Water (25gm) 50 Ml Syringe) 50 ml IV Q30MIN PRN; Protocol PRN Reason: Hypoglycemia Ephedrine Sulfate (Ephedrine Sulfate 50 Mg/1 Ml Inj) 10 mg IV Q2M PRN PRN Reason: Hypotension Fentanyl (Fentanyl 100 Mcg/2 Ml Inj) 100 mcg IV Q2H PRN PRN Reason: Pain,Severe (7-10) LABOR PAIN Oxytocin/Sodium Chloride (Pitocin/Ns 30 Unit/500ml) 30 units in 500 mls @ 2 mls/hr IV TITR CLRAE; Protocol Lactated Ringer's (Lactated Ringers) 1,000 mls @ 125 mls/hr IV DIRECT CLARE Oxytocin/Sodium Chloride (Pitocin/Ns 30 Unit/500ml) 30 units in 500 mls @ 40 mls/hr IV TITR CLARE; Protocol Insulin Human Regular (Insulin Regular, Human 100 Units/1 Ml) 0 units SUB-Q Q6H CLARE; Protocol Labetalol HCl (Labetalol 200 Mg Tab) 300 mg PO BID CLARE Last Admin: 01/14/22 21:50 Dose: 300 mg Loperamide HCl (Loperamide 2 Mg Cap) 2 mg PO ONCE PRN PRN Reason: give with Hemabate Methylergonovine Maleate (Methylergonovine Maleate 0.2 Mg/Ml Vial) 0.2 mg IM ONCE PRN PRN Reason: Uterine Bleeding Mineral Oil (Mineral Oil 30 Ml Oral Liqd) 30 ml PO QHS PRN PRN Reason: Constipation Misoprostol (Misoprostol 200 Mcg Tab) 800 mcg NV ONCE PRN PRN Reason: Uterine Bleeding Misoprostol (Misoprostol 25 Mcg Tab) 25 mcg PO Q4H CLARE Last Admin: 01/14/22 17:51 Dose: 25 mcg Ondansetron HCl (Ondansetron 4 Mg/2 Ml Inj) 4 mg IV Q8H PRN PRN Reason: Nausea And Vomiting Last Admin: 01/15/22 08:09 Dose: 4 mg Oxytocin (Oxytocin 10 Unit/1 Ml Inj) 10 unit IM ONCE PRN PRN Reason: Uterine Bleeding Terbutaline Sulfate (Terbutaline 1 Mg/1 Ml Inj) 0.25 mg SUB-Q ONCE PRN PRN Reason: Hyperstimulation/Hypertonicity Review of Systems All systems: negative Genitourinary: no leakage of fluid, no contractions - Vital Signs Vital signs: Vital Signs Pulse BP 82 135/82 01/14/22 15:29 01/14/22 15:29 Temp Pulse Resp BP Pulse Ox 98.3 F 101 H 139/82 98 01/15/22 06:26 01/15/22 08:13 01/15/22 06:24 01/15/22 08:13 - Physical Exam Breasts: Positive: deferred Cardiovascular: Regular rate Lungs: Positive: Clear to auscultation - Obstetrical Cervical Dilatation: 0 Results Result Diagrams: 01/14/22 16:44 Abnormal lab results 01/14/22 01/14/22 01/15/22 Range/Units 16:44 21:57 02:54 RBC 3.11 L (3.65-5.03) M/mm3 MCV 98 H (79-97) fl MCH 33 H (28-32) pg RDW 13.1 L (13.2-15.2) % POC Glucose 109 H 156 H (70-105) mg/dL 01/15/22 Range/Units 06:28 RBC (3.65-5.03) M/mm3 MCV (79-97) fl MCH (28-32) pg RDW (13.2-15.2) % POC Glucose 128 H (70-105) mg/dL All other labs normal. Assessment and Plan - Patient Problems (1) Chronic hypertension affecting Current Visit: No Status: Acute Plan to address problem: Admit for induction of labor (2) Diabetes mellitus affecting Current Visit: No Status: Acute
[2022-01-15] MEDS: OXYTOCIN DRIP 30 UNITS/500 ML BAG IV SCH ×2 (09:26→21:02)
[2022-01-15] MEDS: INSULIN REGULAR, HUMAN 100 UNITS/1 ML SUB-Q SCH ×2 (13:46→19:47)
[2022-01-15] MEDS ORDERED: hydrALAZINE 20 MG/1 ML INJ IV PRN (18:31)
[2022-01-15] MEDS ORDERED: AMPICILLIN 2 GM in SODIUM CHLORIDE 0.9% 50 ML IV ONE (19:00)
[2022-01-15] MEDS ORDERED: AMPICILLIN 1 GM in SODIUM CHLORIDE 0.9% 50 ML IV SCH (23:00)
--- NOTE | 2022-01-16 00:48 | Event Note ---
Date: 01/16/22 Called by nursing staff that the patient states she wants to leave. She has refused to speak to any of her care providers and has requested to speak to the nurse supervisor wash house. The patient has expressed that she was under the impression that she should have been delivered by now. She was informed an AMA form will need to be signed and the patient is assuming full responsibility for her care. A conversation was held with the patient's mother to explain that her care team is using medications to ripen the cervix for delivery. Prior to attempting to leave the hospital, the patient had received cervidil, cytotec, and low dose pitocin. There is no clinical indication for the patient to require an emergency delivery. Explained to the patient and her mother that generally inductions of labor can be a long tedious process that can take days to complete. The patient has been difficult and non-compliant through out the . She has been re sistant to guidance of her care. This is the third admission that the patient has threatened to leave against medical advice.
[2022-01-16] MEDS: INSULIN REGULAR, HUMAN 100 UNITS/1 ML SUB-Q SCH ×2 (02:00→10:10)
[2022-01-16] MEDS: LACTATED RINGERS 1,000 ML IV SCH (03:04)
[2022-01-16] MEDS: BUTORPHANOL 2 MG/1 ML INJ IV PRN (04:16)
[2022-01-16] MEDS ORDERED: AMPICILLIN/NS 1 GM/50 ML 1 GM/50 ML BAG IV SCH (08:00)
--- NOTE | 2022-01-16 13:16 | Progress Note ---
Assessment and Plan A: IUP at 36w0d undergoing induction of labor; s/p cervidil, one dose of cytotec, and low dose pitocin Chronic Hypertension Type 1 Diabetes Mellitus Bipolar Disorder GBS unknown P: Continue routine obstetric care Subjective - Subjective Date of service: 01/16/22 Principal diagnosis: IUP at 36 wks, cHTN, poorly controlled Type 1 Diabetes Mellitus, Bipolar Di Interval history: Pt without complaints this morning. She reports only a few contractions overnight. She continues to drink Silvana chano, eat [place], and eat popsicles. She denies vaginal bleeding or leakage of fluid. Patient reports: contractions, no new complaints, no loss of fluid, no vaginal bleeding Objective - Vital Signs Vital Signs: Vital Signs - 12hr 01/16/22 01/16/22 01/16/22 01:17 01:22 01:27 Temperature Pulse Rate 131 H 103 H 109 H Respiratory Rate Blood Pressure O2 Sat by Pulse 95 100 99 Oximetry O2 Sat by Pulse Oximetry [ Throughout] 01/16/22 01/16/22 01/16/22 01:32 01:37 01:40 Temperature Pulse Rate 104 H 80 106 H Respiratory Rate Blood Pressure O2 Sat by Pulse 100 99 90 Oximetry O2 Sat by Pulse Oximetry [ Throughout] 01/16/22 01/16/22 01/16/22 01:42 01:47 01:49 Temperature Pulse Rate 117 H 92 H 80 Respiratory Rate Blood Pressure 169/92 O2 Sat by Pulse 98 99 Oximetry O2 Sat by Pulse Oximetry [ Throughout] 01/16/22 01/16/22 01/16/22 01:52 01:57 02:02 Temperature Pulse Rate 85 85 80 Respiratory Rate Blood Pressure O2 Sat by Pulse 98 98 99 Oximetry O2 Sat by Pulse Oximetry [ Throughout] 01/16/22 01/16/22 01/16/22 02:07 02:12 02:16 Temperature Pulse Rate 93 H 77 72 Respiratory Rate Blood Pressure O2 Sat by Pulse 98 99 80 L Oximetry O2 Sat by Pulse Oximetry [ Throughout] 01/16/22 01/16/22 01/16/22 02:21 02:26 02:27 Temperature Pulse Rate 50 L 37 L Respiratory Rate Blood Pressure O2 Sat by Pulse 87 89 84 Oximetry O2 Sat by Pulse Oximetry [ Throughout] 01/16/22 01/16/22 01/16/22 02:33 02:38 02:43 Temperature Pulse Rate Respiratory Rate Blood Pressure O2 Sat by Pulse 90 77 L 88 Oximetry O2 Sat by Pulse Oximetry [ Throughout] 01/16/22 01/16/22 01/16/22 02:48 02:50 02:54 Temperature Pulse Rate 152 H 94 H Respiratory Rate Blood Pressure O2 Sat by Pulse 81 L 79 L 86 Oximetry O2 Sat by Pulse Oximetry [ Throughout] 01/16/22 01/16/22 01/16/22 02:56 02:59 03:02 Temperature Pulse Rate 25 L 51 L Respiratory Rate Blood Pressure O2 Sat by Pulse 81 L 80 L 83 L Oximetry O2 Sat by Pulse Oximetry [ Throughout] 01/16/22 01/16/22 01/16/22 03:04 03:09 03:15 Temperature Pulse Rate Respiratory Rate Blood Pressure O2 Sat by Pulse 82 L 86 84 Oximetry O2 Sat by Pulse Oximetry [ Throughout] 01/16/22 01/16/22 01/16/22 03:20 03:25 03:26 Temperature Pulse Rate 178 H 60 Respiratory Rate Blood Pressure O2 Sat by Pulse 81 L 80 L 91 Oximetry O2 Sat by Pulse Oximetry [ Throughout] 01/16/22 01/16/22 01/16/22 03:30 03:32 03:35 Temperature Pulse Rate 82 65 Respiratory Rate Blood Pressure O2 Sat by Pulse 82 L 81 L 88 Oximetry O2 Sat by Pulse Oximetry [ Throughout] 01/16/22 01/16/22 01/16/22 03:38 03:41 03:43 Temperature Pulse Rate 71 87 Respiratory Rate Blood Pressure O2 Sat by Pulse 83 L 88 86 Oximetry O2 Sat by Pulse Oximetry [ Throughout] 01/16/22 01/16/22 01/16/22 03:46 03:50 03:51 Temperature Pulse Rate 116 H Respiratory Rate Blood Pressure O2 Sat by Pulse 81 L 82 L 81 L Oximetry O2 Sat by Pulse Oximetry [ Throughout] 01/16/22 01/16/22 01/16/22 03:57 03:59 04:06 Temperature Pulse Rate 123 H 92 H Respiratory Rate Blood Pressure O2 Sat by Pulse 90 82 L 45 L Oximetry O2 Sat by Pulse Oximetry [ Throughout] 01/16/22 01/16/22 01/16/22 04:08 04:11 04:15 Temperature Pulse Rate 84 84 Respiratory Rate Blood Pressure 151/84 O2 Sat by Pulse 81 L 99 Oximetry O2 Sat by Pulse Oximetry [ Throughout] 01/16/22 01/16/22 01/16/22 04:16 04:19 04:20 Temperature Pulse Rate 104 H 86 Respiratory 18 Rate Blood Pressure 132/71 O2 Sat by Pulse 99 Oximetry O2 Sat by Pulse Oximetry [ Throughout] 01/16/22 01/16/22 01/16/22 04:25 04:30 04:35 Temperature Pulse Rate 76 77 75 Respiratory Rate Blood Pressure O2 Sat by Pulse 98 98 97 Oximetry O2 Sat by Pulse Oximetry [ Throughout] 01/16/22 01/16/22 01/16/22 04:40 04:45 04:50 Temperature Pulse Rate 78 81 77 Respiratory Rate Blood Pressure 142/76 O2 Sat by Pulse 96 96 96 Oximetry O2 Sat by Pulse Oximetry [ Throughout] 01/16/22 01/16/22 01/16/22 04:55 05:00 05:05 Temperature Pulse Rate 78 80 80 Respiratory Rate Blood Pressure O2 Sat by Pulse 96 97 97 Oximetry O2 Sat by Pulse Oximetry [ Throughout] 01/16/22 01/16/22 01/16/22 05:10 05:15 05:16 Temperature Pulse Rate 83 77 Respiratory 18 Rate Blood Pressure O2 Sat by Pulse 96 97 Oximetry O2 Sat by Pulse Oximetry [ Throughout] 01/16/22 01/16/22 01/16/22 05:19 05:20 05:25 Temperature Pulse Rate 75 79 74 Respiratory Rate Blood Pressure 125/73 O2 Sat by Pulse 96 98 Oximetry O2 Sat by Pulse Oximetry [ Throughout] 01/16/22 01/16/22 01/16/22 05:30 05:35 05:40 Temperature Pulse Rate 81 85 84 Respiratory Rate Blood Pressure O2 Sat by Pulse 96 96 97 Oximetry O2 Sat by Pulse Oximetry [ Throughout] 01/16/22 01/16/22 01/16/22 05:45 05:49 05:50 Temperature Pulse Rate 101 H 88 77 Respiratory Rate Blood Pressure 121/79 O2 Sat by Pulse 97 98 Oximetry O2 Sat by Pulse Oximetry [ Throughout] 01/16/22 01/16/22 01/16/22 05:55 06:00 06:05 Temperature Pulse Rate 92 H 73 103 H Respiratory Rate Blood Pressure O2 Sat by Pulse 97 98 97 Oximetry O2 Sat by Pulse Oximetry [ Throughout] 01/16/22 01/16/2201/16/22 06:10 06:15 06:20 Temperature Pulse Rate 90 74 78 Respiratory Rate Blood Pressure O2 Sat by Pulse 97 97 98 Oximetry O2 Sat by Pulse Oximetry [ Throughout] 01/16/22 01/16/22 01/16/22 06:25 06:30 06:35 Temperature Pulse Rate 84 77 79 Respiratory Rate Blood Pressure O2 Sat by Pulse 97 98 98 Oximetry O2 Sat by Pulse Oximetry [ Throughout] 01/16/22 01/16/22 01/16/22 06:40 06:45 06:50 Temperature Pulse Rate 74 78 78 Respiratory Rate Blood Pressure O2 Sat by Pulse 99 98 98 Oximetry O2 Sat by Pulse Oximetry [ Throughout] 01/16/22 01/16/22 01/16/22 06:55 07:00 07:05 Temperature Pulse Rate 75 78 78 Respiratory Rate Blood Pressure O2 Sat by Pulse 98 98 98 Oximetry O2 Sat by Pulse Oximetry [ Throughout] 01/16/22 01/16/22 01/16/22 07:10 07:15 07:20 Temperature Pulse Rate 75 96 H 84 Respiratory Rate Blood Pressure O2 Sat by Pulse 98 96 97 Oximetry O2 Sat by Pulse Oximetry [ Throughout] 01/16/22 01/16/22 01/16/22 07:25 07:30 07:35 Temperature Pulse Rate 77 102 H 88 Respiratory Rate Blood Pressure O2 Sat by Pulse 97 98 98 Oximetry O2 Sat by Pulse Oximetry [ Throughout] 01/16/22 01/16/22 01/16/22 07:40 07:45 07:50 Temperature Pulse Rate 87 80 113 H Respiratory Rate Blood Pressure O2 Sat by Pulse 99 98 96 Oximetry O2 Sat by Pulse Oximetry [ Throughout] 01/16/22 01/16/22 01/16/22 07:56 08:02 08:06 Temperature Pulse Rate 66 89 Respiratory Rate Blood Pressure O2 Sat by Pulse 81 L 80 L 81 L Oximetry O2 Sat by Pulse Oximetry [ Throughout] 01/16/22 01/16/22 01/16/22 08:07 08:11 08:13 Temperature 98.7 F Pulse Rate 138 H Respiratory Rate Blood Pressure O2 Sat by Pulse 80 L 80 L Oximetry O2 Sat by Pulse 100 Oximetry [ Throughout] 01/16/22 01/16/22 01/16/22 08:16 08:18 08:21 Temperature 97.8 F Pulse Rate 118 H 158 H 55 L Respiratory Rate Blood Pressure O2 Sat by Pulse 81 L 80 L 82 L Oximetry O2 Sat by Pulse Oximetry [ Throughout] 01/16/22 01/16/22 01/16/22 08:27 08:29 08:32 Temperature Pulse Rate 65 68 Respiratory Rate Blood Pressure O2 Sat by Pulse 79 L 77 L 79 L Oximetry O2 Sat by Pulse Oximetry [ Throughout] 01/16/22 01/16/22 01/16/22 08:34 08:39 08:41 Temperature Pulse Rate 140 H 81 Respiratory Rate Blood Pressure O2 Sat by Pulse 0 L 77 L 81 L Oximetry O2 Sat by Pulse Oximetry [ Throughout] 01/16/22 01/16/22 01/16/22 08:44 08:47 08:49 Temperature Pulse Rate 126 H 69 Respiratory Rate Blood Pressure 164/90 O2 Sat by Pulse 78 L 79 L Oximetry O2 Sat by Pulse Oximetry [ Throughout] 01/16/22 01/16/22 01/16/22 08:52 08:57 09:02 Temperature Pulse Rate 131 H 164 H 147 H Respiratory Rate Blood Pressure O2 Sat by Pulse 79 L 79 L 79 L Oximetry O2 Sat by Pulse Oximetry [ Throughout] 01/16/22 01/16/22 01/16/22 09:07 09:12 09:15 Temperature Pulse Rate 151 H Respiratory Rate Blood Pressure O2 Sat by Pulse 79 L 79 L 79 L Oximetry O2 Sat by Pulse Oximetry [ Throughout] 01/16/22 01/16/22 01/16/22 09:17 09:20 09:24 Temperature Pulse Rate 97 H 68 Respiratory Rate Blood Pressure O2 Sat by Pulse 79 L 79 L 86 Oximetry O2 Sat by Pulse Oximetry [ Throughout] 01/16/22 01/16/22 01/16/22 09:29 09:34 09:39 Temperature Pulse Rate 53 L 55 L 59 L Respiratory Rate Blood Pressure O2 Sat by Pulse 79 L 79 L 82 L Oximetry O2 Sat by Pulse Oximetry [ Throughout] 01/16/22 01/16/22 01/16/22 09:44 09:49 09:55 Temperature Pulse Rate 179 H 202 H Respiratory Rate Blood Pressure O2 Sat by Pulse 80 L 80 L 83 L Oximetry O2 Sat by Pulse Oximetry [ Throughout] 01/16/22 01/16/22 01/16/22 10:00 10:01 10:05 Temperature Pulse Rate Respiratory Rate Blood Pressure O2 Sat by Pulse 81 L 79 L 81 L Oximetry O2 Sat by Pulse Oximetry [ Throughout] 01/16/22 01/16/22 01/16/22 10:07 10:11 10:13 Temperature Pulse Rate 57 L 65 Respiratory Rate Blood Pressure 173/92 O2 Sat by Pulse 84 80 L 79 L Oximetry O2 Sat by Pulse Oximetry [ Throughout] 01/16/22 01/16/22 01/16/22 10:16 10:18 10:20 Temperature Pulse Rate 64 73 Respiratory Rate Blood Pressure 182/95 O2 Sat by Pulse 83 L 86 Oximetry O2 Sat by Pulse Oximetry [ Throughout] 01/16/22 01/16/22 01/16/22 10:21 10:26 10:31 Temperature Pulse Rate 81 163 H Respiratory Rate Blood Pressure O2 Sat by Pulse 78 L 81 L 82 L Oximetry O2 Sat by Pulse Oximetry [ Throughout] 01/16/22 01/16/22 01/16/22 10:36 10:39 10:41 Temperature Pulse Rate 106 H 156 H Respiratory Rate Blood Pressure O2 Sat by Pulse 79 L 81 L 80 L Oximetry O2 Sat by Pulse Oximetry [ Throughout] 01/16/22 01/16/22 01/16/22 10:44 10:47 10:49 Temperature Pulse Rate 149 H 76 Respiratory Rate Blood Pressure 167/88 O2 Sat by Pulse 79 L 83 L Oximetry O2 Sat by Pulse Oximetry [ Throughout] 01/16/22 01/16/22 01/16/22 10:52 10:56 10:57 Temperature Pulse Rate 153 H 153 H Respiratory Rate Blood Pressure O2 Sat by Pulse 80 L 79 L 0 L Oximetry O2 Sat by Pulse Oximetry [ Throughout] 01/16/22 01/16/22 01/16/22 11:01 11:07 11:09 Temperature Pulse Rate 121 H 116 H 130 H Respiratory Rate Blood Pressure 181/97 O2 Sat by Pulse 80 L 79 L 79 L Oximetry O2 Sat by Pulse Oximetry [ Throughout] 01/16/22 01/16/22 01/16/22 11:12 11:13 11:14 Temperature Pulse Rate 106 H 97 H 128 H Respiratory Rate Blood Pressure 147/80 O2 Sat by Pulse 79 L 81 L Oximetry O2 Sat by Pulse Oximetry [ Throughout] 01/16/22 01/16/22 01/16/22 11:17 11:22 11:27 Temperature Pulse Rate 90 74 87 Respiratory Rate Blood Pressure O2 Sat by Pulse 86 97 99 Oximetry O2 Sat by Pulse Oximetry [ Throughout] 01/16/22 01/16/22 01/16/22 11:28 11:32 11:37 Temperature Pulse Rate 92 H 78 89 Respiratory Rate Blood Pressure 163/91 O2 Sat by Pulse 98 99 Oximetry O2 Sat by Pulse Oximetry [ Throughout] 01/16/22 01/16/22 01/16/22 11:42 11:44 11:47 Temperature Pulse Rate 98 H 75 77 Respiratory Rate Blood Pressure 167/85 O2 Sat by Pulse 99 98 Oximetry O2 Sat by Pulse Oximetry [ Throughout] 01/16/22 01/16/22 01/16/22 11:52 11:57 11:58 Temperature Pulse Rate 87 75 81 Respiratory Rate Blood Pressure 156/79 O2 Sat by Pulse 98 98 Oximetry O2 Sat by Pulse Oximetry [ Throughout] 01/16/22 01/16/22 01/16/22 12:48 12:53 12:54 Temperature Pulse Rate 89 86 89 Respiratory Rate Blood Pressure O2 Sat by Pulse 84 100 90 Oximetry O2 Sat by Pulse Oximetry [ Throughout] 01/16/22 01/16/22 01/16/22 12:58 13:03 13:04 Temperature Pulse Rate 84 79 81 Respiratory Rate Blood Pressure 149/99 O2 Sat by Pulse 99 99 Oximetry O2 Sat by Pulse Oximetry [ Throughout] 01/16/22 01/16/22 01/16/22 13:08 13:13 13:15 Temperature Pulse Rate 72 77 72 Respiratory Rate Blood Pressure 159/83 O2 Sat by Pulse 97 99 Oximetry O2 Sat by Pulse Oximetry [ Throughout] - Exam Breasts: deferred Abdomen: Present: soft (gravid ) Uterus: Present: normal (gravid ) FHR: auscultation normal Uterine Contraction Monitor Mode: External Cervical Dilatation: 1.5 Cervical Effacement Percentage: 60 station: -3 Uterine Contraction Pattern: Irregular Uterine Tone Measurement Phase: Resting Uterine Contraction Intensity: Moderate Extremities: edema (trace) - Labs Labs: Abnormal Labs 01/14/22 01/14/22 01/15/22 16:44 21:57 02:54 RBC 3.11 L MCV 98 H MCH 33 H RDW 13.1 L POC Glucose 109 H 156 H 01/15/22 01/15/2222 06:28 13:27 19:32 RBC MCV MCH RDW POC Glucose 128 H 198 H 271 H 01/16/22 01/16/22 01:30 10:05 RBC MCV MCH RDW POC Glucose 357 H 258 H Laboratory Results - last 24 hr 01/15/22 01/15/22 01/16/22 13:27 19:32 01:30 POC Glucose 198 H 271 H 357 H 01/16/22 10:05 POC Glucose 258 H
[2022-01-16] MEDS ORDERED: miSOPROStol 25 MCG TAB PO SCH (14:00)
--- NOTE | 2022-01-16 19:41 | Event Note ---
Date: 01/16/22 On-call physician called because pt "does not want anyone in her room." On-call provider called the patient on her room phone in an effort to respect her wishes and no one entered her room. Patient asked what is wrong. She reports discontent that her Pitocin was not stopped sooner and that her Cytotec was not started sooner and that she was unable to eat a popsicle when she desired one. She reports that she would like to have a family member present to be a witness to all patient interactions prior to proceeding with her induction.
[2022-01-17] MEDS: FAMOTIDINE 20 MG/2 ML INJ IV SCH ×2 (00:10→11:11)
[2022-01-17] MEDS: INSULIN REGULAR, HUMAN 100 UNITS/1 ML SUB-Q SCH ×5 (00:45→21:30)
[2022-01-17] MEDS: BUTORPHANOL 2 MG/1 ML INJ IV PRN (00:53)
[2022-01-17] MEDS: miSOPROStol 25 MCG TAB PO SCH ×2 (05:20→11:06)
[2022-01-17] MEDS ORDERED: ceFAZolin/Water 2 GM/20 ML 2 GM/20 ML SYRINGE IV NR (16:00)
[2022-01-17] MEDS ORDERED: LACTATED RINGERS 1,000 ML IV SCH ×2 (16:15→18:45)
--- NOTE | 2022-01-17 16:22 | Event Note ---
Date: 01/17/22 Pt remains 1 cm dilated after cervidil, low dose pitocin and multiple doses of cytotec. Plan to proceed with primary section and other indicated procedures. Anesthesia and SOFIA nurse aware.
[2022-01-17 16:40] LABS: Basophils % (Auto) 0.5 % (0.0-1.8); Eosinophils # (Auto) 0.1 K/mm3 (0.0-0.4); Eosinophils % (Auto) 1.3 % (0.0-4.3); Hematocrit 35.4 % (30.3-42.9); Hemoglobin 11.9 gm/dl (10.1-14.3); Lymphocytes # (Auto) 2.1 K/mm3 (1.2-5.4); Lymphocytes % (Auto) 27.4 % (13.4-35.0); Mean Corpuscular HGB Conc 34 % (30-34); Mean Corpuscular Volume 97 fl (79-97); Monocytes # (Auto) 0.5 K/mm3 (0.0-0.8); Platelet Count 203 K/mm3 (140-440); Red Blood Count 3.65 M/mm3 (3.65-5.03); Red Cell Distribution Width 13.1 % (13.2-15.2)
--- NOTE | 2022-01-17 16:45 | Anesthesia Day of Surgery ---
Anesthesia Day of Surgery - Day of Surgery Patient Examined: Yes Patient H&P Reviewed: Yes Patient is NPO: Yes
--- NOTE | 2022-01-17 16:46 | Anesthesia Consultation ---
Anesthesia Consult and Med Hx Date of service: 01/17/22 - Airway Anesthetic Teeth Evaluation: Poor ROM Head & Neck: Adequate Mental/Hyoid Distance: Adequate Mallampati Class: Class II Intubation Access Assessment: Probably Good - Pulmonary Exam CTA: Yes - Cardiac Exam Cardiac Exam: RRR - Pre-Operative Health Status ASA Pre-Surgery Classification: ASA3 Proposed Anesthetic Plan: Spinal - Pulmonary Hx Smoking: Yes (daily smoker) Hx Asthma: No COPD: No Hx Pneumonia: No - Cardiovascular System Hx Hypertension: Yes (Chronic) - Central Nervous System Hx Seizures: No Hx Psychiatric Problems: Yes (depression Bipolor disorder Anxiety ) - Endocrine Hx Renal Disease: No Hx End Stage Renal Disease: No Hx Insulin Dependent Diabetes: Yes Hx Hypothyroidism: No Hx Hyperthyroidism: No - Hematic Hx Anemia: No Hx Sickle Cell Disease: No - Other Systems Hx Alcohol Use: No Hx Substance Use: No Hx Cancer: No Hx Obesity: No
[2022-01-17] MEDS ORDERED: BUPIVACAINE/PF (0.5%) 5 MG/1 ML 30 ML VIAL INFILTRATI ONE (16:50)
[2022-01-17] MEDS ORDERED: LACTATED RINGERS 1,000 ML ONE (16:50)
[2022-01-17] MEDS ORDERED: ONDANSETRON 4 MG/2 ML INJ ONE (16:50)
[2022-01-17] MEDS ORDERED: SODIUM CHLORIDE 0.9% 500 ML 500 ML ONE (16:52)
[2022-01-17] MEDS ORDERED: BICITRA ORAL LIQD 30ML PO ONE (17:00)
[2022-01-17] MEDS ORDERED: METOCLOPRAMIDE 10 MG/2 ML INJ IV ONE (17:00)
[2022-01-17] MEDS ORDERED: OXYTOCIN DRIP 30 UNITS/500 ML BAG IV SCH ×2 (17:00→20:00)
[2022-01-17] MEDS ORDERED: ceFAZolin/STERILE WATER 2 GM/20 ML SYRINGE IV ONE (17:00)
[2022-01-17] MEDS ORDERED: FAMOTIDINE 20 MG/2 ML INJ IV ONE (17:00)
[2022-01-17] MEDS ORDERED: dexAMETHasone 20 MG/5 ML VIAL ONE (17:34)
[2022-01-17] MEDS ORDERED: TRANEXAMIC ACID 1,000 MG/10 ML ONE (17:37)
[2022-01-17] MEDS ORDERED: SODIUM CHLORIDE 0.9% 100 ML ONE (17:41)
[2022-01-17] MEDS ORDERED: KETOROLAC 30 MG/1 ML INJ ONE (18:14)
--- NOTE | 2022-01-17 18:44 | Procedure Note ---
OB Delivery Note - Delivery Date of Delivery: 01/17/22 Surgeon: RADHA LANIER Estimated blood loss: other (QBL 301 mL) - Section Preop diagnosis: arrest of dilation Postop diagnosis: same section procedure: section, primary low transverse Disposition: PACU Narrative: Please see operative report - Infant A at 1 minute: 7 at 5 minutes: 8 Infant Gender: Male (2650g (5lb 13oz) @ 1736 pm)
[2022-01-17] MEDS ORDERED: MAGNESIUM SULFATE 4 GM/100 ML BAG IV ONE (18:45)
[2022-01-17] MEDS ORDERED: CALCIUM GLUCONATE 1000 MG/10 ML INJ IV ONE (18:45)
[2022-01-17] MEDS ORDERED: hydrALAZINE 20 MG/1 ML INJ IV PRN (18:45)
--- NOTE | 2022-01-17 18:50 | Progress Note ---
Spinal Anesthesia Block - Spinal Anesthesia Block Start Time: 16:57 Stop Time: 16:59 Performed by:: ALDEN DACOSTA Procedure: Patient IDed, H&P reviewed, all questions and concerns were answered, and consent was signed. Timeout was performed at bedside. Patient in sitting position. Sterile prep and drape was performed. [3] ml of 1% lidocaine skin wheal at L[3]- L [4]. Needle introducer advanced. 24 gauge spinal needle advanced. Clear, free flowing CSF. negative blood, negative paresthesia. Spinal dose given. All needles removed. Patient tolerated procedure.
--- NOTE | 2022-01-17 18:51 | Progress Note ---
Regional Anesthesia Block - Regional Anesthesia Block Start Time: 18:22 Stop Time: 18:29 Performed By:: ALDEN DACOSTA Procedure: Patient consented for TAP block for post surgical pain management. Patient identified, monitors placed, and time out performed. TAP identified bilaterally via ultrasound. Skin prepped bilaterally with [chlorhexidine] and [22g stimuplex] needle advanced to the TAP. [Marcaine 0.22% 35ml] injected under ultrasound guidance on the [left] side. [Marcaine 0.22% 35ml] injected under ultrasound guidance on the [right] side. Negative aspiration every 5mL, No change in heart rate or rhythm. Patient tolerated the procedure well. No apparent complications seen.
--- NOTE | 2022-01-17 18:51 | Operative Report ---
Operative Report Operative Report: Date of procedure: January 17, 2022 Preoperative diagnosis: 1) IUP at 36w1d 2) Chronic Hypertension with que stionable superimposed preeclampsia 3) Poorly controlled gestational diabetes 4) Non-compliance Postoperative diagnosis: Same Procedure: Primary low transverse section Surgeon: Sarai Mckeon M.D. Anesthesia: Regional Findings: 1) Viable male , Apgars 7 and 8, weight 2650 g, (5 lb 13 oz) in cephalic presentation. 2) Normal-appearing uterus ovaries and tubes Estimated blood loss: 301 mL IV fluids: 2000 mL Urine output: 260 mL, clear but concentrated at the end of the procedure Drains: Rebollar to gravity Specimens: Placenta to pathology Complications:None. Counts correct x 3 Disposition: Stable to PACU Indication for procedure: Pt is a 22 year old -[place] female primigravida at 36w1d who presents initially for induction of labor due to elevated blood pressures in the setting of chronic hypertension with superimposed preeclampsia vs diabetic nephropathy, poorly controlled type 1 diabetes mellitus with maternal medicine recommendation for delivery between 34 and 37 wks. 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 Operation in detail: After the risks, benefits, alternatives and complications were explained to the patient she gave informed consent for the procedure. She was subsequently taken to the operating room where regional anesthesia was noted to be adequate. She was placed in the dorsal supine position with leftward tilt and prepped and draped in a normal sterile fashion. heart tones were noted prior to incision. A timeout was performed. A Pfannenstiel skin incision was made with the knife and carried down to the layer of the fascia with the Bovie. The fascia was incised in the midline and the fascial incision was extended bilaterally with the Bovie. The fascial incision was then stretched. The rectus muscles were then in the midline and partially transected for adequate visualization. The peritoneum was then entered bluntly. The peritoneal incision was extended with good visualization of the bladder. The peritoneal incision was then stretched. An Endy retractor was placed. The bladder blade was then placed. The vesicouterine peritoneum was grasped with smooth pick ups and incised with Metzenbaum scissors. A bladder flap was then created digitally and the bladder blade was replaced. A transverse incision was made in the lower uterine segment with a knife and extended bilaterally with the bandage scissors. Amniotomy was performed with egress of clear fluid. head delivered with ease, followed by shoulders and body. bulb suctioned at delivery. Cord clamped and cut. handed to NICU staff in attendance. Cord blood was collected. The placenta was then delivered manually. The uterus was then cleared of all clots and debris. The hysterotomy was then reapproximated with 0 Monocryl in a running locked fashion. A second layer of the same suture was used in imbricating fashion. The hysterotomy was inspected and hemostasis was noted. The gutters were irrigated and cleared of all clots and debris. The uterus was placed back into the peritoneal cavity. The hysterotomy was again inspected and noted to be hemostatic. Surgicel was placed over the hysterotomy. The Endy retractor was removed. The peritoneum was reapproximated with 0 Monocryl in a running fashion incorporating the rectus muscles. Surgicel was placed over the rectus muscles. The fascia was reapproximated with 0 Vicryl in a running fashion. The subcutaneous tissue was reapproximated with 3-0 Vicryl in a running fashion. The skin was reapproximated with 3-0 Monocryl in a subcuticular fashion. The incision was then covered with steri strips and a pressure dressing. The procedure was then ended. The patient tolerated the procedure well and was taken to the PACU in stable condition. All instrument, lap, and needle counts were correct 3.
[2022-01-17] MEDS: LACTATED RINGERS 1,000 ML IV SCH (18:55)
[2022-01-17] MEDS ORDERED: NIFEdipine XL 30 MG TAB PO SCH (19:00)
[2022-01-17] MEDS ORDERED: MAGNESIUM SULFATE 40GM/1000ML 40 GM/1,000 ML BAG IV SCH (19:00)
[2022-01-17] MEDS ORDERED: LANOLIN/ZINC/DIMETHICONE (LANSINOH) 7 GM TP PRN (19:02)
[2022-01-17] MEDS ORDERED: WITCH HAZEL/ GLYCERIN PAD TP PRN (19:02)
[2022-01-17] MEDS ORDERED: IBUPROFEN 800 MG TAB PO PRN (19:02)
[2022-01-17] MEDS ORDERED: HYDROmorphone 0.5 MG/0.5 ML INJ IV PRN (19:02)
[2022-01-17] MEDS ORDERED: NALOXONE 0.4 MG/1 ML INJ IV PRN (19:02)
[2022-01-17] MEDS ORDERED: SIMETHICONE 80 MG CHEW TAB PO PRN (19:02)
[2022-01-17] MEDS ORDERED: ONDANSETRON 4 MG/2 ML INJ IV PRN (19:02)
[2022-01-17] MEDS: hydrALAZINE 20 MG/1 ML INJ IV PRN (19:15)
[2022-01-17 19:53] LABS: Alanine Aminotransferase 12 units/L (7-56); Uric Acid 6.7 mg/dL (3.5-7.6)
[2022-01-18] MEDS: HYDROmorphone 0.5 MG/0.5 ML INJ IV PRN ×2 (00:06→09:02)
[2022-01-18] MEDS: KETOROLAC 30 MG/1 ML INJ IV SCH ×3 (02:06→14:52)
[2022-01-18] MEDS: hydrALAZINE 20 MG/1 ML INJ IV PRN ×2 (02:41→11:08)
[2022-01-18] MEDS ORDERED: SODIUM CHLORIDE 0.9% 1000 ML 1,000 ML ONE ×2 (03:14→18:22)
[2022-01-18] MEDS ORDERED: SODIUM CHLORIDE 0.9% 1000 ML 1,000 ML IV SCH (03:30)
[2022-01-18 03:47] LABS: Hematocrit 35.9 % (30.3-42.9); Hemoglobin 11.6 gm/dl (10.1-14.3)
--- NOTE | 2022-01-18 03:55 | Event Note ---
Date: 01/18/22 On-call physician called to by RN secondary to elevated blood sugar of 445. On- call provider en route. Upon entry into room, pt is alert, oriented and in no acute distress. Hospitalist consulted secondary to hyperglycemia. He recommends BMP, magnesium, Hemoglobin A1C, moderate dose sliding scale, and change of IV fluids to normal saline. She now reports that she had an argument with her child's father and that may have increased her blood pressure. She also reveals that she ate two popsicles and drank two cans of marivel chano about 15 minutes prior to her glucose being checked. Continue to closely monitor clinical status.
[2022-01-18 03:56] LABS: BUN/Creatinine Ratio 6; Blood Urea Nitrogen 5 mg/dL (7-17); Hemolysis Index 44
[2022-01-18] MEDS ORDERED: SODIUM CHLORIDE 0.9% 100 ML IVPB IV SCH (04:00)
[2022-01-18] MEDS ORDERED: DEXTROSE 50% IN WATER (25GM) 50 ML SYRINGE IV PRN ×2 (04:15→08:27)
[2022-01-18] MEDS: INSULIN REGULAR, HUMAN 100 UNITS/1 ML SUB-Q SCH (04:18)
--- NOTE | 2022-01-18 04:20 | Consultation ---
History of Present Illness - Reason for Consult Consult date: 01/18/22 Hyperglycemia - History of Present Illness 22-year-old at 35+6 weeks presents for induction of labor. Patient's pren atal course was initiated in first trimester of the . Her course has been significantly complicated by history of chronic hypertension and insulin-dependent diabetes. Patient is status post . Medical consult is called for elevated blood sugar of 445.She now reports that she had an argument with her child's father and that may have increased her blood pressure. She also reveals that she ate two popsicles and drank two cans of marivel chano about 15 minutes prior to her glucose being checked. Continue to closely monitor clinical status. Patient is seen and examined. Patient has no acute distress. BMP and hemoglobin A1c is ordered. IV fluids changed to normal saline. Patient is instructed to give Lantus 20 units in the morning and 32 units in the nighttime with Accu-Chek every 6 hours with Humalog high-dose coverage as. Diabetic education Past History Past Medical History: diabetes, hypertension Past Surgical History: Social history: no significant social history, single Family history: hypertension Medications and Allergies Allergies Allergy/AdvReac Type Severity Reaction Status Date / Time azithromycin [From Zithromax] Allergy Rash Verified 08/24/13 07:30 latex Allergy Itching Verified 12/19/21 18:24 Home Medications Medication Instructions Recorded Confirmed Last Taken Type Insulin Regular, Human 12 units SUB-Q BID 12/19/21 12/19/21 12/19/21 History Lantus VIAL 30 units SUB-Q BID 12/19/21 12/19/21 12/19/21 History Tablet 1 tab PO DAILY 12/19/21 12/19/21 12/19/21 History Wellbutrin 1 tab PO DAILY 12/19/21 12/19/21 12/15/21 History Active Meds: Active Medications Acetaminophen (Acetaminophen 325 Mg Tab) 650 mg PO Q4H PRN PRN Reason: Pain, Mild (1-3) Carboprost Tromethamine (Carboprost Tromethamine 250 Mcg/1 Ml Inj) 250 mcg IM ONCE PRN PRN Reason: Uterine Bleeding Dextrose (Dextrose 50% In Water (25gm) 50 Ml Syringe) 50 ml IV Q30MIN PRN; Protocol PRN Reason: Hypoglycemia Diphtheria/Tetanus/Acell Pertussis (Tetanus,Diph,Pertuss(Acell) Vaccine 0.5 Ml Syringe) 0.5 ml IM .ONCE ONE Stop: 01/19/22 06:01 Ephedrine Sulfate (Ephedrine Sulfate 50 Mg/1 Ml Inj) 10 mg IV Q2M PRN PRN Reason: Hypotension Famotidine (Famotidine 20 Mg/2 Ml Inj) 20 mg IV BID [facility] Last Admin: 01/17/22 11:11 Dose: 20 mg Ferrous Sulfate (Ferrous Sulfate 325 Mg Tab) 325 mg PO QDAY [facility]ARE Hydralazine HCl (Hydralazine 20 Mg/1 Ml Inj) 10 mg IV Q20MIN PRN PRN Reason: Hypertension Last Admin: 01/18/22 02:41 Dose: 5 mg Hydromorphone HCl (Hydromorphone 0.5 Mg/0.5 Ml Inj) 0.25 mg IV Q3H PRN PRN Reason: Pain, Moderate (4-6) Hydromorphone HCl (Hydromorphone 0.5 Mg/0.5 Ml Inj) 0.5 mg IV Q3H PRN PRN Reason: Pain , Severe (7-10) Last Admin: 01/18/22 00:06 Dose: 0.5 mg Lactated Ringer's (Lactated Ringers) 1,000 mls @ 125 mls/hr IV DIRECT CLARE Magnesium Sulfate (Magnesium Sulfate 40gm/1000ml) 40 gm in 1,000 mls @ 50 mls/hr IV DIRECT CLARE Last Admin: 01/17/22 19:27 Dose: 2 gm/hr, 50 mls/hr Oxytocin/Sodium Chloride (Pitocin/Ns 30 Unit/500ml) 30 units in 500 mls @ 40 mls/hr IV TITR CLARE; Protocol Cefazolin Sodium (Ancef/Ns 1 Gm/50 Ml) 1 gm in 50 mls @ 100 mls/hr IV Q8H [facility] Stop: 01/18/22 09:29 Sodium Chloride (Nacl 0.9% 1000 Ml) 1,000 mls @ 100 mls/hr IV DIRECT CLARE Ibuprofen (Ibuprofen 800 Mg Tab) 800 mg PO Q6H PRN PRN Reason: Pain, Moderate (4-6) Insulin Glargine (Insulin Glargine 100 Units/Ml) 32 units SUB-Q QHS [facility] Insulin Glargine (Insulin Glargine 100 Units/Ml) 20 units SUB-Q QAMDIAB [facility] Insulin Human Lispro (Insulin Lispro 100 Unit/Ml) 0 unit SUB-Q Q6HR [facility]; Protocol Ketorolac Tromethamine (Ketorolac 30 Mg/1 Ml Inj) 30 mg IV Q6H [facility] Stop: 01/18/22 14:01 Last Admin: 01/18/22 02:06 Dose: 30 mg Labetalol HCl (Labetalol 20 Mg/4 Ml Inj) 20 mg IV ONCE PRN PRN Reason: Hypertension Loperamide HCl (Loperamide 2 Mg Cap) 2 mg PO ONCE PRN PRN Reason: give with Hemabate Measles/Mumps/Rubella Vaccine Live (Measles, Mumps & Rubella 12,500 Unit/0.5 Ml Vaccine) 0.5 ml SUB-Q .ONCE ONE Stop: 01/18/22 19:04 Methylergonovine Maleate (Methylergonovine Maleate 0.2 Mg/Ml Vial) 0.2 mg IM ONCE PRN PRN Reason: Uterine Bleeding Mineral Oil (Mineral Oil 30 Ml Oral Liqd) 30 ml PO QHS PRN PRN Reason: Constipation Multi-Ingredient Ointment (Lanolin/Zinc/Dimethicone (Lansinoh) 7 Gm) 1 applic TP PRN PRN PRN Reason: dryness/cracking Naloxone HCl (Naloxone 0.4 Mg/1 Ml Inj) 0.1 mg IV Q2MIN PRN PRN Reason: Res Rate </= 8 or 02 SAT < 92% Ondansetron HCl (Ondansetron 4 Mg/2 Ml Inj) 4 mg IV Q8H PRN PRN Reason: Nausea And Vomiting Oxycodone/Acetaminophen (Oxycodone /Acetaminophen 5-325mg Tab) 2 tab PO Q4H PRN PRN Reason: Pain, Moderate (4-6) Oxytocin (Oxytocin 10 Unit/1 Ml Inj) 10 unit IM ONCE PRN PRN Reason: Uterine Bleeding Simethicone (Simethicone 80 Mg Chew Tab) 80 mg PO Q6H PRN PRN Reason: Gas pain Sodium Chloride (Sodium Chloride 0.9% 10 Ml Flush Syringe) 10 ml IV PRN PRN PRN Reason: LINE FLUSH Terbutaline Sulfate (Terbutaline 1 Mg/1 Ml Inj) 0.25 mg SUB-Q ONCE PRN PRN Reason: Hyperstimulation/Hypertonicity Witch Cindy/Glycerin (Witch Cindy/ Glycerin Pad) 1 each TP PRN PRN PRN Reason: Hemorrhoids/cleansing/soothing Review of Systems All systems: negative Constitutional: fatigue, malaise Exam - Constitutional Vitals: Temp Pulse Resp BP Pulse Ox 97.5 F L 102 H 17 138/74 99 01/17/22 19:33 01/18/22 04:10 01/18/22 01:57 01/18/22 04:03 01/18/22 04:10 General appearance: Present: no acute distress, well-nourished - EENT Eyes: Present: PERRL ENT: hearing intact, clear oral mucosa - Neck Neck: Present: supple, normal ROM - Respiratory Respiratory effort: normal Respiratory: bilateral: CTA - Cardiovascular Heart Sounds: Present: S1 & S2. Absent: rub, click - Extremities Extremities: pulses symmetrical, No edema Peripheral Pulses: within normal limits - Abdominal General gastrointestinal: Present: soft, non-tender, non-distended, normal bowel sounds Female genitourinary: Present: normal - Integumentary Integumentary: Present: clear, warm, dry - Musculoskeletal Musculoskeletal: gait normal, strength equal bilaterally - Psychiatric Psychiatric: appropriate mood/affect, intact judgment & insight - Neurologic Neurologic: CNII-XII intact, moves all extremities Results - Labs CBC & Chem 7: 01/18/22 03:30 01/18/22 03:30 Labs: Abnormal lab results 01/17/22 01/17/22 01/17/22 Range/Units 06:56 11:11 14:55 MCH (28-32) pg RDW (13.2-15.2) % Sodium (137-145) mmol/L Chloride (98-107) mmol/L Carbon Dioxide (22-30) mmol/L BUN (7-17) mg/dL Glucose (65-100) mg/dL POC Glucose 236 H 268 H 240 H (70-105) mg/dL Calcium (8.4-10.2) mg/dL Magnesium (1.7-2.3) mg/dL Lactate Dehydrogenase (91-180) units/L 01/17/22 01/17/22 01/17/22 Range/Units 15:40 15:40 21:05 MCH 33 H (28-32) pg RDW 13.1 L (13.2-15.2) % Sodium (137-145) mmol/L Chloride (98-107) mmol/L Carbon Dioxide (22-30) mmol/L BUN (7-17) mg/dL Glucose (65-100) mg/dL POC Glucose 161 H (70-105) mg/dL Calcium (8.4-10.2) mg/dL Magnesium (1.7-2.3) mg/dL Lactate Dehydrogenase 194 H (91-180) units/L 01/18/22 01/18/22 Range/Units 03:30 03:30 MCH (28-32) pg RDW (13.2-15.2) % Sodium 126 L (137-145) mmol/L Chloride 93.5 L (98-107) mmol/L Carbon Dioxide 21 L (22-30) mmol/L BUN 5 L (7-17) mg/dL Glucose 563 H* (65-100) mg/dL POC Glucose (70-105) mg/dL Calcium 8.0 L (8.4-10.2) mg/dL Magnesium 5.20 H (1.7-2.3) mg/dL Lactate Dehydrogenase (91-180) units/L Assessment and Plan - Patient Problems (1) Diabetes type 1, uncontrolled Current Visit: Yes Status: Acute Plan to address problem: Accu-Chek every 6 hours with Humalog moderate dose coverage. Diabetic education. Lantus 20 units in the morning and 32 units in the nighttime. We will recheck the BMP and hemoglobin A1c. Patient instructed to compliant with the diet. We will monitor the patient closely. (2) Hypertension Current Visit: Yes Status: Acute Plan to address problem: Hydralazine 10 mg IV daily 20 minutes as needed. Continue other home medication (3) Diabetes mellitus affecting Current Visit: No Status: Acute Plan to address problem: Accu-Chek every 6 hours with Humalog moderate dose coverage. Diabetic education. Lantus 20 units in the morning and 32 units in the nighttime. We will recheck the BMP and hemoglobin A1c. Patient instructed to compliant with the diet.
[2022-01-18] MEDS: INSULIN GLARGINE 100 UNITS/ML SUB-Q SCH ×3 (04:25→21:39)
[2022-01-18] MEDS ORDERED: INSULIN GLARGINE 100 UNITS/ML SUB-Q ONE (04:57)
[2022-01-18] MEDS ORDERED: INSULIN LISPRO 100 UNIT/ML SUB-Q SCH ×2 (06:00→11:30)
[2022-01-18] MEDS ORDERED: INSULIN GLARGINE 100 UNITS/ML SUB-Q SCH (08:00)
[2022-01-18] MEDS: ceFAZolin/NS 1 GM/50 ML 1 GM/50 ML BAG IV SCH ×2 (08:10→18:30)
[2022-01-18] MEDS ORDERED: INSULIN REGULAR, HUMAN 100 UNITS/1 ML SUB-Q ONE (08:50)
[2022-01-18] MEDS: NIFEdipine XL 30 MG TAB PO SCH ×3 (08:53→21:37)
--- NOTE | 2022-01-18 08:59 | Progress Note ---
Assessment and Plan A: POD#1 s/p primary section at 36w1d Chronic Hypertension with superimposed preeclampsia on magnesium sulfate for seizure prophylaxis Type 1 Diabetes Mellitus, poorly controlled; status post hospitalist consult Bipolar Disorder GBS unknown P: Continue current management plan Subjective - Subjective Date of service: 01/18/22 Principal diagnosis: s/p , cHTN, poorly controlled Type 1 Diabetes Mellitus, Bipolar Di Interval history: Pt with elevated blood sugars overnight. Internal medicine consulted for insulin recommendations. Insulin decreasing now. Patient n.p.o. except for ice chips and sips of water. Plus flatus. Rebollar in place however patient requests removal and use of bedside commode and spite of being told magnesium presents a fall risk. Patient reports: appetite normal, pain well controlled, flatus, no voiding normally (Rebollar in place), no bowel movement, no ambulating normally (SCDs in place) : in NICU Objective - Vital Signs Latest vital signs: Vital Signs Temp Pulse Resp BP BP Pulse Ox 01/18/22 08:54 92 H 99 01/18/22 08:53 87 143/77 01/18/22 08:49 82 99 01/18/22 08:44 84 100 01/18/22 08:39 83 99 01/18/22 08:34 91 H 99 01/18/22 08:29 83 100 01/18/22 08:24 81 100 01/18/22 08:20 88 153/77 01/18/22 08:19 87 100 01/18/22 08:14 92 H 99 01/18/22 08:09 92 H 100 01/18/22 08:04 89 99 01/18/22 07:59 87 100 01/18/22 07:54 92 H 98 01/18/22 07:49 91 H 98 01/18/22 07:44 101 H 99 01/18/22 07:25 94 H 100 01/18/22 07:20 89 99 01/18/22 07:15 92 H 100 01/18/22 07:10 85 99 01/18/22 07:05 87 99 01/18/22 07:00 92 H 156/81 99 01/18/22 06:55 90 99 01/18/22 06:50 96 H 99 01/18/22 06:45 88 98 01/18/22 06:40 99 H 99 01/18/22 06:35 85 98 01/18/22 06:30 84 99 01/18/22 06:25 86 99 01/18/22 06:20 87 159/88 98 01/18/22 06:15 94 H 98 01/18/22 06:10 94 H 98 01/18/22 06:05 89 98 01/18/22 06:00 87 99 01/18/22 05:55 91 H 100 01/18/22 05:50 97 H 99 01/18/22 05:45 89 99 01/18/22 05:40 94 H 145/77 99 01/18/22 05:35 85 99 01/18/22 05:30 89 100 01/18/22 05:25 96 H 100 01/18/22 05:20 96 H 99 01/18/22 05:15 93 H 99 01/18/22 05:10 86 99 01/18/22 05:05 89 99 01/18/22 05:00 89 146/74 98 01/18/22 04:55 89 98 01/18/22 04:50 91 H 99 01/18/22 04:45 92 H 99 01/18/22 04:40 92 H 99 01/18/22 04:35 104 H 99 01/18/22 04:30 99 H 100 01/18/22 04:25 101 H 98 01/18/22 04:20 96 H 99 01/18/22 04:15 100 H 99 01/18/22 04:10 102 H 99 01/18/22 04:05 92 H 99 01/18/22 04:03 96 H 18 138/74 138/74 01/18/22 04:00 99 H 99 01/18/22 03:55 97 H 97 01/18/22 03:50 98 H 98 01/18/22 03:45 111 H 98 01/18/22 03:43 100 H 141/80 01/18/22 03:40 96 H 99 01/18/22 03:35 95 H 100 01/18/22 03:30 104 H 99 01/18/22 03:25 96 H 99 01/18/22 03:21 96 H 148/75 01/18/22 03:20 96 H 17 148/75 99 01/18/22 03:15 95 H 99 01/18/22 03:10 98 H 100 01/18/22 03:05 96 H 99 01/18/22 03:00 102 H 98 01/18/22 02:55 99 H 97 01/18/22 02:50 98 H 99 01/18/22 02:45 89 99 01/18/22 02:44 136 H 84 01/18/22 02:43 90 18 168/92 149/88 01/18/22 02:41 95 H 168/93 01/18/22 02:38 90 149/88 01/18/22 02:33 92 H 17 168/93 168/93 01/18/22 02:28 92 H 18 157/91 157/91 01/18/22 02:24 89 01/18/22 02:23 104 H 17 159/96 159/96 01/18/22 02:18 93 H 183/80 01/18/22 02:13 93 H 18 186/96 186/96 83 L 01/18/22 02:09 100 H 99 01/18/22 02:08 102 H 17 144/92 144/92 99 01/18/22 02:04 91 H 98 01/18/22 01:59 99 H 99 01/18/22 01:54 102 H 98 01/18/22 01:49 94 H 99 01/18/22 01:47 113 H 17 190/102 190/102 99 01/18/22 01:44 91 H 100 01/18/22 01:39 93 H 100 01/18/22 01:34 96 H 99 01/18/22 01:29 94 H 99 01/18/22 01:24 96 H 100 01/18/22 01:19 102 H 99 01/18/22 01:14 97 H 100 01/18/22 01:09 90 100 01/18/22 01:04 93 H 100 01/18/22 01:02 101 H 18 164/90 164/90 100 01/18/22 00:59 89 98 01/18/22 00:54 88 99 01/18/22 00:49 88 100 01/18/22 00:44 90 100 01/18/22 00:39 97 H 99 01/18/22 00:34 91 H 99 01/18/22 00:29 99 H 99 01/18/22 00:24 106 H 98 01/18/22 00:22 92 H 94 01/18/22 00:19 98 H 99 01/18/22 00:17 103 H 18 159/103 159/103 99 01/18/22 00:14 98 H 99 01/18/22 00:09 108 H 100 01/18/22 00:04 104 H 100 01/17/22 23:59 97 H 99 01/17/22 23:54 87 99 01/17/22 23:49 78 97 01/17/22 23:44 84 99 01/17/22 23:39 87 98 01/17/22 23:34 81 99 01/17/22 23:29 84 98 01/17/22 23:24 85 98 01/17/22 23:19 83 98 01/17/22 23:14 87 156/85 98 01/17/22 23:09 82 98 01/17/22 23:04 79 98 01/17/22 22:59 70 100 01/17/22 22:54 81 100 01/17/22 22:49 79 100 01/17/22 22:44 81 17 154/86 154/86 100 01/17/22 22:39 88 98 01/17/22 22:34 79 100 01/17/22 22:29 82 100 01/17/22 22:24 82 100 01/17/22 22:19 79 100 01/17/22 22:14 83 17 150/83 156/85 98 01/17/22 22:09 86 99 01/17/22 22:04 85 100 01/17/22 21:59 86 99 01/17/22 21:54 83 100 01/17/22 21:49 95 H 99 01/17/22 21:44 90 18 126/83 126/83 100 01/17/22 21:39 84 100 01/17/22 21:34 89 100 01/17/22 21:29 93 H 100 01/17/22 21:24 88 100 01/17/22 21:19 83 99 01/17/22 21:14 79 17 155/88 155/88 100 01/17/22 21:09 81 100 01/17/22 21:04 83 100 01/17/22 20:59 81 100 01/17/22 20:54 83 98 01/17/22 20:44 85 132/80 99 01/17/22 20:39 84 99 01/17/22 19:33 97.5 F L 66 14 179/102 98 01/17/22 19:30 80 14 144/85 98 01/17/22 19:15 64 18 173/100 99 01/17/22 19:05 64 18 172/105 99 01/17/22 18:53 182/105 01/17/22 18:50 62 17 182/105 98 01/17/22 18:45 62 22 178/105 97 01/17/22 18:40 62 21 173/110 99 01/17/22 18:35 97.6 F 60 20 172/100 99 01/17/22 16:15 98.2 F 18 01/17/22 15:15 53 L 01/17/22 15:13 63 63 L 01/17/22 15:09 63 59 L 01/17/22 15:02 68 100 01/17/22 14:57 54 L 100 01/17/22 14:53 89 01/17/22 14:52 67 89 01/17/22 14:47 82 L 01/17/22 14:42 99 H 151/94 94 01/17/22 14:39 94 H 100 01/17/22 14:34 86 98 01/17/22 14:29 80 100 01/17/22 14:24 77 98 01/17/22 14:19 77 97 01/17/22 14:14 75 98 01/17/22 14:13 79 148/89 01/17/22 14:09 79 99 01/17/22 14:04 73 99 01/17/22 13:59 73 99 01/17/22 13:54 87 99 01/17/22 13:49 82 99 01/17/22 13:47 92 H 94 01/17/22 13:44 73 93 01/17/22 13:41 83 169/86 94 01/17/22 13:39 79 94 01/17/22 13:34 76 94 01/17/22 13:29 88 95 01/17/22 13:28 86 94 01/17/22 13:24 74 95 01/17/22 13:22 75 94 01/17/22 13:19 76 94 01/17/22 13:17 76 94 01/17/22 13:14 75 94 01/17/22 13:12 74 171/82 01/17/22 13:11 81 94 01/17/22 13:09 76 95 01/17/22 13:04 82 95 01/17/22 12:59 71 96 01/17/22 12:55 87 94 01/17/22 12:54 87 94 01/17/22 12:50 86 93 01/17/22 12:49 84 92 01/17/22 12:44 87 98 01/17/22 12:42 75 158/81 94 01/17/22 12:39 72 97 01/17/22 12:34 84 95 01/17/22 12:29 82 95 01/17/22 12:24 85 96 01/17/22 12:19 80 95 01/17/22 12:14 83 98 01/17/22 12:12 76 154/83 01/17/22 12:09 92 H 97 01/17/22 12:04 82 98 01/17/22 11:59 100 H 97 01/17/22 11:54 87 97 01/17/22 11:49 94 H 98 01/17/22 11:44 92 H 100 01/17/22 11:41 84 155/79 01/17/22 11:39 87 98 01/17/22 11:34 83 98 01/17/22 11:33 98.3 F 18 01/17/22 11:29 81 100 01/17/22 11:24 79 100 01/17/22 11:19 70 98 01/17/22 11:14 72 99 01/17/22 11:12 89 165/106 01/17/22 11:09 83 97 01/17/22 11:04 89 100 01/17/22 11:02 97 H 94 01/17/22 10:59 92 H 97 01/17/22 10:54 91 H 96 01/17/22 10:49 78 98 01/17/22 10:44 72 99 01/17/22 10:42 75 164/90 01/17/22 10:39 86 98 01/17/22 10:34 78 99 01/17/22 10:29 79 99 01/17/22 10:24 80 99 01/17/22 10:19 90 99 01/17/22 10:14 85 99 01/17/22 10:12 79 151/84 01/17/22 10:09 90 98 01/17/22 10:04 89 99 01/17/22 09:59 80 99 01/17/22 09:54 78 99 01/17/22 09:49 76 99 01/17/22 09:44 89 98 01/17/22 09:42 81 143/86 01/17/22 09:39 76 99 01/17/22 09:34 74 99 01/17/22 09:29 81 99 01/17/22 09:24 89 99 01/17/22 09:19 89 98 01/17/22 09:14 78 98 01/17/22 09:12 76 149/78 01/17/22 09:09 79 98 01/17/22 09:04 78 98 01/17/22 08:59 75 99 Intake and Output 01/17/22 01/18/22 01/18/22 22:59 06:59 14:59 Intake Total 500 875 Output Total 1000 500 Balance -500 375 Intake: IV 500 875 Lactated Ringers 1,000 ml 250 375 @ 125 mls/hr IV DIRECT CL[facility] Rx#:[id number] MAGNESIUM SULFATE 40GM/ 150 350 1000ML 40 gm In 1,000 ml @ 2 GM/HR 50 mls/hr IV DIRECT CLARE Rx#:[id number] MAGNESIUM SULFATE 4GM/ 100 100ML 4 gm In 100 ml @ 300 mls/hr IV ONCE ONE Rx #:[id number] NaCl 0.9% 1000 ml 1,000 150 ml @ 100 mls/hr IV DIRECT CLARE Rx#:[id number] Output: Urine 1000 500 Indwelling Catheter 900 500 Void 100 Other: Total, Output Amount 300 500 Estimated Blood Loss 301 - Exam Breasts: Present: deferred Abdomen: Present: soft Extremities: Present: edema (Trace) - Labs Labs: Abnormal lab results 01/17/22 01/17/22 01/17/22 Range/Units 06:56 11:11 14:55 MCH (28-32) pg RDW (13.2-15.2) % Sodium (137-145) mmol/L Chloride (98-107) mmol/L Carbon Dioxide (22-30) mmol/L BUN (7-17) mg/dL Glucose (65-100) mg/dL POC Glucose 236 H 268 H 240 H (70-105) mg/dL Hemoglobin A1c (4-6) % Calcium (8.4-10.2) mg/dL Magnesium (1.7-2.3) mg/dL Lactate Dehydrogenase (91-180) units/L 01/17/22 01/17/22 01/17/22 Range/Units 15:40 15:40 21:05 MCH 33 H (28-32) pg RDW 13.1 L (13.2-15.2) % Sodium (137-145) mmol/L Chloride (98-107) mmol/L Carbon Dioxide (22-30) mmol/L BUN (7-17) mg/dL Glucose (65-100) mg/dL POC Glucose 161 H (70-105) mg/dL Hemoglobin A1c (4-6) % Calcium (8.4-10.2) mg/dL Magnesium (1.7-2.3) mg/dL Lactate Dehydrogenase 194 H (91-180) units/L 01/18/22 01/18/22 01/18/22 Range/Units 02:05 02:38 03:30 MCH (28-32) pg RDW (13.2-15.2) % Sodium 126 L (137-145) mmol/L Chloride 93.5 L (98-107) mmol/L Carbon Dioxide 21 L (22-30) mmol/L BUN 5 L (7-17) mg/dL Glucose 563 H* (65-100) mg/dL POC Glucose 447 H 518 H (70-105) mg/dL Hemoglobin A1c (4-6) % Calcium 8.0 L (8.4-10.2) mg/dL Magnesium (1.7-2.3) mg/dL Lactate Dehydrogenase (91-180) units/L 01/18/22 01/18/22 01/18/22 Range/Units 03:30 03:30 05:07 MCH (28-32) pg RDW (13.2-15.2) % Sodium (137-145) mmol/L Chloride (98-107) mmol/L Carbon Dioxide (22-30) mmol/L BUN (7-17) mg/dL Glucose (65-100) mg/dL POC Glucose 516 H (70-105) mg/dL Hemoglobin A1c 7.6 H (4-6) % Calcium (8.4-10.2) mg/dL Magnesium 5.20 H (1.7-2.3) mg/dL Lactate Dehydrogenase (91-180) units/L 01/18/22 Range/Units 06:27 MCH (28-32) pg RDW (13.2-15.2) % Sodium (137-145) mmol/L Chloride (98-107) mmol/L Carbon Dioxide (22-30) mmol/L BUN (7-17) mg/dL Glucose (65-100) mg/dL POC Glucose 440 H (70-105) mg/dL Hemoglobin A1c (4-6) % Calcium (8.4-10.2) mg/dL Magnesium (1.7-2.3) mg/dL Lactate Dehydrogenase (91-180) units/L
[2022-01-18] MEDS: FERROUS SULFATE 325 MG TAB PO SCH (10:00)
--- NOTE | 2022-01-18 10:59 | Post Anesthesia Evaluation ---
- Post Anesthesia Evaluation Patient Participated: Yes Airway Patent: Yes Stable Respiratory Function: Yes Nausea/Vomiting: No Temp > 96.8F: Yes Pain Manageable: Yes Adequeate Hydration: Yes Anesthesia Complications: No Block Receding Appropriately: Yes Patient on Ventilator: No
[2022-01-18] MEDS ORDERED: LORazepam 2 MG/ML VIAL IV ONE (11:50)
--- NOTE | 2022-01-18 11:57 | Event Note ---
Date: 01/18/22 On-call physician notified by pt's RN that she is very upset and anxious after having an outburst in the NICU when she was asked to leave that unit, as well as a disagreement with her mother that involved yelling and profanity. A Psych consult was placed, however the person who completed those consults has already left for the day, and the patient is not able to be evaluated until tomorrow. Per her nurse, the patient is crying uncontrollably. Ativan 2 mg IM once ordered. Plan to continue to monitor clinical status and administer additional doses PRN.
--- NOTE | 2022-01-18 14:01 | Event Note ---
Date: 01/18/22 The patient's hyperglycemia has significantly improved with the most recent documented [id number] glucose 223. IV fluid resuscitation has been discontinued. The patient can be transitioned to a carbohydrate/cardiac controlled diet. Patient will continue with her home insulin regimen of Lantus 20 units every morning and 32 units every afternoon. The patient is also been started on [id number] glucose checks with meals and a moderate sliding scale. These recommendations have been discussed with Dr. Mckeon. Please feel free to reach out should any questions arise.
[2022-01-18] MEDS: FAMOTIDINE 20 MG/2 ML INJ IV SCH (14:53)
[2022-01-18] MEDS: INSULIN LISPRO 100 UNIT/ML SUB-Q SCH (19:00)
[2022-01-18] MEDS ORDERED: MEASLES, MUMPS & RUBELLA 12,500 UNIT/0.5 ML VACCINE SUB-Q ONE (19:03)
[2022-01-18] MEDS: oxyCODONE /ACETAMINOPHEN 5-325MG TAB PO PRN (21:38)
[2022-01-19] MEDS: oxyCODONE /ACETAMINOPHEN 5-325MG TAB PO PRN ×3 (01:24→21:42)
[2022-01-19] MEDS: ZOLPIDEM 5 MG TAB PO SCH ×2 (01:41→21:42)
[2022-01-19] MEDS ORDERED: TETANUS,DIPH,PERTUSS(ACELL) VACCINE 0.5 ML SYRINGE IM ONE (06:00)
[2022-01-19] MEDS: INSULIN LISPRO 100 UNIT/ML SUB-Q SCH ×4 (06:31→18:37)
--- NOTE | 2022-01-19 07:54 | Progress Note ---
Assessment and Plan - Patient Problems (1) Chronic hypertension affecting Current Visit: No Status: Acute Plan to address problem: Continue current plan of care Discharge pending evaluation by psychiatry (2) Diabetes mellitus affecting Current Visit: No Status: Acute Subjective - Subjective Date of service: 01/19/22 Principal diagnosis: s/p , cHTN, poorly controlled Type 1 Diabetes Mellitus, Bipolar Di Interval history: Patient is postoperative day #2 status post a primary delivery for failed induction. The patient is without any significant complaints today. She is scheduled to be evaluated by psychiatry today. Fasting glucose this morning 195. She remains normotensive on antihypertensive meds. Patient reports: appetite normal, voiding normally, pain well controlled : in NICU Objective - Vital Signs Latest vital signs: Vital Signs Temp Pulse Resp BP BP BP Pulse Ox 01/19/22 04:40 97.8 F 98 H 18 125/75 99 01/19/22 01:42 97.7 F 85 18 137/95 99 01/19/22 01:24 16 01/18/22 22:06 01/18/22 21:38 16 01/18/22 21:00 97.9 F 105 H 16 138/79 100 01/18/22 19:56 91 H 99 01/18/22 19:51 88 99 01/18/22 19:46 102 H 99 01/18/22 19:41 99 H 99 01/18/22 19:36 104 H 99 01/18/22 19:31 107 H 99 01/18/22 19:26 104 H 99 01/18/22 19:21 105 H 99 01/18/22 19:16 122 H 99 01/18/22 19:11 109 H 124/64 98 01/18/22 19:08 98.2 F 18 98 01/18/22 19:06 106 H 98 01/18/22 18:54 105 H 131/76 98 01/18/22 18:49 96 H 99 01/18/22 18:44 92 H 98 01/18/22 18:39 100 H 98 01/18/22 18:34 101 H 98 01/18/22 18:29 104 H 98 01/18/22 18:24 113 H 98 01/18/22 18:19 116 H 99 01/18/22 18:14 128 H 99 01/18/22 18:09 129 H 135/81 100 01/18/22 18:04 101 H 99 01/18/22 17:59 101 H 98 01/18/22 17:54 102 H 98 01/18/22 17:49 102 H 98 01/18/22 17:44 100 H 98 01/18/22 17:39 99 H 98 01/18/22 17:34 97 H 98 01/18/22 17:29 99 H 98 01/18/22 17:24 101 H 112/59 99 01/18/22 17:18 100 H 98 01/18/22 17:13 98 H 99 01/18/22 17:08 96 H 98 01/18/22 17:04 104 H 85 01/18/22 17:03 107 H 94 01/18/22 16:58 102 H 99 01/18/22 16:53 109 H 99 01/18/22 16:48 105 H 98 01/18/22 16:43 93 H 98 01/18/22 16:39 97 H 118/66 01/18/22 16:38 98 H 98 01/18/22 16:33 103 H 98 01/18/22 16:28 99 H 98 01/18/22 16:23 98 H 98 01/18/22 16:18 95 H 97 01/18/22 16:13 95 H 98 01/18/22 16:08 94 H 98 01/18/22 16:03 92 H 98 01/18/22 15:58 94 H 98 01/18/22 15:54 95 H 112/55 01/18/22 15:53 92 H 98 01/18/22 15:48 93 H 98 01/18/22 15:43 94 H 99 01/18/22 15:38 90 99 01/18/22 15:33 91 H 99 01/18/22 15:28 91 H 99 01/18/22 15:23 92 H 99 01/18/22 15:18 91 H 99 01/18/22 15:13 92 H 98 01/18/22 15:08 91 H 98 01/18/22 15:05 136 H 83 L 01/18/22 15:03 108 H 99 01/18/22 14:58 117 H 100 01/18/22 14:53 98 H 99 01/18/22 14:48 101 H 100 01/18/22 14:43 102 H 99 01/18/22 14:41 90 118/66 01/18/22 14:38 95 H 99 01/18/22 14:33 89 99 01/18/22 14:28 88 99 01/18/22 14:23 91 H 99 01/18/22 14:21 90 115/63 01/18/22 14:18 91 H 99 01/18/22 14:13 88 99 01/18/22 14:08 91 H 99 01/18/22 14:03 88 99 01/18/22 14:01 88 109/60 01/18/22 13:58 91 H 99 01/18/22 13:53 89 99 01/18/22 13:48 89 99 01/18/22 13:43 89 99 01/18/22 13:41 92 H 111/63 01/18/22 13:38 85 99 01/18/22 13:33 91 H 99 01/18/22 13:28 90 99 01/18/22 13:23 91 H 99 01/18/22 13:21 89 115/60 01/18/22 13:18 87 99 01/18/22 13:13 94 H 100 01/18/22 13:08 94 H 98 01/18/22 13:03 95 H 98 01/18/22 13:00 97.7 F 01/18/22 12:58 97 H 98 01/18/22 12:53 95 H 100 01/18/22 12:52 92 H 134/69 01/18/22 12:48 102 H 100 01/18/22 12:43 90 100 01/18/22 12:42 95 H 154/74 01/18/22 12:38 105 H 100 01/18/22 12:33 127 H 100 01/18/22 12:28 96 H 100 01/18/22 12:23 95 H 100 01/18/22 12:22 86 161/94 01/18/22 12:18 91 H 99 01/18/22 12:13 96 H 99 01/18/22 12:08 89 99 01/18/22 12:07 91 H 163/99 01/18/22 12:03 88 100 01/18/22 11:58 91 H 99 01/18/22 11:53 102 H 100 01/18/22 11:52 96 H 176/100 01/18/22 11:48 99 H 100 01/18/22 11:43 100 H 100 01/18/22 11:38 94 H 100 01/18/22 11:33 98 H 100 01/18/22 11:28 99 H 99 01/18/22 11:23 94 H 100 01/18/22 11:21 100 H 165/95 01/18/22 11:18 115 H 100 01/18/22 11:13 89 100 01/18/22 11:08 115 H 100 01/18/22 11:04 86 179/105 01/18/22 11:03 89 98 01/18/22 09:09 99 H 100 01/18/22 09:04 91 H 99 01/18/22 09:00 89 166/85 01/18/22 08:59 91 H 100 01/18/22 08:55 01/18/22 08:54 97.8 F 86 16 143/77 99 01/18/22 08:53 87 143/77 01/18/22 08:49 82 99 01/18/22 08:44 84 100 01/18/22 08:39 83 99 01/18/22 08:34 91 H 99 01/18/22 08:29 83 100 01/18/22 08:24 81 100 01/18/22 08:20 88 153/77 01/18/22 08:19 87 100 01/18/22 08:14 92 H 99 01/18/22 08:09 92 H 100 01/18/22 08:04 89 99 01/18/22 07:59 87 100 01/18/22 07:54 92 H 98 Pulse Ox 01/19/22 04:40 01/19/22 01:42 01/19/22 01:24 01/18/22 22:06 100 01/18/22 21:38 01/18/22 21:00 01/18/22 19:56 01/18/22 19:51 01/18/22 19:46 01/18/22 19:41 01/18/22 19:36 01/18/22 19:31 01/18/22 19:26 01/18/22 19:21 01/18/22 19:16 01/18/22 19:11 01/18/22 19:08 01/18/22 19:06 01/18/22 18:54 01/18/22 18:49 01/18/22 18:44 01/18/22 18:39 01/18/22 18:34 01/18/22 18:29 01/18/22 18:24 01/18/22 18:19 01/18/22 18:14 01/18/22 18:09 01/18/22 18:04 01/18/22 17:59 01/18/22 17:54 01/18/22 17:49 01/18/22 17:44 01/18/22 17:39 01/18/22 17:34 01/18/22 17:29 01/18/22 17:24 01/18/22 17:18 01/18/22 17:13 01/18/22 17:08 01/18/22 17:04 01/18/22 17:03 01/18/22 16:58 01/18/22 16:53 01/18/22 16:48 01/18/22 16:43 01/18/22 16:39 01/18/22 16:38 01/18/22 16:33 01/18/22 16:28 01/18/22 16:23 01/18/22 16:18 01/18/22 16:13 01/18/22 16:08 01/18/22 16:03 01/18/22 15:58 01/18/22 15:54 01/18/22 15:53 01/18/22 15:48 01/18/22 15:43 01/18/22 15:38 01/18/22 15:33 01/18/22 15:28 01/18/22 15:23 01/18/22 15:18 01/18/22 15:13 01/18/22 15:08 01/18/22 15:05 01/18/22 15:03 01/18/22 14:58 01/18/22 14:53 01/18/22 14:48 01/18/22 14:43 01/18/22 14:41 01/18/22 14:38 01/18/22 14:33 01/18/22 14:28 01/18/22 14:23 01/18/22 14:21 01/18/22 14:18 01/18/22 14:13 01/18/22 14:08 01/18/22 14:03 01/18/22 14:01 01/18/22 13:58 01/18/22 13:53 01/18/22 13:48 01/18/22 13:43 01/18/22 13:41 01/18/22 13:38 01/18/22 13:33 01/18/22 13:28 01/18/22 13:23 01/18/22 13:21 01/18/22 13:18 01/18/22 13:13 01/18/22 13:08 01/18/22 13:03 01/18/22 13:00 01/18/22 12:58 01/18/22 12:53 01/18/22 12:52 01/18/22 12:48 01/18/22 12:43 01/18/22 12:42 01/18/22 12:38 01/18/22 12:33 01/18/22 12:28 01/18/22 12:23 01/18/22 12:22 01/18/22 12:18 01/18/22 12:13 01/18/22 12:08 01/18/22 12:07 01/18/22 12:03 01/18/22 11:58 01/18/22 11:53 01/18/22 11:52 01/18/22 11:48 01/18/22 11:43 01/18/22 11:38 01/18/22 11:33 01/18/22 11:28 01/18/22 11:23 01/18/22 11:21 01/18/22 11:18 01/18/22 11:13 01/18/22 11:08 01/18/22 11:04 01/18/22 11:03 01/18/22 09:09 01/18/22 09:04 01/18/22 09:00 01/18/22 08:59 01/18/22 08:55 99 01/18/22 08:54 01/18/22 08:53 01/18/22 08:49 01/18/22 08:44 01/18/22 08:39 01/18/22 08:34 01/18/22 08:29 01/18/22 08:24 01/18/22 08:20 01/18/22 08:19 01/18/22 08:14 01/18/22 08:09 01/18/22 08:04 01/18/22 07:59 01/18/22 07:54 Intake and Output 01/18/22 01/19/22 01/19/22 22:59 06:59 14:59 Intake Total 360 240 Balance 360 240 Intake: Oral 120 240 Intake, Free Water 240 Other: Total, Intake Amount 120 120 # Voids Void 1 1 - Labs Labs: Abnormal lab results 01/18/22 01/18/22 01/18/22 Range/Units 08:17 12:44 12:47 POC Glucose 367 H 223 H (70-105) mg/dL Magnesium 6.00 H (1.7-2.3) mg/dL 01/18/22 01/18/22 01/18/22 Range/Units 18:38 18:55 21:35 POC Glucose 68 L 110 H (70-105) mg/dL Magnesium 5.50 H (1.7-2.3) mg/dL 01/19/22 01/19/22 Range/Units 01:34 06:20 POC Glucose 117 H 195 H (70-105) mg/dL Magnesium (1.7-2.3) mg/dL
[2022-01-19] MEDS: INSULIN GLARGINE 100 UNITS/ML SUB-Q SCH ×2 (08:24→21:42)
[2022-01-19] MEDS: FERROUS SULFATE 325 MG TAB PO SCH (10:10)
[2022-01-19] MEDS: NIFEdipine XL 30 MG TAB PO SCH ×2 (10:10→21:37)
--- NOTE | 2022-01-19 12:18 | Consultation ---
History of Present Illness - Reason for Consult Consult date: 01/19/22 Reason for consult: depression - History of Present Psychiatric Illness The patient was seen today. She was admitted for induction of labor. The patient is sleeping, but she easily arouses. She says she's been depressed and anxious more lately. She says she suffered from depression, bipolar and anxiety since she was young. She says she was on latuda and wellbutrin. The patient says she has taken the wellburtin on and off. She says she hasn't gone to see her psychiatrist in awhile. She says she lives with her mother, and her and the child's father are going to co-parent. She denies SI/HI or hallucinations. The patient also denies any illicit drug use, alcohol or nicotine. PAST PSYCHIATRIC HISTORY: Diagnoses: Bipolar, depression and anxiety Suicide attempts or Self-harm behavior: Denies Prior psychiatric hospitalizations: Denies Substance Abuse history: denies Previous psychiatric medications tried: latuda, wellbutrin Outpatient treatment: Yes PAST MEDICAL HISTORY: None reported Family Psychiatric History: None reported or documented SOCIAL HISTORY Marital Status: Single Living Arrangements: Lives with mother Employment Status: unemployed Access to guns/weapons: Denies Education: High school History of Abuse:Denies Legal History: Denies REVIEW OF SYSTEMS Constitutional: Negative for weight loss ENT: Negative for stridor Respiratory: Negative for cough or hemoptysis All other systems reviewed and are negative MENTAL STATUS EXAMINATION General Appearance and Behavior: Age appropriate, wearing appropriate clothes, cooperative, polite with questioning, good eye contact Cooperation: cooperative Psychomotor Behavior: Psychomotor normal Mood: Depressed Affect and affective range: congruent with stated affect Thought Process: goal directed Thought Content: None Speech: Normal volume, Regular rate and rhythm Suicidal Ideation: Denies Homicidal Ideation: Denies Hallucination: Denies Delusions: None elicited Impulse Control: Limited Insight and Judgment: Limited Memory: Intact Attention: attentive Orientation: Alert and oriented Diagnoses: Bipolar Disorder Treatment Plan Latuda 20mg po daily Wellbutrin 100mg po daily Medical: per primary Disposition: Do not recommend acute psychiatric inpatient treatment The patient to follow up with outpatient psych in 7 to 14 days upon discharge The lead customer service representative to give all necessary outpatient resources Will sign off. Thanks Case staffed with Dr. Beckford Medications and Allergies Allergies Allergy/AdvReac Type Severity Reaction Status Date / Time [facility] Allergy Rash Verified 08/24/13 07:30 latex Allergy Itching Verified 12/19/21 18:24 Home Medications Medication Instructions Recorded Confirmed Last Taken Type Insulin Regular, Human 12 units SUB-Q BID 12/19/21 12/19/21 12/19/21 History Lantus VIAL 30 units SUB-Q BID 12/19/21 12/19/21 12/19/21 History Tablet 1 tab PO DAILY 12/19/21 12/19/21 12/19/21 History Wellbutrin 1 tab PO DAILY 12/19/21 12/19/21 12/15/21 History Ibuprofen [Motrin] 800 mg PO Q8HR PRN #60 tablet 01/19/22 Unknown Rx Lurasidone HCl [Latuda] 20 mg PO QDAY #30 01/19/22 Unknown Rx NIFEdipine XL [Procardia Xl] 30 mg PO Q12HR #60 tab 01/19/22 Unknown Rx buPROPion [Wellbutrin] 100 mg PO DAILY #30 tab 01/19/22 Unknown Rx oxyCODONE /ACETAMINOPHEN [Percocet 1 tab PO Q6HR PRN #30 tablet 01/19/22 Unknown Rx 5/325] Active Meds: Active Medications Acetaminophen (Acetaminophen 325 Mg Tab) 650 mg PO Q4H PRN PRN Reason: Pain, Mild (1-3) Carboprost Tromethamine (Carboprost Tromethamine 250 Mcg/1 Ml Inj) 250 mcg IM ONCE PRN PRN Reason: Uterine Bleeding Dextrose (Dextrose 50% In Water (25gm) 50 Ml Syringe) 50 ml IV Q30MIN PRN; Protocol PRN Reason: Hypoglycemia Ephedrine Sulfate (Ephedrine Sulfate 50 Mg/1 Ml Inj) 10 mg IV Q2M PRN PRN Reason: Hypotension Ferrous Sulfate (Ferrous Sulfate 325 Mg Tab) 325 mg PO QDAY CLARE Last Admin: 01/19/22 10:10 Dose: 325 mg Hydralazine HCl (Hydralazine 20 Mg/1 Ml Inj) 10 mg IV Q20MIN PRN PRN Reason: Hypertension Last Admin: 01/18/22 11:08 Dose: 10 mg Hydromorphone HCl (Hydromorphone 0.5 Mg/0.5 Ml Inj) 0.25 mg IV Q3H PRN PRN Reason: Pain, Moderate (4-6) Hydromorphone HCl (Hydromorphone 0.5 Mg/0.5 Ml Inj) 0.5 mg IV Q3H PRN PRN Reason: Pain , Severe (7-10) Last Admin: 01/18/22 09:02 Dose: 0.5 mg Ibuprofen (Ibuprofen 800 Mg Tab) 800 mg PO Q6H PRN PRN Reason: Pain, Moderate (4-6) Insulin Glargine (Insulin Glargine 100 Units/Ml) 32 units SUB-Q QHS [facility] Last Admin: 01/18/22 21:39 Dose: 32 units Insulin Glargine (Insulin Glargine 100 Units/Ml) 20 units SUB-Q QAMDIAB [facility] Last Admin: 01/19/22 08:24 Dose: 20 units Insulin Human Lispro (Insulin Lispro 100 Unit/Ml) 0 unit SUB-Q Q6HR [facility]; Protocol Last Admin: 01/19/22 12:00 Dose: Not Given Labetalol HCl (Labetalol 20 Mg/4 Ml Inj) 20 mg IV ONCE PRN PRN Reason: Hypertension Loperamide HCl (Loperamide 2 Mg Cap) 2 mg PO ONCE PRN PRN Reason: give with Hemabate Multi-Ingredient Ointment (Lanolin/Zinc/Dimethicone (Lansinoh) 7 Gm) 1 applic TP PRN PRN PRN Reason: dryness/cracking Naloxone HCl (Naloxone 0.4 Mg/1 Ml Inj) 0.1 mg IV Q2MIN PRN PRN Reason: Res Rate </= 8 or 02 SAT < 92% Nifedipine (Nifedipine Xl 30 Mg Tab) 30 mg PO Q12HR [facility] Last Admin: 01/19/22 10:10 Dose: 30 mg Ondansetron HCl (Ondansetron 4 Mg/2 Ml Inj) 4 mg IV Q8H PRN PRN Reason: Nausea And Vomiting Oxycodone/Acetaminophen (Oxycodone /Acetaminophen 5-325mg Tab) 2 tab PO Q4H PRN PRN Reason: Pain, Moderate (4-6) Last Admin: 01/19/22 10:20 Dose: 1 tab Simethicone (Simethicone 80 Mg Chew Tab) 80 mg PO Q6H PRN PRN Reason: Gas pain Last Admin: 01/18/22 08:12 Dose: 80 mg Sodium Chloride (Sodium Chloride 0.9% 10 Ml Flush Syringe) 10 ml IV PRN PRN PRN Reason: LINE FLUSH Zolpidem Tartrate (Zolpidem 5 Mg Tab) 10 mg PO QHS [facility]ARE Last Admin: 01/19/22 01:41 Dose: 10 mg Mental Status Exam - Vital signs Last Vital Signs Temp 98.8 F 01/19/22 11:42 Pulse 87 01/19/22 11:42 Resp 18 01/19/22 11:42 BP 143/92 01/19/22 11:42 Pulse Ox 100 01/19/22 11:42 Results Result Diagrams: 01/18/22 03:30 01/18/22 03:30 Abnormal lab results 01/18/22 01/18/22 01/18/22 Range/Units 08:17 12:44 12:47 POC Glucose 367 H 223 H (70-105) mg/dL Magnesium 6.00 H (1.7-2.3) mg/dL 01/18/22 01/18/22 01/18/22 Range/Units 18:38 18:55 21:35 POC Glucose 68 L 110 H (70-105) mg/dL Magnesium 5.50 H (1.7-2.3) mg/dL 01/19/22 01/19/22 Range/Units 01:34 06:20 POC Glucose 117 H 195 H (70-105) mg/dL Magnesium (1.7-2.3) mg/dL All other labs normal.
[2022-01-19] MEDS: buPROPion 100 MG TAB PO SCH (16:03)
[2022-01-20] MEDS: INSULIN LISPRO 100 UNIT/ML SUB-Q SCH ×2 (00:35→06:39)
[2022-01-20 01:22] LABS: BUN/Creatinine Ratio 11; Blood Urea Nitrogen 9 mg/dL (7-17); Calcium 8.2 mg/dL (8.4-10.2); Hemolysis Index 1
[2022-01-20] MEDS: oxyCODONE /ACETAMINOPHEN 5-325MG TAB PO PRN ×2 (04:18→10:10)
[2022-01-20] MEDS: INSULIN GLARGINE 100 UNITS/ML SUB-Q SCH (07:46)
[2022-01-20] MEDS: FERROUS SULFATE 325 MG TAB PO SCH (10:04)
[2022-01-20] MEDS: NIFEdipine XL 30 MG TAB PO SCH (10:05)
[2022-01-20] MEDS: buPROPion 100 MG TAB PO SCH (10:05)
--- NOTE | 2022-01-20 12:53 | Progress Note ---
Assessment and Plan A: PPD#3 s/p Primary C/S at term P: Continue with routine care until discharge. Patient to follow up with psychiatry outpatient. Subjective - Subjective Principal diagnosis: s/p , cHTN, poorly controlled Type 1 Diabetes Mellitus, Bipolar Di Interval history: PPD#3 s/p Primary C/S at term. Patient is feeling well and without complaints. She reports adequate pain control with medications. She denies issues with ambulation, reports +flatus and decreasing lochia. Patient reports: appetite normal, voiding normally, pain well controlled, flatus, ambulating normally [place]: doing well Objective - Vital Signs Latest vital signs: Vital Signs Temp Pulse Resp BP BP Pulse Ox Pulse Ox 01/20/22 07:38 98.6 F 87 20 141/75 100 01/20/22 07:35 98 01/20/22 06:10 98 01/20/22 05:05 98.6 F 83 18 138/73 100 01/20/22 04:17 98 01/20/22 02:15 98 01/20/22 00:38 98.5 F 85 18 128/70 100 01/19/22 23:40 98 01/19/22 21:40 98 01/19/22 20:09 99.3 F 102 H 18 144/79 100 01/19/22 19:55 98 01/19/22 16:01 97.9 F 88 20 140/77 100 01/19/22 13:30 97.9 F 88 14 123/70 99 Intake and Output 01/19/22 01/20/22 01/20/22 23:59 07:59 15:59 Intake Total 240 480 Balance 240 480 Intake: Intake, Free Water 240 480 Other: # Voids Void 1 1 - Labs Labs: Abnormal lab results 01/19/22 01/19/22 01/19/22 Range/Units 08:28 18:08 21:40 Glucose (65-100) mg/dL POC Glucose 174 H 64 L 130 H (70-105) mg/dL Calcium (8.4-10.2) mg/dL 01/20/22 Range/Units 00:27 Glucose 143 H (65-100) mg/dL POC Glucose (70-105) mg/dL Calcium 8.2 L (8.4-10.2) mg/dL
--- NOTE | 2022-01-20 12:56 | Discharge Summary ---
Providers - Providers Date of Admission: 01/14/22 16:52 Date of discharge: 01/20/22 Attending physician: RADHA LANIER 01/14/22 18:34 Consult to Dietitian/Nutrition [CONS] Routine Physician Instructions: Reason For Exam: Reason for Consult: Diet education 01/17/22 19:02 Consult to Training Personnel Supervisor [CONS] Routine Reason For Exam: 01/18/22 03:07 Consult to Physician [CONS] Routine Comment: Consulting Provider: NILSON GOMEZ Physician Instructions: Reason For Exam: Hyperglycemia, Type 1 DM, CHTN w superimposed pre 01/18/22 04:15 Consult to Dietitian/Nutrition [CONS] Routine Physician Instructions: Reason For Exam: Reason for Consult: Diet education 01/18/22 11:30 psychiatry consult [Consult to Mental Health] [CONS] Stat Reason For Exam: Volatile Behavior Primary care physician: RADHA LANIER Hospitalization Reason for admission: induction of labor (Poorly controlled DM Type I and CHTN) Delivery: Procedure: section Incision: normal, dry, intact, warm Other procedures: none complications: none Discharge diagnosis: IUP at term delivered [place] baby: male Hospital course: 22-year-old at 35+6 weeks presented for induction of labor, she went on to deliver a viable male via primary C/S at 36 weeks due to arrest of dilation. Her course was complicated by hyperglycemia d/t poorly controlled Type 1 DM and CHTN which were both stabilized prior to discharge. She was also cleared by psychiatry for mood disorder and has plans to follow-up outpatient. Condition at discharge: Good Disposition: 01 HOME / SELF CARE / HOMELESS Plan - Discharge Medications Prescriptions: Lurasidone HCl [Latuda] 20 mg PO QDAY #30 Ibuprofen [Motrin] 800 mg PO Q8HR PRN #60 tablet PRN Reason: Pain , Severe (7-10) oxyCODONE /ACETAMINOPHEN [Percocet 5/325] 1 tab PO Q6HR PRN #30 tablet PRN Reason: Pain NIFEdipine XL [Procardia Xl] 30 mg PO Q12HR #60 tab buPROPion [Wellbutrin] 100 mg PO DAILY #30 tab - Provider Discharge Summary Activity: other (Routine, no sex or strenuous exercise for 8 weeks, no heavy lifting for 4 weeks) Diet: routine Instructions: routine Additional instructions: [] Smoking cessation referral if applicable(refer to patient education folder for contact #) [] Refer to [employer] Booklet Call your doctor immediately for: * Fever > 100.5 * Heavy vaginal bleeding ( >1 pad per hour) * Severe persistent headache * Shortness of breath * Reddened, hot, painful area to leg or breast * Drainage or odor from incision. * Keep incision clean and dry at all times and follow doctor's instructions regarding bathing/showering - Follow up plan Follow up: [facility] HOUSEKEEPER [Advanced Practice Nurse] - 14 Days Forms: [facility] Discharge Summary, Work/School Release Form
[2022-01-20 13:29] VITALS: BP 144/95
== END 2022-01-20 01:25 | disposition home or self-care (01) | DRG 765 ==
LOC: LD 14:40 → UNDOADMIN 14:40 → EEVIPCON 16:52 → LD 16:52 → OB 01-18 20:31
PROVIDERS: ADMIT Obstetrics & Gynecology; ATTEND Obstetrics & Gynecology
PROC: 10D00Z1 Extraction of Products of Conception, Low, Open Approach (ICD-10-PCS; principal; 2022-01-17)
PROC: 3E0T3BZ Introduction of Anesthetic Agent into Peripheral Nerves and Plexi, Percutaneous Approach (ICD-10-PCS; 2022-01-17)
PROC: 3E0234Z Introduction of Serum, Toxoid and Vaccine into Muscle, Percutaneous Approach (ICD-10-PCS; 2022-01-18)
PROC: 3E0134Z Introduction of Serum, Toxoid and Vaccine into Subcutaneous Tissue, Percutaneous Approach (ICD-10-PCS; 2022-01-18)
DX: O24.02 Pre-existing type 1 diabetes mellitus, in childbirth (principal); O10.92 Unspecified pre-existing hypertension complicating childbirth; E10.65 Type 1 diabetes mellitus with hyperglycemia; Z20.822 Contact with and (suspected) exposure to COVID-19; F31.9 Bipolar disorder, unspecified; Z37.0 Single live birth; Z23 Encounter for immunization; O99.344 Other mental disorders complicating childbirth; Z3A.35 35 weeks gestation of pregnancy; O99.334 Smoking (tobacco) complicating childbirth; Z91.19 Patient's noncompliance with other medical treatment and regimen; Z82.49 Family history of ischemic heart disease and other diseases of the circulatory system; Z91.040 Latex allergy status; Z88.8 Allergy status to other drugs, medicaments and biological substances
CPT/HCPCS: 36415; 59025; 59200; 76816; 76819; 80048; 82565; 82962; 83036; 83615; 83735; 84450; 84460; 84550; 85014; 85018; 85025; 85027; 86592; 86850; 86900; 86901; 88307; G0378; J3490; J7121; Q9967; J0290; J0360; J0595; J0690; J1100; J1170; J1815; J1885; J2060; J2405; J2590; J3010; J3475; J7030; J7040; J7120; U0003